=== PATIENT | female | born 1945 | race Caucasian/White ===

== ENCOUNTER 2017-09-07 07:52 | Observation (INO) | payer MEDICARE ==
[~2017-09-07] VITALS: Ht 165.1 cm; Wt 111.4 kg
[2017-09-07 09:03] LABS: HEMATOCRIT 36.5 % (36.0-48.0); MCH 29.6 pg (26.0-34.0); MCHC 32.9 g/dL (31.0-37.0); MCV 90.1 fL (80.0-100.0); MEAN PLATELET VOLUME 8.4 fL (7.4-10.4); NEUTROPHILS 75.8 % (40-80); PLATELET COUNT 377 10x3/uL (130-400); RBC 4.05 10x6/uL (4.00-5.40); RDW 13.1 % (11.5-14.5); WBC 9.8 10x3/uL (4.8-10.8)
[2017-09-07 09:14] LABS: ALBUMIN 2.9 g/dL (3.4-5.0); ALKALINE PHOSPHATASE 97 U/L (46-116); ALT (SGPT) 34 U/L (10-68); BILIRUBIN - TOTAL 0.44 mg/dL (0.2-1.3); CALC OSMOLALITY 270 mosm/kg (275-300); CALCIUM 9.3 mg/dL (8.5-10.1); CARBON DIOXIDE 30.1 mmol/L (21.0-32.0); CHLORIDE - SERUM 98 mmol/L (98-107); CREATININE - SERUM 0.8 mg/dL (0.6-1.3); GLUCOSE 139 mg/dL (74-106); POTASSIUM - SERUM 4.3 mmol/L (3.5-5.1); PROTEIN - SERUM 6.3 g/dL (6.4-8.2); SODIUM 135 mmol/L (136-145); UREA NITROGEN 9 mg/dL (7-18); eGFR NON AFRICAN AMERICAN 75 mL/min (90-120)
[2017-09-07 09:25] LABS: APPEARANCE HAZY (CLEAR); BILIRUBIN NEGATIVE (NEGATIVE); COLOR YELLOW (YELLOW); GLUCOSE NEGATIVE (NEGATIVE); KETONE NEGATIVE (NEGATIVE); NITRITE NEGATIVE (NEGATIVE); PROTEIN NEGATIVE (NEGATIVE); SPECIFIC GRAVITY 1.005 (1.005-1.020)
[2017-09-07 09:26] LABS: BACTERIA MANY /hpf (NONE SEEN)
[2017-09-07 09:27] LABS: EPITHELIAL CELLS 0-5 /hpf (0-5); MUCUS <1+ /lpf (NONE SEEN); RED CELLS - URINE RARE /hpf (0-5)
[2017-09-07] MEDS ORDERED: COREG6.25 MG (20:45)
[2017-09-07 22:44] VITALS: BP 150/69
[2017-09-08 00:59] VITALS: BP 125/69
[2017-09-08] MEDS ORDERED: LASIX40 MG PO (04:58)
[2017-09-08] MEDS ORDERED: COLACE100 MG PO (04:58)
[2017-09-08] MEDS ORDERED: LEVEMIR100 U/M1 SC (04:59)
[2017-09-08] MEDS ORDERED: MIRALAX17 GM PO (05:00)
[2017-09-08] MEDS ORDERED: LIPITOR80 MG PO (05:01)
[2017-09-08] MEDS ORDERED: BAYER CHEWABLE81 MG PO (05:01)
[2017-09-08] MEDS ORDERED: PROAIR HFA8.5 GM INH (05:01)
[2017-09-08] MEDS ORDERED: CELEXA40 MG PO (05:02)
[2017-09-08] MEDS ORDERED: PLAVIX75 MG PO (05:02)
[2017-09-08] MEDS ORDERED: VITAMIN D31000 UNIT PO (05:02)
[2017-09-08] MEDS ORDERED: VISTARIL25 MG PO (05:03)
[2017-09-08] MEDS ORDERED: VISTARIL50 MG PO (05:04)
[2017-09-08] MEDS ORDERED: NOVOLIN R100 U/ML SQ (05:04)
[2017-09-08] MEDS ORDERED: GLUCOPHAGE1000 MG PO (05:08)
[2017-09-08] MEDS ORDERED: NOVOLIN R100 U/ML (05:08)
[2017-09-08] MEDS ORDERED: SYNTHROID150 MCG PO (05:08)
[2017-09-08 05:09] LABS: BASOPHILS 0.4 % (0-2); EOSINOPHILS 2.7 % (0-7); HEMATOCRIT 35.5 % (36.0-48.0); IMMATURE GRANULOCYTES 0.9 % (0-5); LYMPHOCYTES 26.1 % (15-50); MEAN PLATELET VOLUME 9.1 fL (7.4-10.4); MONOCYTES 7.5 % (2-11); NEUTROPHILS 62.4 % (40-80); PLATELET COUNT 360 10x3/uL (130-400); RBC 3.79 10x6/uL (4.00-5.40); RDW 13.5 % (11.5-14.5); WBC 8.1 10x3/uL (4.8-10.8)
[2017-09-08] MEDS ORDERED: ALTACE5 MG PO (05:09)
[2017-09-08] MEDS ORDERED: DETROL LA2 MG PO (05:09)
[2017-09-08] MEDS ORDERED: NITROSTAT0.4 MG SL (05:10)
[2017-09-08 05:17] LABS: MCV 93.7 fL (80.0-100.0)
[2017-09-08 05:27] VITALS: BP 117/54
[2017-09-08 05:30] LABS: ALBUMIN 2.5 g/dL (3.4-5.0); ANION GAP 13.6 mmol/L (8-16); BILIRUBIN - TOTAL 0.5 mg/dL (0.2-1.3); CALCIUM 8.8 mg/dL (8.5-10.1); CARBON DIOXIDE 27.2 mmol/L (21.0-32.0); CREATININE - SERUM 0.9 mg/dL (0.6-1.3); POTASSIUM - SERUM 3.8 mmol/L (3.5-5.1); PROTEIN - SERUM 6.2 g/dL (6.4-8.2)
[2017-09-08 07:57] VITALS: BP 145/63
[2017-09-08 10:25] VITALS: Ht 165.1 cm; Wt 111.4 kg
[2017-09-08 11:30] VITALS: BP 131/62
[2017-09-08 15:52] VITALS: BP 139/73
[2017-09-08 20:07] VITALS: BP 135/55
[2017-09-09] VITALS: BP 121/57
[2017-09-09 05:21] VITALS: BP 127/61
[2017-09-09 06:36] LABS: BASOPHILS 0.6 % (0-2); EOSINOPHILS 3.1 % (0-7); HEMATOCRIT 36.1 % (36.0-48.0); HEMOGLOBIN 11.3 g/dL (12-16); IMMATURE GRANULOCYTES 1.2 % (0-5); LYMPHOCYTES 24.7 % (15-50); MCH 29.4 pg (26.0-34.0); MCHC 31.3 g/dL (31.0-37.0); MEAN PLATELET VOLUME 9.2 fL (7.4-10.4); NEUTROPHILS 63.4 % (40-80); PLATELET COUNT 384 10x3/uL (130-400); RBC 3.84 10x6/uL (4.00-5.40); RDW 13.7 % (11.5-14.5); WBC 8.3 10x3/uL (4.8-10.8)
[2017-09-09 07:18] LABS: ALBUMIN 2.7 g/dL (3.4-5.0); ANION GAP 13.7 mmol/L (8-16); BILIRUBIN - TOTAL 0.42 mg/dL (0.2-1.3); CALCIUM 9.2 mg/dL (8.5-10.1); CREATININE - SERUM 0.9 mg/dL (0.6-1.3); POTASSIUM - SERUM 3.7 mmol/L (3.5-5.1); PROTEIN - SERUM 6.4 g/dL (6.4-8.2)
[2017-09-09 07:51] VITALS: BP 142/68
[2017-09-09 11:43] VITALS: BP 140/72
== END 2017-09-09 16:18 ==
LOC: D.ER 07:52 → OBSVTIME 16:15 → D.M2 16:15
PROVIDERS: Emergency Medicine
DX: R53.1 Weakness (principal); E78.5 Hyperlipidemia, unspecified; E11.9 Type 2 diabetes mellitus without complications; I10 Essential (primary) hypertension; F41.9 Anxiety disorder, unspecified; F32.9 Major depressive disorder, single episode, unspecified; Z95.1 Presence of aortocoronary bypass graft

== ENCOUNTER 2018-03-20 13:13 | Emergency (ER) | payer MEDICARE ==
[~2018-03-20] VITALS: Ht 165.1 cm; Wt 100.0 kg
[~2018-03-20 13:13] MED LIST: ALTACE5 MG PO; BAYER CHEWABLE81 MG PO; CELEXA40 MG PO; COLACE100 MG PO; COREG6.25 MG; DETROL LA2 MG PO; GLUCOPHAGE1000 MG PO; LASIX40 MG PO; LEVEMIR100 U/M1 SC; LIPITOR80 MG PO; MIRALAX17 GM PO; NITROSTAT0.4 MG SL; NOVOLIN R100 U/ML; NOVOLIN R100 U/ML SQ; PLAVIX75 MG PO; PROAIR HFA8.5 GM INH; SYNTHROID150 MCG PO; VISTARIL25 MG PO; VISTARIL50 MG PO; VITAMIN D31000 UNIT PO
[2018-03-20 13:23] VITALS: Ht 165.1 cm; Wt 100.0 kg
[2018-03-20 16:42] VITALS: BP 104/078
== END 2018-03-20 16:45 | disposition home or self-care (01) ==
LOC: D.ER 13:13
DX: S96.911A Strain of unspecified muscle and tendon at ankle and foot level, right foot, initial encounter (principal); X58.XXXA Exposure to other specified factors, initial encounter; Y93.89 Activity, other specified; Y92.019 Unspecified place in single-family (private) house as the place of occurrence of the external cause; E11.9 Type 2 diabetes mellitus without complications; I10 Essential (primary) hypertension

== ENCOUNTER 2018-03-26 19:00 | Outpatient (CLI) | payer MEDICARE ==
[2018-03-20 13:23] VITALS: BMI 36.6
== END 2018-03-26 23:59 | disposition home or self-care (01) ==
LOC: D.MAMMO 19:00
DX: Z12.31 Encounter for screening mammogram for malignant neoplasm of breast (principal)

== ENCOUNTER → 2018-06-20 17:55 | Outpatient (CLI) | payer MEDICARE ==
[2018-03-20 13:23] VITALS: BMI 36.6
== END | disposition home or self-care (01) ==
LOC: D.MAMMO 09:30
DX: R92.8 Other abnormal and inconclusive findings on diagnostic imaging of breast (principal)

== ENCOUNTER 2018-10-06 15:07 | Inpatient (IN) | payer MEDICARE ==
--- NOTE | 2018-10-05 22:11 | NUR ---
RECIEVED REPORT FROM ER. BROUGHT TO FLOOR IN W/C. TRANSFERED SELF INTO BED. ALERT AND ORIENTED X4. LUNG SOUNDS CLEAR BILAT WITH DIMINISHED LOWER LOBES.IV TO RIGHT WRIST AND LEFT AC SL..DENIES ANY NAUSEA AT THIS TIME.
[~2018-10-06] VITALS: Ht 167.6 cm; Wt 105.0 kg
[~2018-10-06 15:07] MED LIST changes: -COREG6.25 MG; +COREG6.25 MG PO
[2018-10-06 16:03] LABS: BASOPHILS 0.7 % (0-2); EOSINOPHILS 1.6 % (0-7); HEMATOCRIT 42.5 % (36.0-48.0); HEMOGLOBIN 13.7 g/dL (12-16); IMMATURE GRANULOCYTES 0.1 % (0-5); LYMPHOCYTES 17.2 % (15-50); MCH 30.4 pg (26.0-34.0); MCHC 32.2 g/dL (31.0-37.0); MCV 94.4 fL (80.0-100.0); MEAN PLATELET VOLUME 9.6 fL (7.4-10.4); MONOCYTES 6.4 % (2-11); PLATELET COUNT 329 10x3/uL (130-400); WBC 9.6 10x3/uL (4.8-10.8)
[2018-10-06 16:15] LABS: ALBUMIN 3.4 g/dL (3.4-5.0); ALKALINE PHOSPHATASE 121 U/L (46-116); ALT (SGPT) 15 U/L (10-68); BILIRUBIN - TOTAL 0.82 mg/dL (0.2-1.3); CALC OSMOLALITY 282 mosm/kg (275-300); CALCIUM 9.5 mg/dL (8.5-10.1); CARBON DIOXIDE 26.4 mmol/L (21.0-32.0); CHLORIDE - SERUM 99 mmol/L (98-107); CREATININE - SERUM 0.9 mg/dL (0.6-1.3); POTASSIUM - SERUM 3.9 mmol/L (3.5-5.1); PROTEIN - SERUM 7.8 g/dL (6.4-8.2); SODIUM 136 mmol/L (136-145); UREA NITROGEN 21 mg/dL (7-18); eGFR NON AFRICAN AMERICAN 65 mL/min (90-120)
[2018-10-06 16:16] LABS: GLUCOSE 250 mg/dL (74-106)
[2018-10-06 16:25] LABS: APPEARANCE CLEAR (CLEAR); BILIRUBIN NEGATIVE (NEGATIVE); COLOR YELLOW (YELLOW); GLUCOSE 100 mg/dL (NEGATIVE); KETONE NEGATIVE (NEGATIVE); NITRITE NEGATIVE (NEGATIVE); PROTEIN 1+ mg/dL (NEGATIVE); UROBILINOGEN NORMAL (NORMAL)
[2018-10-06 16:27] LABS: AMYLASE - SERUM 36 U/L (25-115); CKMB 0.5 U/L (0.0-3.6); LIPASE 87 U/L (73-393); TROPONIN-I < 0.017 ng/mL (0.000-0.060)
--- NOTE | 2018-10-06 19:08 | NUR ---
PT RESTING ON BED, NO S/S OF ACUTE DISTRESS NOTED AT THIS TIME. PT FAMILY AT BEDSIDE. PT AND FAMILY INFORMED OF PLAN OF CARE. PT DENIES NEEDS AT THIS TIME.
[2018-10-06 19:18] VITALS: BP 136/54
[2018-10-06 19:50] VITALS: BP 117/80
[2018-10-06] MEDS ORDERED: SYNTHROID175 MCG PO (22:13)
[2018-10-06] MEDS ORDERED: ZANAFLEX2 M1 PO ×2 (22:16→22:17)
[2018-10-06 22:39] VITALS: BP 117/80; BMI 38.0
[2018-10-06] MEDS ORDERED: FOLIC ACID1 MG PO (22:52)
[2018-10-06 23:55] VITALS: BP 134/72
[2018-10-07 03:53] VITALS: BP 124/67
[2018-10-07 05:22] LABS: EOSINOPHILS 1.9 % (0-7); HEMOGLOBIN 12.4 g/dL (12-16); IMMATURE GRANULOCYTES 0.2 % (0-5); LYMPHOCYTES 35.7 % (15-50); MCH 30.1 pg (26.0-34.0); MCHC 31.8 g/dL (31.0-37.0); MCV 94.7 fL (80.0-100.0); MEAN PLATELET VOLUME 9.8 fL (7.4-10.4); MONOCYTES 6.1 % (2-11); NEUTROPHILS 55.1 % (40-80); PLATELET COUNT 266 10x3/uL (130-400); RBC 4.12 10x6/uL (4.00-5.40)
[2018-10-07 05:29] LABS: WBC 6.2 10x3/uL (4.8-10.8)
[2018-10-07 05:48] LABS: ALKALINE PHOSPHATASE 106 U/L (46-116); BILIRUBIN - TOTAL 0.59 mg/dL (0.2-1.3); CARBON DIOXIDE 28.5 mmol/L (21.0-32.0); CHLORIDE - SERUM 100 mmol/L (98-107); CREATININE - SERUM 0.8 mg/dL (0.6-1.3); POTASSIUM - SERUM 3.7 mmol/L (3.5-5.1); PROTEIN - SERUM 6.8 g/dL (6.4-8.2); SODIUM 137 mmol/L (136-145); UREA NITROGEN 19 mg/dL (7-18); eGFR NON AFRICAN AMERICAN 75 mL/min (90-120)
[2018-10-07 05:49] LABS: ALT (SGPT) 10 U/L (10-68); CALC OSMOLALITY 278 mosm/kg (275-300); GLUCOSE 161 mg/dL (74-106)
--- NOTE | 2018-10-07 07:30 | NUR ---
RECEIVED PT IN BED EYES CLOSED RESP UNLABORED NAD NOTED
[2018-10-07 08:20] VITALS: BP 164/95
[2018-10-07] MEDS ORDERED: OMEPRAZOLE20 M1 PO (09:57)
--- NOTE | 2018-10-07 11:16 | NUR ---
FSBS 235 HUMALOG INSULIN 8 UNITS GIVEN SQ RT ARM ZOFRAN 4 MG GIVEN SIV FOR C/O NAUSEA
[2018-10-07 15:34] VITALS: BP 132/74
--- NOTE | 2018-10-07 17:17 | NUR ---
FSBS 225 HUMALOG 8 UNITS QIVEN SQ RT ARM
--- NOTE | 2018-10-07 20:40 | NUR ---
INITIAL ROUNDS AND ASSESSMENT COMPLETED. SR 85 PER TELEMETRY. SALINE LOCK TO RIGHT WRIST. NONLABORED RESPIRATIONS ON ROOM AIR. TALKING ANIMATEDLY ON PHONE UNTIL NURSE ENTERED ROOM AND THEN PT BECAME VERY SOMBER AND REPEATEDLY TOLD NURSE HOW SICKLY SHE IS AND HOW SHE JUST FEELS "HORRIBLE". WILL MONITOR AND CPOC.
[2018-10-07 21:15] VITALS: BP 102/57
--- NOTE | 2018-10-08 00:46 | NUR ---
BEDTIME WERE GIVEN. FSBS DONE. PT DECLINED SLIDING SCALE INSULIN BLOOD SUGAR LESS THAN 200. MONITOR AND CPOC.
[2018-10-08 01:40] VITALS: BP 128/68
--- NOTE | 2018-10-08 02:52 | NUR ---
PT RESTING IN BED WITH NO DISTRESS. RESPS EVEN/NONLABORED. CALL LIGHT IN REACH. SR UP X 2. MONITOR AND CPOC.
[2018-10-08 04:48] LABS: BASOPHILS 0.4 % (0-2); EOSINOPHILS 2.3 % (0-7); HEMATOCRIT 36.5 % (36.0-48.0); HEMOGLOBIN 11.5 g/dL (12-16); IMMATURE GRANULOCYTES 0.1 % (0-5); MCH 29.6 pg (26.0-34.0); MCHC 31.5 g/dL (31.0-37.0); MCV 94.1 fL (80.0-100.0); MEAN PLATELET VOLUME 9.8 fL (7.4-10.4); MONOCYTES 7.6 % (2-11); NEUTROPHILS 53.6 % (40-80); PLATELET COUNT 274 10x3/uL (130-400); RBC 3.88 10x6/uL (4.00-5.40); WBC 6.9 10x3/uL (4.8-10.8)
[2018-10-08 04:56] VITALS: BP 114/69
[2018-10-08 05:15] LABS: ALBUMIN 2.9 g/dL (3.4-5.0); BILIRUBIN - TOTAL 0.48 mg/dL (0.2-1.3); CALCIUM 8.6 mg/dL (8.5-10.1); CARBON DIOXIDE 29.6 mmol/L (21.0-32.0); MAGNESIUM - SERUM 1.5 mg/dL (1.8-2.4); POTASSIUM - SERUM 3.6 mmol/L (3.5-5.1); PROTEIN - SERUM 6.6 g/dL (6.4-8.2)
[2018-10-08 05:19] LABS: CREATININE - SERUM 1.1 mg/dL (0.6-1.3)
[2018-10-08 07:29] VITALS: BP 121/74
--- NOTE | 2018-10-08 11:00 | NUR ---
ALERT AND ORIENTED X4. SITTING UP IN BED. BLOOD PRESSURE LOW 86/40 MANUALLY. BOLUS 500mL NS. REASSESS BP MANUALLY. BP-110/58. DECREASE FLUID TO KVO. PATIENT REPORTS FEELING BETTER AFTER BOLUS. CONTINUE PLAN OF CARE AND SAFETY PRECAUTIONS. SINUS RHYTHM ON TELEMETRY.
[2018-10-08 11:48] VITALS: BP 110/58
[2018-10-08 14:16] VITALS: Ht 167.6 cm; Wt 105.0 kg
[2018-10-08 15:36] VITALS: BP 104/54
--- NOTE | 2018-10-08 17:07 | NUR ---
ALERT AND ORIENTED X4. RESTING IN BED. COREG HELD DUE TO BP-104/54. SINUS RHYTHM 74 ON TELEMETRY. STAND BY ASSIST TO RESTROOM AND BACK TO BED. DENIES ANY OTHER NEEDS. CONTINUE PLAN OF CARE AND SAFETY PRECAUTIONS.
--- NOTE | 2018-10-08 19:11 | NUR ---
RECIEVED LAYING IN BED WITH EYES CLOSED AND LIGHTS OFF. EASILY AROUSES TO VERBAL STIMULI. IV TO RIGHT WRIST SL.. ORIENTED X4. UP AD MIRIAN TO B/R. TELEMETRTY IN PLACE. SPOKE WITH PT ABOUT POSSIBLE DISCHARGE TOMORROW AND SHE STATED " I DON'T WANT TO GO HOME. I'M NOT WELL AND THEY HAVE'NT FIXED MY STOMACH". EXPLAINED THIS NURSE IS ONLY AWARE OF BILATERAL PE'S AND WE HAVE BEEN TREATMENTING HER FOR THAT. DENIES ANY NEEDS AT THIS TIME.
[2018-10-08 20:21] VITALS: BP 127/70
[2018-10-09 01:31] VITALS: BP 122/62
[2018-10-09 04:13] LABS: BASOPHILS 0.7 % (0-2); EOSINOPHILS 2.7 % (0-7); HEMATOCRIT 35.4 % (36.0-48.0); HEMOGLOBIN 11.3 g/dL (12-16); IMMATURE GRANULOCYTES 0.1 % (0-5); MCH 29.7 pg (26.0-34.0); MCHC 31.9 g/dL (31.0-37.0); MCV 93.2 fL (80.0-100.0); MEAN PLATELET VOLUME 9.5 fL (7.4-10.4); MONOCYTES 6.4 % (2-11); NEUTROPHILS 57.1 % (40-80); PLATELET COUNT 259 10x3/uL (130-400)
[2018-10-09 04:36] LABS: ALBUMIN 2.7 g/dL (3.4-5.0); ANION GAP 12.8 mmol/L (8-16); BILIRUBIN - TOTAL 0.47 mg/dL (0.2-1.3); CALCIUM 8.4 mg/dL (8.5-10.1); CARBON DIOXIDE 27.8 mmol/L (21.0-32.0); CREATININE - SERUM 0.9 mg/dL (0.6-1.3); MAGNESIUM - SERUM 1.4 mg/dL (1.8-2.4); POTASSIUM - SERUM 3.6 mmol/L (3.5-5.1); PROTEIN - SERUM 6.3 g/dL (6.4-8.2)
[2018-10-09 06:19] VITALS: BP 133/66
[2018-10-09 07:27] VITALS: BP 147/80
--- NOTE | 2018-10-09 09:42 | NUR ---
TELEMETRY SR. CALL LIGHT IN REACH. BATH GIVEN WITH TIME STUDY ANALYST ASSIST. WILL CONT. PLAN OF CARE.
[2018-10-09 12:11] VITALS: BP 124/53
[2018-10-09 15:52] VITALS: BP 118/72
--- NOTE | 2018-10-09 17:11 | MORECARE ---
CASE MANAGEMENT DISCHARGE SUMMARY PATIENT: YONAS CARDONA UNIT: [id number] ADM DATE: 10/06/18 AGE: 73 : 47 SEX: F ROOM/BED: D.2130 AUTHOR: SARBJIT DEVRIES PHYSICIAN: REFERRING PHYSICIAN: RE HAMILTON MD DATE OF SERVICE: 10/09/18 Discharge Plan Patient Name: YONAS CARDONA [facility] [facility] 1945 Planned Disposition: Home with Home Health Anticipated Discharge Date: 10/10/18 Discharge Date: Expected LOS: 4 Initial Reviewer: [email or web address] Initial Review Date: 10/06/2018 Generated: 10/09/18 6:11 pm DCPIA - Discharge Planning Initial Assessment Updated by [email or web address]: Tony Coburn on 10/09/18 5:09 pm * Is the patient Alert and Oriented? Yes * How many steps to enter\exit or inside your home? * PCP DR. CARCAMO * [facility]acy [facility] * Preadmission Environment Home Alone * ADLs Independent * Equipment Cane Elevated Toliet Seat Glucometer Walker * Other Equipment NO MEDICAL EQUIPMENT PROVIDER PREFERENCE * List name and contact numbers for known caregivers / representatives who currently or will assist patient after discharge: AWILDA MAYES, BROTHER, * Verbal permission to speak to the caregivers and representatives has been obtained from the patient. N/A * Community resources currently utilized None * Please name any agencies selected above. NONE * Additional services required to return to the preadmission environment? No * Can the patient safely return to the preadmission environment? Yes * Has this patient been hospitalized within the prior 30 days at any hospital? No Patient Name: YONAS CARDONA Page 45412 at 1711 All edits/amendments must be made on the electronic document DICTATION DATE: 10/09/181709 OXYGEN EQUIPMENT TECHNICIAN: CHILANGO 10/09/181709 RPT#: [id number] DC DATE: STATUS: ADM IN [facility] [address] [place] [address] END OF REPORT
--- NOTE | 2018-10-09 17:20 | MORECARE ---
CASE MANAGEMENT DISCHARGE SUMMARY PATIENT: YONAS CARDONA UNIT: [id number] ADM DATE: 10/06/18 AGE: 73 : 47 SEX: F ROOM/BED: D.1620 AUTHOR: KAYCE,DOC PHYSICIAN: REFERRING PHYSICIAN: RE HAMILTON MD DATE OF SERVICE: 10/09/18 Discharge Plan Patient Name: YONAS CARDONA Facility: [facility]:[place] : 1945 Planned Disposition: Home with Home Health Anticipated Discharge Date: 10/10/18 Discharge Date: Expected LOS: 4 Initial Reviewer: [email or web address] Initial Review Date: 10/06/2018 Generated: 10/09/18 6:20 pm Comments DCP- Discharge Planning Updated by [email or web address]: Tony Coburn on 10/09/18 4:[address] Patient Name: YONAS CARDONA Admission Status: ER Accout number: [id number] Admission Date: 10-06-2018 : 1945 Admission Diagnosis:SHORTNESS OF BREATH Attending: RE HAMILTON Current LOS: 3 Anticipated DC Date: 10-10-2018 Planned Disposition: Home with Home Health Primary Insurance: [employer] CHOICE PPO [facility] PLANNED EXTERNAL PROVIDER: TO BE DETERMINED Discharge Planning Comments: CM DIRECTED BY LENO BRUNNER TO DETERMINE IF PT'S INSURANCE WILL COVER ELIQUIS. CM MET WITH PT IN ROOM TO DISCUSS DISCHARGE PLANNING AND NEEDS. PT REPORTS LIVING AT HOME INDEPENDENTLY AND ALONE. PT HAS BLOOD PRESSURE MONITOR, CANE, GLUCOMETER, ELEVATED TOILET SEAT ADN WALKER WITH NO MEDICAL EQUIPMENT PROVIDER PREFERENCE. PT HAS NO OUTSIDE SERVICES ASSISTING IN THE HOME. CM DISCUSSED AVAILABILITY OF HOME HEALTH, REHAB SERVICES AND MEDICAL EQUIPMENT. PT WOULD LIKE HOME HEALTH TO ASSIST WITH MEDICATION MANAGEMENT IF THE DOCTOR AGREES WITH THE NEED, PT REPORTS HER BROTHER WILL PICK HER UP FOR DISCHARGE HOME. PT CALLED HER INSURANCE COMPANY AND NOTIFIED CM THAT [employer] WILL COVER ELIQUIS FOR $8.50 MONTHLY COPAY FOR 30 OR 90 DAY SUPPLY. PT REPORTS THIS IS AFFORDABLE. ELIQUIS IS COVERED BY PT'S INSURANCE. PT REPORTS ABILITY TO AFFORD COPAY FOR ELIQUIS. PT ASKED FOR HOME HEALTH TO ASSIST WITH MEDICATION MANAGEMENT; CM TO ARRANGE HOME HEALTH WITH PHYSICIAN AGREEMENT AND ORDERS FOR HOME HEALTH. Environmental Remediation Consultant: Tony Coburn DCPIA - Discharge Planning Initial Assessment Updated by [id number]: Tony Coburn on 10/09/18 5:09 pm * Is the patient Alert and Oriented? Yes * How many steps to enter\exit or inside your home? * PCP DR. CARCAMO * Pharmacy [facility] * Preadmission Environment Home Alone * ADLs Independent * Equipment Cane Elevated Toliet Seat Glucometer Walker * Other Equipment NO MEDICAL EQUIPMENT PROVIDER PREFERENCE * List name and contact numbers for known caregivers / representatives who currently or will assist patient after discharge: JULIAN COSTELLOER, * Verbal permission to speak to the caregivers and representatives has been obtained from the patient. N/A * Community resources currently utilized None * Please name any agencies selected above. NONE * Additional services required to return to the preadmission environment? No * Can the patient safely return to the preadmission environment? Yes * Has this patient been hospitalized within the prior 30 days at any hospital? No Last DP export: 10/09/18 4:11 p Patient Name: YONAS CARDONA Page [id number] at 1720 All edits/amendments must be made on the electronic document DICTATION DATE: 10/09/181719 ROOMING HOUSE INSPECTOR: CHILANGO 10/09/181719 RPT#: [id number] DC DATE: STATUS: ADM IN [facility] [address] [place] [address] END OF REPORT
[2018-10-09 20:00] VITALS: BP 128/73
--- NOTE | 2018-10-09 20:01 | NUR ---
INITIAL ASSESSMENT COMPLETE - PT FOUND WET IN BED, CHANGED LINENS AND CLEANED PT. READJUSTED IN BED AND PUT SR UP X2. BED IN LOWEST POSITION, CL IN REACH. RR EVEN AND UL, IV SL IN R WRIST. PT A/O X4, STATES SHE HAS PERIODS OF CONFUSION. EDUCATED PT TO CALL WHEN NEEDING HELP, PT VERBALIZED UNDERSTANDING. PLACED YELLOW GOWN ON PT. VSS PER TOP CASE ASSEMBLER. NO OTHER NEEDS NOTED AT THIS TIME. WCTM AND FOLLOW POC.
[2018-10-10 04:00] VITALS: BP 121/57
--- NOTE | 2018-10-10 05:11 | NUR ---
RESUMING PT CARE - PT RESTING IN BED WITH EYES CLOSED. RR EVEN AND UL, NO S/S OF DISTRESS. NO NEEDS NOTED AT THIS TIME. CL IN REACH, SR UP X2, BED IN LOWEST POSITION.
[2018-10-10 05:39] LABS: BASOPHILS 0.6 % (0-2); EOSINOPHILS 3.2 % (0-7); HEMATOCRIT 35.9 % (36.0-48.0); HEMOGLOBIN 11.2 g/dL (12-16); IMMATURE GRANULOCYTES 0.2 % (0-5); LYMPHOCYTES 29.6 % (15-50); MCH 29.7 pg (26.0-34.0); MCHC 31.2 g/dL (31.0-37.0); MEAN PLATELET VOLUME 9.5 fL (7.4-10.4); MONOCYTES 6.9 % (2-11); NEUTROPHILS 59.5 % (40-80); PLATELET COUNT 259 10x3/uL (130-400); RBC 3.77 10x6/uL (4.00-5.40); WBC 6.6 10x3/uL (4.8-10.8)
[2018-10-10 05:55] LABS: MCV 95.2 fL (80.0-100.0)
--- NOTE | 2018-10-10 06:16 | NUR ---
TO PT ROOM VIA AM MEDS. PT STATES HER THROAT AND EARS ARE SWOLLEN AND SORE. PT ALSO STATES SHE THINKS SHE IS HAVING PROBLEMS WITH HER "THYROID" AND WOULD LIKE HER THROAT CHECKED OUT. PALPATED THROAT AND LYMPH NODES SEEMS NORMAL, POSSIBLY SLIGHTLY SWOLLEN. WILL REPORT TO DAY NURSE. NO OTHER NEEDS NOTED AT THIS TIME. CL IN REACH, SR UP X2, BED IN LOWES POSITION.
[2018-10-10 06:24] LABS: ALBUMIN 2.9 g/dL (3.4-5.0); ANION GAP 12.2 mmol/L (8-16); BILIRUBIN - TOTAL 0.33 mg/dL (0.2-1.3); CALCIUM 8.9 mg/dL (8.5-10.1); CARBON DIOXIDE 30.3 mmol/L (21.0-32.0); CREATININE - SERUM 0.9 mg/dL (0.6-1.3); MAGNESIUM - SERUM 1.4 mg/dL (1.8-2.4); POTASSIUM - SERUM 3.5 mmol/L (3.5-5.1); PROTEIN - SERUM 6.6 g/dL (6.4-8.2)
--- NOTE | 2018-10-10 08:08 | NUR ---
INITIAL ROUNDING, THE PATIENT IS SLEEPING,NO S/S OF DISTRESS NOTED
[2018-10-10 08:15] VITALS: BP 132/74
[2018-10-10 10:20] LABS: ACLA - IGG AB <9 GPL U/mL (0-14); ACLA - IGM AB <9 MPL U/mL (0-12)
[2018-10-10 11:52] VITALS: BP 128/68
[2018-10-10] MEDS ORDERED: ELIQUIS5 MG PO ×2 (12:05→12:06)
--- NOTE | 2018-10-10 13:45 | MORECARE ---
CASE MANAGEMENT DISCHARGE SUMMARY PATIENT: YONAS CARDONA UNIT: [id number] ADM DATE: 10/06/18 AGE: 73 : 47 SEX: F ROOM/BED: D.8681 AUTHOR: KAYCE,DOC PHYSICIAN: REFERRING PHYSICIAN: RE HAMILTON MD DATE OF SERVICE: 10/10/18 Discharge Plan Patient Name: YONAS CARDONA Facility: [facility]:[place] : 1945 Planned Disposition: Home with Home Health Anticipated Discharge Date: 10/10/18 Discharge Date: Expected LOS: 4 Initial Reviewer: [id number] Initial Review Date: 10/06/2018 Generated: 10/10/18 2:44 pm Comments DCP- Discharge Planning Updated by [id number]: Tony Coburn on 10/09/18 4:[address] Patient Name: YONAS CARDONA Admission Status: ER Accout number: [id number] Admission Date: 10-06-2018 : 1945 Admission Diagnosis:SHORTNESS OF BREATH Attending: RE HAMILTON Current LOS: 3 Anticipated DC Date: 10-10-2018 Planned Disposition: Home with Home Health Primary Insurance: [employer] CHOICE PPO [facility] PLANNED EXTERNAL PROVIDER: TO BE DETERMINED Discharge Planning Comments: CM DIRECTED BY LENO BRUNNER TO DETERMINE IF PT'S INSURANCE WILL COVER ELIQUIS. CM MET WITH PT IN ROOM TO DISCUSS DISCHARGE PLANNING AND NEEDS. PT REPORTS LIVING AT HOME INDEPENDENTLY AND ALONE. PT HAS BLOOD PRESSURE MONITOR, CANE, GLUCOMETER, ELEVATED TOILET SEAT ADN WALKER WITH NO MEDICAL EQUIPMENT PROVIDER PREFERENCE. PT HAS NO OUTSIDE SERVICES ASSISTING IN THE HOME. CM DISCUSSED AVAILABILITY OF HOME HEALTH, REHAB SERVICES AND MEDICAL EQUIPMENT. PT WOULD LIKE HOME HEALTH TO ASSIST WITH MEDICATION MANAGEMENT IF THE DOCTOR AGREES WITH THE NEED, PT REPORTS HER BROTHER WILL PICK HER UP FOR DISCHARGE HOME. PT CALLED HER INSURANCE COMPANY AND NOTIFIED CM THAT [employer] WILL COVER ELIQUIS FOR $8.50 MONTHLY COPAY FOR 30 OR 90 DAY SUPPLY. PT REPORTS THIS IS AFFORDABLE. ELIQUIS IS COVERED BY PT'S INSURANCE. PT REPORTS ABILITY TO AFFORD COPAY FOR ELIQUIS. PT ASKED FOR HOME HEALTH TO ASSIST WITH MEDICATION MANAGEMENT; CM TO ARRANGE HOME HEALTH WITH PHYSICIAN AGREEMENT AND ORDERS FOR HOME HEALTH. Cnc Grinder: Tony Coburn DCPIA - Discharge Planning Initial Assessment Updated by [id number]: Tony Coburn on 10/09/18 5:09 pm * Is the patient Alert and Oriented? Yes * How many steps to enter\exit or inside your home? * PCP DR. CARCAMO * [facility]acy [facility] * Preadmission Environment Home Alone * ADLs Independent * Equipment Cane Elevated Toliet Seat Glucometer Walker * Other Equipment NO MEDICAL EQUIPMENT PROVIDER PREFERENCE * List name and contact numbers for known caregivers / representatives who currently or will assist patient after discharge: JULIAN COSTELLOER, * Verbal permission to speak to the caregivers and representatives has been obtained from the patient. N/A * Community resources currently utilized None * Please name any agencies selected above. NONE * Additional services required to return to the preadmission environment? No * Can the patient safely return to the preadmission environment? Yes * Has this patient been hospitalized within the prior 30 days at any hospital? No External Providers External Provider: [facility] Next Contact Date: 10/10/2018 Service Request Date: Service Type: Resolution: Reviewer: Comments: Last DP export: 10/09/18 4:20 p Patient Name: YONAS CARDONA Page [id number] at 1345 All edits/amendments must be made on the electronic document DICTATION DATE: 10/10/18 1344 RELOCATION SERVICES SPECIALIST: CHILANGO 10/10/18 1344 RPT#: [id number] DC DATE: STATUS: ADM IN [facility] [address] [place] [address] END OF REPORT
--- NOTE | 2018-10-10 13:56 | MORECARE ---
CASE MANAGEMENT DISCHARGE SUMMARY PATIENT: YONAS CARDONA UNIT: [id number] ADM DATE: 10/06/18 AGE: 73 : 47 SEX: F ROOM/BED: D.0524 AUTHOR: KAYCE,DOC PHYSICIAN: REFERRING PHYSICIAN: RE HAMILTON MD DATE OF SERVICE: 10/10/18 Discharge Plan Patient Name: YONAS CARDONA Facility: [facility]:[place] : 1945 Planned Disposition: Home with Home Health Anticipated Discharge Date: 10/10/18 Discharge Date: Expected LOS: 4 Initial Reviewer: [id number] Initial Review Date: 10/06/2018 Generated: 10/10/18 2:55 pm Comments DCP- Discharge Planning Updated by [email or web address]: Tony Coburn on 10/09/18 4:[address] Patient Name: YONAS CARDONA Admission Status: ER Accout number: [id number] Admission Date: 10-06-2018 : 1945 Admission Diagnosis:SHORTNESS OF BREATH Attending: RE HAMILTON Current LOS: 3 Anticipated DC Date: 10-10-2018 Planned Disposition: Home with Home Health Primary Insurance: [employer] CHOICE PPO [facility] PLANNED EXTERNAL PROVIDER: TO BE DETERMINED Discharge Planning Comments: CM DIRECTED BY LENO BRUNNER TO DETERMINE IF PT'S INSURANCE WILL COVER ELIQUIS. CM MET WITH PT IN ROOM TO DISCUSS DISCHARGE PLANNING AND NEEDS. PT REPORTS LIVING AT HOME INDEPENDENTLY AND ALONE. PT HAS BLOOD PRESSURE MONITOR, CANE, GLUCOMETER, ELEVATED TOILET SEAT ADN WALKER WITH NO MEDICAL EQUIPMENT PROVIDER PREFERENCE. PT HAS NO OUTSIDE SERVICES ASSISTING IN THE HOME. CM DISCUSSED AVAILABILITY OF HOME HEALTH, REHAB SERVICES AND MEDICAL EQUIPMENT. PT WOULD LIKE HOME HEALTH TO ASSIST WITH MEDICATION MANAGEMENT IF THE DOCTOR AGREES WITH THE NEED, PT REPORTS HER BROTHER WILL PICK HER UP FOR DISCHARGE HOME. PT CALLED HER INSURANCE COMPANY AND NOTIFIED CM THAT [employer] WILL COVER ELIQUIS FOR $8.50 MONTHLY COPAY FOR 30 OR 90 DAY SUPPLY. PT REPORTS THIS IS AFFORDABLE. ELIQUIS IS COVERED BY PT'S INSURANCE. PT REPORTS ABILITY TO AFFORD COPAY FOR ELIQUIS. PT ASKED FOR HOME HEALTH TO ASSIST WITH MEDICATION MANAGEMENT; CM TO ARRANGE HOME HEALTH WITH PHYSICIAN AGREEMENT AND ORDERS FOR HOME HEALTH. Auto Damage Trainee: Tony Coburn DCPIA - Discharge Planning Initial Assessment Updated by [id number]: Tony Coburn on 10/09/18 5:09 pm * Is the patient Alert and Oriented? Yes * How many steps to enter\exit or inside your home? * PCP DR. CARCAMO * Pharmacy [facility] * Preadmission Environment Home Alone * ADLs Independent * Equipment Cane Elevated Toliet Seat Glucometer Walker * Other Equipment NO MEDICAL EQUIPMENT PROVIDER PREFERENCE * List name and contact numbers for known caregivers / representatives who currently or will assist patient after discharge: BROTHER COSTELLO, * Verbal permission to speak to the caregivers and representatives has been obtained from the patient. N/A * Community resources currently utilized None * Please name any agencies selected above. NONE * Additional services required to return to the preadmission environment? No * Can the patient safely return to the preadmission environment? Yes * Has this patient been hospitalized within the prior 30 days at any hospital? No Coverage Notice Reviewer: [id number] Coburn Notice Issued Date-Time: 10/10/2018 12:15 Notice Type: IM Discharge Notice Notice Delivered To: Patient Relationship to Patient: Can Maker Name: Delivery Method: HAND - Hand Delivered Rose Days: Prior Verbal Notification: Recipient Understood Notice: Yes Recipient Signature: Yes Med Rec Note Co-signed by Attending: Coverage Notice Comment: Reviewer: [id number] Coburn Notice Issued Date-Time: 10/10/2018 12:15 Notice Type: Patient Choice Letter Notice Delivered To: Patient Relationship to Patient: Can Maker Name: Delivery Method: HAND - Hand Delivered Rose Days: Prior Verbal Notification: Recipient Understood Notice: Yes Recipient Signature: Yes Med Rec Note Co-signed by Attending: Coverage Notice Comment: [facility] Last DP export: 10/10/18 12:45 p Patient Name: YONAS CARDONA Page [phone] at 1356 All edits/amendments must be made on the electronic document DICTATION DATE: 10/10/18 1350 ATTENDING PSYCHIATRIST: CHILANGO 10/10/18 1350 RPT#: [id number] DC DATE: STATUS: ADM IN [facility] [address] [place] [address] END OF REPORT
--- NOTE | 2018-10-10 14:32 | MORECARE ---
CASE MANAGEMENT DISCHARGE SUMMARY PATIENT: YONAS CARDONA UNIT: [id number] ADM DATE: 10/06/18 AGE: 73 : [birth year] SEX: F ROOM/BED: D.9450 AUTHOR: KAYCE,DOC PHYSICIAN: REFERRING PHYSICIAN: RE HAMILTON MD DATE OF SERVICE: 10/10/18 Discharge Plan Patient Name: YONAS CARDONA Facility: [facility]:[place] : 1945 Planned Disposition: Home with Home Health Anticipated Discharge Date: 10/10/18 Discharge Date: Expected LOS: 4 Initial Reviewer: [id number] Initial Review Date: 10/06/2018 Generated: 10/10/18 3:32 pm Comments DCP- Discharge Planning Updated by [id number]: Tony Coburn on 10/10/18 1:[address] Patient Name: YONAS CARDONA Encounter No: [id number] : 1945 Primary Insurance: [employer] PPO [employer] Anticipated DC Date: 10-10-2018 Planned Disposition: Home with Home Health External Planned Provider: [facility] DCP follow-up note: CM RECEIVED DISCHARGE AND HOME HEALTH ORDER, MET WITH PT IN ROOM, DISCUSSED DISCHARGE PLANNING AND NEEDS. PT DENIES NEEDS OTHER THAN HOME HEALTH FOR POSSIBLE HOME THERAPY AND TO ASSIST WITH MANAGING HER MEDICATIONS AT HOME. PT DENIES NEED OF REHAB PLACEMENT OR MEDICAL EQUIPMENT REPORTING SHE HAS ALL OF THE EQUIPMENT SHE NEEDS AT HOME. LISTING OF HOME HEALTH PROVIDERS GIVEN, CHOICE FOR [facility] SIGNED PT HAS USED THEM IN THE PAST AND WANTS THEM AGAIN. IMPORTANT MESSAGE FROM MEDICARE PROVIDED AND EXPLAINED. PT REPORTS HER SON WILL PICK HER UP FOR DISCHARGE HOME. CM CALLED [facility], , SPOKE TO CHIKIS WHO TOOK REFERRAL INFORMATION AND WILL PLACE PT ON SCHEDULE FOR HOME HEALTH ADMIT TOMORROW. CM FAXED REFERRAL AND DISCHARGE INFORMATION TO [facility] AT [phone]. PROGRAM TRAINER NURSE NOTIFIED. Tony Coburn CASE MANAGEMENT DCP- Discharge Planning Updated by [id number]: Tony Coburn on 10/09/18 4:[address] Patient Name: YONAS CARDONA Admission Status: ER Accout number: [id number] Admission Date: 10-06-2018 : [id number] Admission Diagnosis:SHORTNESS OF BREATH Attending: RE HAMILTON Current LOS: 3 Anticipated DC Date: 10-10-2018 Planned Disposition: Home with Home Health Primary Insurance: [employer] CHOICE PPO [facility] ADVANT PLANNED EXTERNAL PROVIDER: TO BE DETERMINED Discharge Planning Comments: CM DIRECTED BY LENO BRUNNER TO DETERMINE IF PT'S INSURANCE WILL COVER ELIQUIS. CM MET WITH PT IN ROOM TO DISCUSS DISCHARGE PLANNING AND NEEDS. PT REPORTS LIVING AT HOME INDEPENDENTLY AND ALONE. PT HAS BLOOD PRESSURE MONITOR, CANE, GLUCOMETER, ELEVATED TOILET SEAT ADN WALKER WITH NO MEDICAL EQUIPMENT PROVIDER PREFERENCE. PT HAS NO OUTSIDE SERVICES ASSISTING IN THE HOME. CM DISCUSSED AVAILABILITY OF HOME HEALTH, REHAB SERVICES AND MEDICAL EQUIPMENT. PT WOULD LIKE HOME HEALTH TO ASSIST WITH MEDICATION MANAGEMENT IF THE DOCTOR AGREES WITH THE NEED, PT REPORTS HER BROTHER WILL PICK HER UP FOR DISCHARGE HOME. PT CALLED HER INSURANCE COMPANY AND NOTIFIED CM THAT [employer] WILL COVER ELIQUIS FOR $8.50 MONTHLY COPAY FOR 30 OR 90 DAY SUPPLY. PT REPORTS THIS IS AFFORDABLE. ELIQUIS IS COVERED BY PT'S INSURANCE. PT REPORTS ABILITY TO AFFORD COPAY FOR ELIQUIS. PT ASKED FOR HOME HEALTH TO ASSIST WITH MEDICATION MANAGEMENT; CM TO ARRANGE HOME HEALTH WITH PHYSICIAN AGREEMENT AND ORDERS FOR HOME HEALTH. Material Worker: Tony Coburn DCA - Discharge Planning Initial Assessment Updated by [email or web address]: Tony Coburn on 10/09/18 5:09 pm * Is the patient Alert and Oriented? Yes * How many steps to enter\exit or inside your home? * PCP DR. CARCAMO * Pharmacy [facility] * Preadmission Environment Home Alone * ADLs Independent * Equipment Cane Elevated Toliet Seat Glucometer Walker * Other Equipment NO MEDICAL EQUIPMENT PROVIDER PREFERENCE * List name and contact numbers for known caregivers / representatives who currently or will assist patient after discharge: AWILDA MAYES, BROTHER, * Verbal permission to speak to the caregivers and representatives has been obtained from the patient. N/A * Community resources currently utilized None * Please name any agencies selected above. NONE * Additional services required to return to the preadmission environment? No * Can the patient safely return to the preadmission environment? Yes * Has this patient been hospitalized within the prior 30 days at any hospital? No Coverage Notice Reviewer: [id number] Richard Coburn Notice Issued Date-Time: 10/10/2018 12:15 Notice Type: IM Discharge Notice Notice Delivered To: Patient Relationship to Patient: Ribbon Lapper Tender Name: Delivery Method: HAND - Hand Delivered Rose Days: Prior Verbal Notification: Recipient Understood Notice: Yes Recipient Signature: Yes Med Rec Note Co-signed by Attending: Coverage Notice Comment: Reviewer: [id number] Coburn Notice Issued Date-Time: 10/10/2018 12:15 Notice Type: Patient Choice Letter Notice Delivered To: Patient Relationship to Patient: Ribbon Lapper Tender Name: Delivery Method: HAND - Hand Delivered Rose Days: Prior Verbal Notification: Recipient Understood Notice: Yes Recipient Signature: Yes Med Rec Note Co-signed by Attending: Coverage Notice Comment: [facility] Last DP export: 10/10/18 12:56 p Patient Name: YONAS CARDONA Page [id number] at 1432 All edits/amendments must be made on the electronic document DICTATION DATE: 10/10/18 143 [place] EQUIPMENT OPERATOR: CHILANGO 10/10/18 1432 RPT#: [id number] DC DATE: STATUS: ADM IN [facility] [address] [place] [address] END OF REPORT
--- NOTE | 2018-10-10 16:48 | NUR ---
THE PATIENT DRESSED HERSELF AND WALKED DOWNSTAIRS TO THE FRONT DOOR. WHEN THIS NURSE WENT BACK INTO THE ROOM SHE WAS GONE. PATIENT WAS LOCATED AND ASSISTED INTO HER [employer] MIGUELITO.
[2018-10-11 11:21] LABS: LUPUS - INTERPRETATION Comment: (()); LUPUS - THROMBIN TIME 25.1 sec (0.0-23.0); LUPUS - dRVVT 35.1 sec (0.0-47.0); PTT-LA 48.8 sec (0.0-51.9)
[2018-10-11 16:11] LABS: PROTEIN S - FREE 100 % (57-157); PROTEIN S - FREE 114 % (57-157); PROTEIN S - FUNCTIONAL 89 % (63-140); PROTEIN S - TOTAL 103 % (60-150); PROTEIN S - TOTAL 108 % (60-150)
[2018-10-12 03:10] LABS: PROTEIN C - ANTIGEN 118 % (60-150); PROTEIN C - FUNCTIONAL 159 % (73-180)
[2018-10-15 18:08] LABS: FACTOR II DNA ANALYSIS Negative (())
== END 2018-10-10 16:49 | disposition home health service (06) | DRG 176 ==
LOC: D.ER 15:07 → D.EDHOLD 18:23 → D.M2 18:23
PROVIDERS: Family Medicine; Internal Medicine Pulmonary Disease; ADMIT Family Medicine
DX: I26.99 Other pulmonary embolism without acute cor pulmonale (principal); N17.9 Acute kidney failure, unspecified; I10 Essential (primary) hypertension; I25.10 Atherosclerotic heart disease of native coronary artery without angina pectoris; E11.65 Type 2 diabetes mellitus with hyperglycemia; E78.5 Hyperlipidemia, unspecified; E03.9 Hypothyroidism, unspecified; E83.42 Hypomagnesemia; Z86.711 Personal history of pulmonary embolism

== ENCOUNTER 2019-03-15 08:00 | Outpatient (CLI) | payer MEDICARE ==
[2018-10-08 14:16] VITALS: BMI 37.1
[~2019-03-15 08:00] MED LIST changes: +ELIQUIS5 MG PO; +FOLIC ACID1 MG PO; +OMEPRAZOLE20 M1 PO; +SYNTHROID175 MCG PO; +ZANAFLEX2 M1 PO
== END 2019-03-15 23:59 | disposition home or self-care (01) ==
LOC: D.MAMMO 08:00
PROVIDERS: ATTEND Family Medicine
DX: Z12.31 Encounter for screening mammogram for malignant neoplasm of breast (principal)

== ENCOUNTER 2019-04-18 10:52 | Emergency (ER) | payer MEDICARE ==
[~2019-04-18] VITALS: Ht 167.6 cm; Wt 109.8 kg
[2019-04-18 11:02] VITALS: Ht 167.6 cm; Wt 109.8 kg
[2019-04-18] MEDS ORDERED: VOLTAREN25 MG PO (11:10)
[2019-04-18] MEDS ORDERED: STERAPRED DS 1010 MG PO (11:10)
[2019-04-18] MEDS ORDERED: CLARITIN 10 MG10 MG PO (11:11)
[2019-04-18] MEDS ORDERED: CYMBALTA30 MG PO (11:11)
[2019-04-18 11:52] LABS: BASOPHILS 0.3 % (0-2); EOSINOPHILS 0.9 % (0-7); HEMATOCRIT 36.1 % (36.0-48.0); HEMOGLOBIN 11.8 g/dL (12-16); IMMATURE GRANULOCYTES 0.6 % (0-5); LYMPHOCYTES 20.9 % (15-50); MCH 30.2 pg (26.0-34.0); MCHC 32.7 g/dL (31.0-37.0); MCV 92.3 fL (80.0-100.0); MEAN PLATELET VOLUME 9.6 fL (7.4-10.4); MONOCYTES 8.3 % (2-11); RBC 3.91 10x6/uL (4.00-5.40); RDW 15.8 % (11.5-14.5); WBC 10.2 10x3/uL (4.8-10.8)
[2019-04-18 11:53] LABS: PLATELET COUNT 316 10x3/uL (130-400)
[2019-04-18 12:00] LABS: APPEARANCE SL CLDY (CLEAR); BILIRUBIN NEGATIVE (NEGATIVE); COLOR YELLOW (YELLOW); GLUCOSE NEGATIVE (NEGATIVE); KETONE NEGATIVE (NEGATIVE); NITRITE NEGATIVE (NEGATIVE); PROTEIN 2+ mg/dL (NEGATIVE); SPECIFIC GRAVITY 1.015 (1.005-1.020); UROBILINOGEN NORMAL (NORMAL)
[2019-04-18 12:01] LABS: BACTERIA MANY /hpf (NONE SEEN); EPITHELIAL CELLS 0-5 /hpf (0-5); WHITE CELLS - URINE >50 /hpf (0-5)
[2019-04-18 12:04] LABS: ALBUMIN 3.2 g/dL (3.4-5.0); ALKALINE PHOSPHATASE 93 U/L (46-116); ALT (SGPT) 25 U/L (10-68); BILIRUBIN - TOTAL 0.45 mg/dL (0.2-1.3); CALC OSMOLALITY 273 mosm/kg (275-300); CALCIUM 9.1 mg/dL (8.5-10.1); CARBON DIOXIDE 28.3 mmol/L (21.0-32.0); CHLORIDE - SERUM 100 mmol/L (98-107); CREATININE - SERUM 1.1 mg/dL (0.6-1.3); GLUCOSE 150 mg/dL (74-106); POTASSIUM - SERUM 3.9 mmol/L (3.5-5.1); PROTEIN - SERUM 7.5 g/dL (6.4-8.2); SODIUM 135 mmol/L (136-145); UREA NITROGEN 15 mg/dL (7-18); eGFR NON AFRICAN AMERICAN 52 mL/min (90-120)
[2019-04-18 12:08] LABS: AMYLASE - SERUM 34 U/L (25-115); LIPASE 98 U/L (73-393); TROPONIN-I < 0.017 ng/mL (0.000-0.060)
[2019-04-18] MEDS ORDERED: MACROBID100 MG PO (13:52)
[2019-04-18 16:07] VITALS: BP 110/62
== END 2019-04-18 16:07 | disposition home or self-care (01) ==
LOC: D.ER 10:52
PROVIDERS: Family Medicine
DX: Z87.440 Personal history of urinary (tract) infections (principal); E11.9 Type 2 diabetes mellitus without complications; Z86.79 Personal history of other diseases of the circulatory system; N39.0 Urinary tract infection, site not specified

== ENCOUNTER 2019-10-09 17:27 | Inpatient (IN) | payer OTHER ==
[~2019-10-09] VITALS: Ht 167.6 cm; Wt 107.3 kg
[2019-10-09] VITALS (11 sets, daily range): BP systolic 87–130; BP diastolic 49–90
--- NOTE | 2019-10-09 18:50 | NUR ---
FEM-STOP BROUGHT AND PLACED BY CVICU NURSES AT A PRESSURE OF 120. PEDAL PULSE PALPABLE, WILL RE-ASSESS INDICATED.
[2019-10-09 18:56] LABS: BASOPHILS 0.5 % (0-2); EOSINOPHILS 1.2 % (0-7); HEMATOCRIT 33.1 % (36.0-48.0); HEMOGLOBIN 10.4 g/dL (12-16); IMMATURE GRANULOCYTES 0.5 % (0-5); LYMPHOCYTES 15.5 % (15-50); MCH 29.1 pg (26.0-34.0); MCHC 31.4 g/dL (31.0-37.0); MCV 92.7 fL (80.0-100.0); MEAN PLATELET VOLUME 9.4 fL (7.4-10.4); MONOCYTES 6.9 % (2-11); NEUTROPHILS 75.4 % (40-80); PLATELET COUNT 428 10x3/uL (130-400); RBC 3.57 10x6/uL (4.00-5.40); RDW 14.6 % (11.5-14.5); WBC 13.8 10x3/uL (4.8-10.8)
[2019-10-09 19:06] LABS: ANION GAP 16.1 mmol/L (8-16); CALCIUM 8.3 mg/dL (8.5-10.1); CARBON DIOXIDE 21.9 mmol/L (21.0-32.0); CREATININE - SERUM 1.2 mg/dL (0.6-1.3)
[2019-10-09 19:12] LABS: ALBUMIN 2.9 g/dL (3.4-5.0); BILIRUBIN - TOTAL 0.58 mg/dL (0.2-1.3); PROTEIN - SERUM 6.2 g/dL (6.4-8.2)
--- NOTE | 2019-10-09 19:28 | NUR ---
PT TO RADIOLOGY IN STABLE CONDITION.
--- NOTE | 2019-10-09 19:58 | NUR ---
PEDIAL PULSE NOTED IN RIGHT FOOT. PT DENIES NEEDS. CALL LIGHT WITHIN REACH, WILL CONTINUE TO MONITOR.
--- NOTE | 2019-10-09 20:30 | NUR ---
DR. TEMPLETON AT BEDSIDE.
[2019-10-09 23:22] LABS: HEMATOCRIT 28.8 % (36.0-48.0); HEMOGLOBIN 8.9 g/dL (12-16)
[2019-10-09 23:30] LABS: APTT 30.7 SECONDS (22.8-39.4)
[2019-10-09 23:33] LABS: INR 1.45 (0.85-1.17); PROTIME 17.5 SECONDS (11.6-15.0)
--- NOTE | 2019-10-09 23:35 | NUR ---
AFTER RECEIVING H AND H RESULTS DR. TEMPLETON NOTIFIED OF HEMATOMA BEING SLIGHTLY LARGER. NEW ORDERS RECEIVED TO TRANSFUSE 2 UNITS OF PRBC'S.
[2019-10-10] VITALS (54 sets, daily range): BP systolic 76–179; BP diastolic 29–110; Ht 167.6 cm; Wt 107.3 kg
--- NOTE | 2019-10-10 01:09 | NUR ---
1ST UNIT OF PRBC'S FINISHED INFUSING WITHOUT ISSUES AT THIS TIME. CALL LIGHT WIHTIN REACH, BED IN LOW POSITION. CHECKED HEMATOMA AT THIS TIME AND NO GROWTH IS NOTED. WILL CONTINUE TO MONITOR.
--- NOTE | 2019-10-10 01:34 | NUR ---
SECOND UNIT OF PRBC STARTED, NURSE AT BEDSIDE WITH PATIENT. PATIENT STATES SHE IS FEELING BETTER AT THIS TIME. CALL LIGHT WITHIN REACH, BED IN LOW POSITION.
[2019-10-10 04:01] LABS: BASOPHILS 0.4 % (0-2); EOSINOPHILS 0.4 % (0-7); HEMATOCRIT 33.5 % (36.0-48.0); HEMOGLOBIN 10.6 g/dL (12-16); IMMATURE GRANULOCYTES 0.4 % (0-5); LYMPHOCYTES 15.9 % (15-50); MCHC 31.6 g/dL (31.0-37.0); MEAN PLATELET VOLUME 9.2 fL (7.4-10.4); NEUTROPHILS 76.9 % (40-80); RBC 3.79 10x6/uL (4.00-5.40); RDW 16.6 % (11.5-14.5); WBC 13.8 10x3/uL (4.8-10.8)
[2019-10-10 04:03] LABS: MCV 88.4 fL (80.0-100.0); PLATELET COUNT 339 10x3/uL (130-400)
--- NOTE | 2019-10-10 04:15 | NUR ---
NOTIFIED OF ENLARGEMENT OF LEG AND DECREASED BP. NEW ORDERS RECEIVED TO PREP FOR SURGERY AND CALL IN OR TEAM.
--- NOTE | 2019-10-10 04:32 | NUR ---
PHONE CALL TO [facility]. UPDATED ON PATIENT'S CONDITION.
[2019-10-10 04:39] LABS: ANION GAP 11.1 mmol/L (8-16); CALCIUM 7.4 mg/dL (8.5-10.1); CREATININE - SERUM 1.2 mg/dL (0.6-1.3); MAGNESIUM - SERUM 1.8 mg/dL (1.8-2.4); POTASSIUM - SERUM 4.5 mmol/L (3.5-5.1)
[2019-10-10 04:40] LABS: CARBON DIOXIDE 27.4 mmol/L (21.0-32.0)
--- NOTE | 2019-10-10 05:15 | NUR ---
DR. TEMPLETON HERE AT PT BEDSIDE ADJUSTED FEMSTOP. PAITENT PROJECTILE VOMITED APPROX 200ML OF LIGHT DELEON EMESIS.
--- NOTE | 2019-10-10 05:42 | NUR ---
HEART TEAM HERE TO GET PATIENT. PATIENT IS LETHARGIC ANSWERING QUESTIONS APPROPRIATLY.
--- NOTE | 2019-10-10 07:56 | NUR ---
PER DR TEMPLETON, PT ABOUT TO BE BACK FROM PROCEDURE, WHEN SHE GETS HERE OBTAIN ABG, XR CHEST, AND PT NEEDS 2 U FFP.
--- NOTE | 2019-10-10 08:16 | NUR ---
PT RETURNED FROM PROCEDURE AT THIS TIME. ON VENT. MONITORING EQUIPMENT PLACED TO PT. DR TEMPLETON HERE, ORDERS RECIEVED.
--- NOTE | 2019-10-10 08:49 | NUR ---
DR LOUIS PAGED REGARDING CONSULT.
--- NOTE | 2019-10-10 08:49 | NUR ---
PER RADIOLOGIST, ETT TUBE IS IN RT MAIN BRONCHUS AND NEEDS TO BE PULLED BACK 3-4 CM. RESPIRATORY THERAPIST NOTIFIED, TAE. ALSO WAITING TO HEAR BACK FROM DR LOUIS.
--- NOTE | 2019-10-10 08:53 | NUR ---
PER DR TEMPLETON, TITRATE LEVOPHED GTT OFF, IF UNABLE TO DO SO THEN NOTIFY PHYSICIAN.
--- NOTE | 2019-10-10 08:55 | NUR ---
DR LOUIS ON UNIT SEEING PT.
[2019-10-10 09:39] LABS: ANION GAP 15.9 mmol/L (8-16); CALCIUM 8.1 mg/dL (8.5-10.1); CREATININE - SERUM 1.2 mg/dL (0.6-1.3); POTASSIUM - SERUM 3.9 mmol/L (3.5-5.1)
[2019-10-10 09:44] LABS: HEMATOCRIT 37.5 % (36.0-48.0); MCH 29.6 pg (26.0-34.0); MCHC 34.1 g/dL (31.0-37.0); MCV 86.8 fL (80.0-100.0); MEAN PLATELET VOLUME 9.7 fL (7.4-10.4); RBC 4.32 10x6/uL (4.00-5.40); RDW 14.8 % (11.5-14.5)
[2019-10-10 10:05] LABS: HEMOGLOBIN 12.8 g/dL (12-16); WBC 18.7 10x3/uL (4.8-10.8)
--- NOTE | 2019-10-10 10:11 | NUR ---
PT TRANSFERRED TO CVICU, BEDSIDE REPORT GIVEN.
--- NOTE | 2019-10-10 13:40 | NUR ---
PT HAD DRAINAGE ON THE OUTER MOST ARIES DRAIN. AREA MARKED WILL CONTINUE TO MONITOR.
--- NOTE | 2019-10-10 14:07 | NUR ---
PT CHECKED WITH ALOT MORE DRAINAGE NOTIFIED. CAME TO BED SIDE AND ASSESSED THE DRAINAGE. REDRESSED AND STRIPPED THE DRAIN. WAS ORDERED TO KEEP STRIPPED EVERY 5 OR 10 MIN.
--- NOTE | 2019-10-10 19:59 | NUR ---
CALLED , UPDATE GIVEN ON PT, LABILE B/P AND TACHYCARDIC ON CM, ORDERS RECEIVED TO TRANSFUSE 1 UNIT PRBC AND GIVE 250ML NS BOLUS, NO FURTHER AT THIS TIME, WILL CONTINUE POC AND MONITOR
--- NOTE | 2019-10-10 22:00 | NUR ---
CALLED R/T PT SBP BELOW 9O, TACHYCARDIC @109bpm, LEVOPHED @ MAX RATE 30ML/HR AND NEOSYNEPHRINE MAX RATE 0.9MCG/KG/MIN, LABS REVIEWED, ORDERS REVEIVED FROM TO TRANSFUSE 1 UNIT PRBC, AND INCREASE NS IVF TO 200ML/HR, NO FURTHER AT THIS TIME, LAB CALLED FOR BLOOD, NEWS LIBRARIAN AMANDA BRINGING PRBC TO CVICU
[2019-10-11] VITALS (50 sets, daily range): BP systolic 85–146; BP diastolic 30–92
--- NOTE | 2019-10-11 00:40 | NUR ---
CALLED R/T HYPOTENSION ON MAX LEVOPHED & SARIKA S/P 2 UNITS PRBC TRANSFUSED, UPDATE GIVEN INCLUDING V/S AND ARIES DRAINS AND URINE OUTPUT, ORDERS RECEIVED TO GET STAT ABG'S AND CALL WITH RESULTS, NO FURTHER AT THHIS TIME, RT NOTIFIED OF STAT ORDERS
--- NOTE | 2019-10-11 00:56 | NUR ---
CALLED R/T PT HYPOTENSIVE WITH LEVOPHED AND SARIKA AT MAX RATE, INFORMED OF RIGHT THIGH SWELLING FIRM AND MEASURED THIGH IS 35 1/4 INCHES, 12AM MEASUREMENT 34 3/4 INCHES, UOP DECREASED WITH LABILE B/P, DISCUSSED WITH ABOUT CONCERNS R/T PT, INFORMED OF ABG RESULTS, ORDERS RECEIVED TO GIVE 1g CALCIUM CHLORIDE IV PUSH NOW, TRANSFUSE x2 UNITS PRBC'S REPEAT ABG'S AFTER BLOOD IS DONE TRANSFUSING AND CALL RESULTS, ALSO TO NOTIFY LAB TO " STAY FOUR UNITS AHEAD ON BLOOD". NO FURTHER AT THIS TIME WILL CONTINUE POC AND MONITOR
--- NOTE | 2019-10-11 03:09 | NUR ---
CALLED R/T ABG RESULTS S/P x2 UNITS PRBC TRANSFUSED AND 1 AMP CALCIUM CHLORIDE IVP GIVEN, UPDATE GIVEN ON PT AND LAB RESULTS, NO ORDERS RECEIVED, WILL CONTINUE TO MONITOR
--- NOTE | 2019-10-11 05:50 | NUR ---
LABS DRAWN AND SENT TO LAB, ORAL CARE AND SUCTIONING COMPLETED, LINES REPOSITIONED, CVP & ART LINE ZEROED
[2019-10-11 06:41] LABS: CREATININE - SERUM 1.3 mg/dL (0.6-1.3); POTASSIUM - SERUM 3.7 mmol/L (3.5-5.1)
[2019-10-11 06:42] LABS: MAGNESIUM - SERUM 1.3 mg/dL (1.8-2.4)
[2019-10-11 06:43] LABS: ANION GAP 14.2 mmol/L (8-16); CALCIUM 6.5 mg/dL (8.5-10.1); CARBON DIOXIDE 21.5 mmol/L (21.0-32.0)
--- NOTE | 2019-10-11 07:15 | NUR ---
INFORMED RN TO CALL FAMILY OF PT AND ASK TO COME TO HOSPITAL THIS MORNING, PT WILL BE TAKEN BACK TO SURGERY TODAY PER , AWILDA PERKINS (BROTHER) CALLED AND INFORMED OF SITUATION, AWILDA PERKINS STATED " I WILL HEAD THAT WAY, BUT IT WILL BE ROUGHLY 45 MINUTES BEFORE I CAN GET THERE" NO FURTHER AT THIS TIME, DAY SHIFT RN INFORMED
[2019-10-11 07:20] LABS: HEMATOCRIT 31.1 % (36.0-48.0); HEMOGLOBIN 10.8 g/dL (12-16); MCH 28.5 pg (26.0-34.0); MCHC 34.7 g/dL (31.0-37.0); MCV 82.1 fL (80.0-100.0); MEAN PLATELET VOLUME 10.4 fL (7.4-10.4); PLATELET COUNT 133 10x3/uL (130-400); RBC 3.79 10x6/uL (4.00-5.40); RDW 16.7 % (11.5-14.5); WBC 22.8 10x3/uL (4.8-10.8)
[2019-10-11 08:52] LABS: HEMATOCRIT 29.5 % (36.0-48.0); HEMOGLOBIN 10.1 g/dL (12-16)
--- NOTE | 2019-10-11 09:47 | NUR ---
0715-RECIEVED PER FLOW SHEET-PT RESPONSIVE-ATTEMPTIING TO PULL AT TUBES-TAPE MEASURE TO R THIGH-90CM--LARGE HEMATOMA TO GROIN [id number] X2 COMPRESSED-PPP WEAK TO R FOOT-ST ON MONITOR-PT BROTHER NOTIFIED REQUESTED BY DR MORALES-WITH REQUEST TO COME IN-PLAN FOR AM RETURN TO OR FOR EXPLORATION AND REPAIR IF NEEDED- 0800-BROTHER AT BEDSIDE-DR MORALES PRESENT AND ADDRESSED STATUS
--- NOTE | 2019-10-11 10:15 | NUR ---
0800-DR MARIE PG'D REQUESTED BY DR PEDROZA TO ADDRESS FAMILY QUESTIONS REGARDING CATH PROCEDURE- 0945-BROTHER WENT HOME 1000-DR MARIE AT BEDSIDE ORDER RECIEVED AND NOTED
[2019-10-11 10:27] LABS: LYMPHOCYTES 11 % (15-50); MONOCYTES 9 % (2-11); NEUTROPHILS 75 % (40-80); PLATELET ESTIMATE NORMAL
[2019-10-11 10:28] LABS: ROULEAUX OCC; SMUDGE CELLS OCC
--- NOTE | 2019-10-11 10:51 | NUR ---
DECREASED PEEP FROM 10 TO 8 @ [address] LOUIS.
--- NOTE | 2019-10-11 13:02 | NUR ---
1100-PT TO OR ACCOMPANIED BY OR TEAM-PORTABLE VENT 1306-RECIEVED CALL FROM DAUGHTER IDENTIFIED LEIGHA [phone] HER MOTHER CALLED HER THE PREVIOUS DAY REGARDING TROUBLE WITH LEG AND SOME BLEEDING-RECIEVED NO FURTHER UPDATE -STRESSD PT IN SERIOUS CONDITION-ON VENTILATOR (LIFE SUPPORT) AND ENCOURAGED TO COME TO HOSPITAL-STATED NOT ABLE IN [facility]-HAD HEAD INJURY AND NOT ABLE TO DRIVE-ENCOURAGED TO CALL AFTER 4:00 FOR POST OR UPDATE-
--- NOTE | 2019-10-11 13:09 | NUR ---
Nutrition Follow-up: Remains intubated. Noted pt to go back to OR for evacuation of hematoma and washout. Diet: NPO Wt: 277.7# (10/11); 235# (10/10); 230# (10/09) Last BM: 10/07 per chart Labs noted: Na 149, K+ 3.7, GFR 43, Glu 153, Ca 6.5, Mg 1.3 Meds noted: Diprivan, Humulin, Levophed, D5 1/2NS @ 50, Solumedrol -If pt remains intubated, rec initiate nutrition support within 24-48 hrs if medically feasible. -Monitor wt. -RD following.
[2019-10-11 13:17] LABS: INR 1.5 (0.85-1.17); PROTIME 17.9 SECONDS (11.6-15.0)
[2019-10-11 13:22] LABS: PLT FUNCT.(P2Y12) PLAVIX 262 PRU (194-418)
--- NOTE | 2019-10-11 14:31 | NUR ---
DECREASED PEEP TO 6 @ [address] LOUIS.
--- NOTE | 2019-10-11 14:36 | CN ---
PATIENT NAME:YONAS CARDONA MEDICAL RECORD: [id number] : 49 LOCATION:[facility]CV05 ADMIT DATE: 10/09/19 ACCOUNT: [id number] CONSULTING PHYSICIAN: ROBYN MARIE MD REFERRING PHYSICIAN: LUIS VELASQUEZ MD DATE OF CONSULTATION: 10/11/2019 CARDIOLOGY CONSULTATION DIAGNOSES: 1. Hypotension. 2. Coronary artery disease. 3. Status post coronary bypass graft surgery. 4. Status post PTCA and stent. 5. Hyperlipidemia. 6. Peripheral vascular disease. HISTORY OF PRESENT ILLNESS: Ms. Cardona presented last week with unstable angina, underwent cardiac catheterization and PTCA and stent of an LAD diagonal. When she was discharged home, she had no problem with the groin. She was returned to the hospital that night with right groin swelling, found to have significant hematoma. FemoStop was placed. She ended up going to the operating room to have evacuation of the hematoma and repair of the profunda femoral artery. She has been hypotensive since preoperatively. She had a normal ejection fraction in the 60% range. She remains intubated on the vent. PHYSICAL EXAMINATION: CONSTITUTIONAL/GENERAL APPEARANCE: Well nourished, well developed, appears stated age. EYES: Lids and conjunctivae noninjected. No discharge. No pallor. ENT: Lips within normal limit. No cyanosis. No pallor. NECK: Carotid arteries, bilateral normal upstroke. No bruits. No thrills. No jugular venous pressure or distention. CERVICAL LYMPH NODES: Nontender. Nonenlarged. THYROID: Not enlarged. No nodules. CARDIOVASCULAR: Precordial exam, nondisplaced. No heaves or pericardial thrills. Rate and rhythm, regular. Heart sounds, normal S1, normal S2. No S3, no gallop, no rub. Systolic murmur, not heard. Diastolic murmur, not heard. RESPIRATORY: Respiratory effort, unlabored. Normal curvature. No thoracic deformity. No chest wall tenderness. Percussion, resonant. Auscultation, clear. No wheezes, no rales, no rhonchi. ABDOMEN: Soft, nondistended, nontender. No abdominal pain, no vomiting and normal appetite. MUSCULOSKELETAL: No joint tenderness, normal gait, normal tone. SKIN: Warm and dry. OVERALL IMPRESSION: Hypotension postoperative, very well may be due to blood loss, however, her hemoglobin is currently 10.8. She is going back to the operating room for re-evacuation of the hematoma. At this time, we will do an echocardiogram to ensure her EF is still the same or did she sustained a myocardial event during the hypotension due to the bleeding. Other than that, no other cardiac workup or treatment is necessary. TRANSINT:[id number] Voice Confirmation ID: [id number] DOCUMENT ID: [id number] CONSULT REPORT [id number] YONAS CARDONA, ROBYN FU at 1436 CC: [id number] DICTATION DATE: 10/11/19 1016 ROPE LAYING MACHINE OPERATOR: 10/11/19 1205 ADM IN [place] [id number] [place] [address]
[2019-10-11 14:38] LABS: BASOPHILS 0.1 % (0-2); EOSINOPHILS 0 % (0-7); HEMATOCRIT 28.9 % (36.0-48.0); HEMOGLOBIN 9.9 g/dL (12-16); IMMATURE GRANULOCYTES 0.6 % (0-5); MCHC 34.3 g/dL (31.0-37.0); MONOCYTES 5.5 % (2-11); NEUTROPHILS 82.8 % (40-80); PLATELET COUNT 154 10x3/uL (130-400); RBC 3.41 10x6/uL (4.00-5.40); RDW 15.7 % (11.5-14.5)
[2019-10-11 14:39] LABS: MCV 84.8 fL (80.0-100.0); WBC 14.2 10x3/uL (4.8-10.8)
[2019-10-11 14:52] LABS: APTT 29.7 SECONDS (22.8-39.4); INR 1.48 (0.85-1.17); PROTIME 17.7 SECONDS (11.6-15.0)
[2019-10-11 14:56] LABS: ANION GAP 14.6 mmol/L (8-16); CALCIUM 7.6 mg/dL (8.5-10.1); CARBON DIOXIDE 23.3 mmol/L (21.0-32.0); CREATININE - SERUM 1.4 mg/dL (0.6-1.3); POTASSIUM - SERUM 3.9 mmol/L (3.5-5.1)
[2019-10-11 17:54] LABS: BASOPHILS 0.1 % (0-2); EOSINOPHILS 0 % (0-7); HEMATOCRIT 27.9 % (36.0-48.0); HEMOGLOBIN 9.6 g/dL (12-16); IMMATURE GRANULOCYTES 0.4 % (0-5); LYMPHOCYTES 9.7 % (15-50); MCH 28.8 pg (26.0-34.0); MCHC 34.4 g/dL (31.0-37.0); MCV 83.8 fL (80.0-100.0); MEAN PLATELET VOLUME 9.9 fL (7.4-10.4); NEUTROPHILS 85.8 % (40-80); PLATELET COUNT 149 10x3/uL (130-400); RBC 3.33 10x6/uL (4.00-5.40); RDW 15.7 % (11.5-14.5); WBC 15.6 10x3/uL (4.8-10.8)
--- NOTE | 2019-10-11 19:20 | NUR ---
REPORT REC'D AND CARE ASSUMED, REC'D PT ON VENT, AROUSES TO DEEP STIMULI BUT DOES NOT OPEN EYES, ON VENT VIA 8.0 ETT TAPED SECURELY AT THE LIP, SEE FLOWSHEET FOR VENT SETTINGS, RIJ CVL WITH 1/2NS @ 100CC/HR, ZINACEF @ 11.4CC/HR, DIPRIVAN @ 20MCG/KG/MIN OR 13.2 CC/HR, AND INSULIN @ 4 UNITS/HR, DRSG CDI, RIGHT RADIAL LINE WITH FLEXION BOARD IN USE, LUCIA LEVELED AND ZEROED WITH APPROPRIATE WAVEFORM, RIGHT GROIN DRSG INTACT MODERATE AMOUNT OF BLOODY DRAINAGE NOTED, ARIES COMPRESSED AND STRIPPED WITH SANGUINOUS DRAINAGE NOTED, RICKS PATENT DRAINING CONCENTRATED URINE, SCD AND DAFNE TO LEFT LEG, PPP, BILAT SOFT WRIST RESTRAINTS INTACT, AIR OVERLAY MATTRESS IN USE, SR UP X 2, VISIBLE TO NURSES STATION.
--- NOTE | 2019-10-11 20:20 | NUR ---
NOTIFIED DR. MORALES OF INCREASED SBP AND THE DIFFERENCE BETWEEN LUCIA AND CUFF PRESSURES. INSTRUCTED TO BEGIN A NITROGLYCERIN GTT FOR SBP OVER 150 AND TO USE CUFF PRESSURES.
--- NOTE | 2019-10-11 23:25 | NUR ---
REASSESSMENT COMPLETED, ATTEMPTED TO COMB TANGLES OUT OF PATIENT'S HAIR, PT REPOSITIONED ONTO RIGHT SIDE SUPPORTED WITH PILLOWS, ARIES DRAIN STRIPPED ORDERED.
[2019-10-12] VITALS (28 sets, daily range): BP systolic 95–141; BP diastolic 42–62
--- NOTE | 2019-10-12 01:30 | NUR ---
REPOSITIONED PT ONTO BACK, EXT'S ELEVATED ON PILLOWS, BP STABLE, NITRO REMAINS OFF, WILL MONITOR CLOSELY FOR CHANGES.
--- NOTE | 2019-10-12 03:30 | NUR ---
REASSESSMENT COMPLETED, NO CHANGES FROM PREVIOUS ASSESSMENT, BP STABLE, WILL CONT TO MONITOR FOR CHANGES.
[2019-10-12 06:42] LABS: ANION GAP 11.3 mmol/L (8-16); CALCIUM 7.1 mg/dL (8.5-10.1); CARBON DIOXIDE 24.6 mmol/L (21.0-32.0); CREATININE - SERUM 1.2 mg/dL (0.6-1.3); MAGNESIUM - SERUM 1.3 mg/dL (1.8-2.4)
[2019-10-12 06:45] LABS: POTASSIUM - SERUM 2.9 mmol/L (3.5-5.1)
[2019-10-12 06:50] LABS: BASOPHILS 0.1 % (0-2); EOSINOPHILS 0 % (0-7); HEMATOCRIT 25.2 % (36.0-48.0); HEMOGLOBIN 8.6 g/dL (12-16); IMMATURE GRANULOCYTES 0.4 % (0-5); LYMPHOCYTES 8.8 % (15-50); MCH 28.6 pg (26.0-34.0); MCHC 34.1 g/dL (31.0-37.0); MCV 83.7 fL (80.0-100.0); MEAN PLATELET VOLUME 9.9 fL (7.4-10.4); MONOCYTES 5.2 % (2-11); NEUTROPHILS 85.5 % (40-80); PLATELET COUNT 179 10x3/uL (130-400); RBC 3.01 10x6/uL (4.00-5.40); WBC 14.7 10x3/uL (4.8-10.8)
[2019-10-12 07:08] LABS: INR 1.29 (0.85-1.17)
--- NOTE | 2019-10-12 10:26 | NUR ---
0700-RECIEVED PER FLOW SHEET-RESPONDS EASILY TO TACTILE STIMULUS-SR WITH PAC ON MONITOR-R FOOT WARM TO TOUCH-J ROMERO COMPRESSED FOR SUCTION
--- NOTE | 2019-10-12 11:07 | OP ---
PATIENT NAME: YONAS CARDONA MEDICAL RECORD: [id number] :49 LOCATION:[facility] D[facility]REST05 ADMISSION DATE:10/09/19 SURGEON: BRIT MORALES MD DATE OF OPERATION: 10/11/2019 PROCEDURE: Exploration of right femoral vessels, status post emergent repair of acute hemorrhage and evacuation of large hematoma. PREOPERATIVE DIAGNOSIS: Hematoma. POSTOPERATIVE DIAGNOSIS: Hematoma. COMPLICATIONS: None. SPECIMENS: None. CONDITION: Critical. DISPOSITION: CV ICU. BLOOD LOSS: 100 cc. FINDINGS: 1. One liter of clotted hematoma. 2. Explore the femoral vessels, one side branch oversewn. A large amount of clotted blood within the subcutaneous tissues and 1 extremely large pocket laterally in front of the muscle and medial inferiorly. A new larger drain was placed. INDICATION: Hypotension, acute blood loss anemia, anticoagulation, hypovolemic shock, and hematoma. DESCRIPTION OF PROCEDURE: The patient was brought to the operating suite. All drains were removed. Vertical incision over the upper thigh was made, taken down through a large hematoma, which was evacuated. The common femoral and the repair site were easily identified, one side branch was oversewn. There was no other obvious bleeding, some slow oozing from the muscle. Wound was packed for 30 minutes, no further bleeding thoroughly irrigated with vancomycin. Separate drain was placed. The wound was closed, subcutaneous and skin clips. TRANSINT:[id number] Voice Confirmation ID: [id number] DOCUMENT ID: [id number] BRIT MORALES MD at 1107 CC: [id number] DICTATION DATE: 10/11/19 1400 PUBLIC HEALTH EDUCATOR: 10/11/19 2311 ADM IN [facility] [address] [place] [address]
--- NOTE | 2019-10-12 15:31 | NUR ---
REPOSITIONED TO L SIDE-FACIAL GRIMACE WITH MOVEMENT-MOREPHINE 2MG IVP GIVEN-VONDA AT 30MCG-DR SHAW AT [facility]-
[2019-10-12 16:00] LABS: MAGNESIUM - SERUM 1.7 mg/dL (1.8-2.4); POTASSIUM - SERUM 3.5 mmol/L (3.5-5.1)
--- NOTE | 2019-10-12 19:25 | NUR ---
DAUGHTER AT BS
--- NOTE | 2019-10-12 19:25 | NUR ---
REPORT REC'D AND CARE ASSUMED, REC'D PT ON VENT VIA 8.0 ETT TAPED AT 23 CM LIPLINE SEE FLOWSHEET FOR VENT SETTTINGS, PT AROUSABLE TO TACTILE STIMULI, BUT DOES NOT OPEN EYES OR FOLLOW COMMANDS, RIJDL, DRSG CDI WITH 1/2NS @ 100CC/HR, DIPRIVAN @ 25MCG/KG/MIN, KCL RIDER INFUSING AND INSULIN GTT @ 4UNITS/HR, RIGHT RADIAL LUCIA WITH FLEXION BOARD IN PLACE POSITIONAL, UNABLE TO ASPIRATE BLOOD FROM LUCIA, ATTEMPTED TO LEVEL AND ZERO WITH FAILED ATTEMPT, GENERALIZED EDEMA, RIGHT GROIN DRSG WITH SMALL AMOUNT SEROSAGUINOUS DRSG, RIGHT THIGH ARIES DRAIN COMPRESSED WITH SANGUINOUS DRAINAGE, RICKS PATENT DRAINING CONCENTRATED URINE, BILAT FEET COOL TO TOUCH, PP WEAKLY PALPABLE, BILAT SOFT WRIST RESTRAINTS INTACT, AIR OVERLAY IN USE, VISIBLE TO NURSES STATION.
--- NOTE | 2019-10-12 21:30 | NUR ---
1 GRAM MAGNESIUM SULFATE GIVEN PER PROTOCOL VIA RIJ
--- NOTE | 2019-10-12 23:10 | NUR ---
FSBS 197, INSULIN GTT INCREASED TO 5.5 UNITS/HR, BP STABLE, PT RESTING EYES CLOSED ON VENT, NO DISTRESS NOTED, WILL CONT TO MONITOR CLOSELY FOR CHANGES.
[2019-10-13] VITALS (26 sets, daily range): BP systolic 99–169; BP diastolic 39–91
--- NOTE | 2019-10-13 02:10 | NUR ---
FSBS 147, INSULIN GTT CONTIUES, RIGHT GROIN/THIGH DRSG SATURATED WITH SEROSANGUINOUS DRAINAGE, DRSG REMOVED AND SITES CLEANED WITH BETADINE, COVERED WITH 4X4'S AND MEDIPORE TAPE, PT TOLERATED WELL, VSS.
--- NOTE | 2019-10-13 05:00 | NUR ---
CHG BATH AND COMPLETE LINEN CHANGE PROVIDED, RICKS CARE PROVIDED, PT REPOSITIONED UP AND ONTO BACK, VSS.
--- NOTE | 2019-10-13 05:35 | NUR ---
AM LAB DRAWN FROM CV AND SENT TO LAB.
[2019-10-13 06:25] LABS: BASOPHILS 0.1 % (0-2); EOSINOPHILS 0.1 % (0-7); HEMATOCRIT 27.4 % (36.0-48.0); HEMOGLOBIN 9.2 g/dL (12-16); IMMATURE GRANULOCYTES 0.6 % (0-5); LYMPHOCYTES 7.8 % (15-50); MCH 28.6 pg (26.0-34.0); MCHC 33.6 g/dL (31.0-37.0); MCV 85.1 fL (80.0-100.0); MONOCYTES 5.7 % (2-11); NEUTROPHILS 85.7 % (40-80); PLATELET COUNT 170 10x3/uL (130-400); RBC 3.22 10x6/uL (4.00-5.40); RDW 16.2 % (11.5-14.5); WBC 14.3 10x3/uL (4.8-10.8)
[2019-10-13 06:27] LABS: ANION GAP 9.4 mmol/L (8-16); CALCIUM 7.2 mg/dL (8.5-10.1); CARBON DIOXIDE 25.1 mmol/L (21.0-32.0); MAGNESIUM - SERUM 2.1 mg/dL (1.8-2.4); POTASSIUM - SERUM 3.5 mmol/L (3.5-5.1)
[2019-10-13 06:29] LABS: CREATININE - SERUM 0.8 mg/dL (0.6-1.3)
--- NOTE | 2019-10-13 06:30 | NUR ---
RADIOLOGY AT BS, PT REPOSITIONED UP AND ONTO RIGHT SIDE SUPPORTED WITH WEDGES, NO VISITORS IN THIS AM
--- NOTE | 2019-10-13 08:46 | NUR ---
CHANGED TO 06/01 @ 0840 FOR PS TRIALS, PER DR. LOUIS.
--- NOTE | 2019-10-13 09:15 | NUR ---
STOPPED PS TRAILS AND PLACED BACK ON ORIGINAL SETTINGS @ 7308
--- NOTE | 2019-10-13 14:21 | NUR ---
NOTED HEART RATE DECREASE TO 60 SR -BMP DRAWN WITH MAG LEVEL
[2019-10-13 14:51] LABS: ANION GAP 7.5 mmol/L (8-16); CALCIUM 7.3 mg/dL (8.5-10.1); CREATININE - SERUM 0.8 mg/dL (0.6-1.3); POTASSIUM - SERUM 3.5 mmol/L (3.5-5.1)
--- NOTE | 2019-10-13 19:00 | NUR ---
PT ASSESSMENT COMPLETED AT THIS TIME, NO CHANGES NOTED FROM NURSE REPORT, PT SEDATED ON VENT SUPPORT, VSS, WILL MONITOR FOR CHANGES
--- NOTE | 2019-10-13 19:20 | NUR ---
DRESSING CHANGED TO RIGHT GROIN, DRESSING SATURATED WITH SEROSANGUINOUS FLUID
--- NOTE | 2019-10-13 21:00 | NUR ---
FSBS CHECKED AT THIS TIME AND WAS 142, NO CHANGES TO BE MADE ON INSULIN DRIP AT THIS TIME
--- NOTE | 2019-10-13 22:45 | NUR ---
DRESSING CHANGED TO RIGHT GROIN, MODERATE AMOUNT OF SEROSANGUIOUS FLUID NOTED
--- NOTE | 2019-10-13 23:00 | NUR ---
PT REASSESSMENT COMPLETED AT THIS TIME, NO CHANGES NOTED FROM PREVIOUS EXAM, VSS, WILL MONITOR FOR CHANGES
[2019-10-14] VITALS (32 sets, daily range): BP systolic 97–167; BP diastolic 47–104
--- NOTE | 2019-10-14 01:00 | NUR ---
pt sedated on the vent, vss, will monitor for changes
--- NOTE | 2019-10-14 03:00 | NUR ---
PT REASSESSMENT COMPLETED AT THIS TIME, NO CHANGES NOTED FROM PREVIOUS EXAM, VSS, WILL MONITOR FOR CHANGES
--- NOTE | 2019-10-14 03:50 | NUR ---
DRESSING TO RIGHT GROIN WAS CHANGED, SEROSANGUINEOUS FLUID NOTED
--- NOTE | 2019-10-14 05:00 | NUR ---
I AND O, AND DAILY WEIGHT COMPLETED AND DOCUMENTED AT THIS TIME
[2019-10-14 06:34] LABS: BASOPHILS 0 % (0-2); EOSINOPHILS 0 % (0-7); HEMATOCRIT 26.4 % (36.0-48.0); HEMOGLOBIN 8.9 g/dL (12-16); IMMATURE GRANULOCYTES 0.5 % (0-5); LYMPHOCYTES 9.2 % (15-50); MCHC 33.7 g/dL (31.0-37.0); MEAN PLATELET VOLUME 10.2 fL (7.4-10.4); MONOCYTES 5.4 % (2-11); NEUTROPHILS 84.9 % (40-80); PLATELET COUNT 188 10x3/uL (130-400); RBC 3.07 10x6/uL (4.00-5.40); RDW 15.9 % (11.5-14.5); WBC 12.3 10x3/uL (4.8-10.8)
[2019-10-14 06:52] LABS: CALC OSMOLALITY 286 mosm/kg (275-300); CALCIUM 7.3 mg/dL (8.5-10.1); CARBON DIOXIDE 24.4 mmol/L (21.0-32.0); CHLORIDE - SERUM 110 mmol/L (98-107); CREATININE - SERUM 0.7 mg/dL (0.6-1.3); GLUCOSE 116 mg/dL (74-106); MAGNESIUM - SERUM 2.1 mg/dL (1.8-2.4); POTASSIUM - SERUM 3.4 mmol/L (3.5-5.1); SODIUM 142 mmol/L (136-145); UREA NITROGEN 20 mg/dL (7-18); eGFR NON AFRICAN AMERICAN 87 mL/min (90-120)
--- NOTE | 2019-10-14 08:00 | NUR ---
DR MORALES AT BEDSIDE. DRSG REMOVED AND INCISIONS EXAMINED. VERBAL ORDER FOR LASIX IV X 1 AND APPLY BETADINE TO INCISIONS 3 TIMES PER SHIFT WITH DRSG CHANGES. ORDER TO STOP 1/2 NS.
--- NOTE | 2019-10-14 09:51 | NUR ---
Nutrition Consult/Follow-up: Received consult to start TF. Remains intubated. Noted hold free H2O from OGT per Dr. Oshea's note. Diet: NPO Wt: 287.4# (10/14); 277.7# (10/11); 231.6# (10/09) Last BM: 10/07 per chart Labs noted: K+ 3.4, Glu 116, Ca 7.3 Meds noted: 1/2NS @ 100, Diprivan, Solumedrol, Humulin -Start Pulmocare @ 15 mL/hr and increase by 10 mL/hr q 6 hrs to goal rate of 45 mL/hr; flushes per MD. -Monitor wt. -RD following. Thanks for the consult!
--- NOTE | 2019-10-14 11:30 | NUR ---
DRSG CHANGED AFTER INCISIONS CLEANED WITH BETADINE
--- NOTE | 2019-10-14 14:17 | MORECARE ---
CASE MANAGEMENT DISCHARGE SUMMARY PATIENT: YONAS CARDONA UNIT: [id number] ADM DATE: 10/09/19 AGE: 74 : [birth year] SEX: F ROOM/BED: [facility] AUTHOR: SARBJIT DEVRIES PHYSICIAN: REFERRING PHYSICIAN: LUIS VELASQUEZ MD DATE OF SERVICE: 10/14/19 Discharge Plan Patient Name: YONAS CARDONA [facility] [facility] 1945 Planned Disposition: Anticipated Discharge Date: Discharge Date: Expected LOS: Initial Reviewer: [email or web address] Initial Review Date: 10/14/2019 Generated: 10/14/19 3:17 pm DCPIA - Discharge Planning Initial Assessment Updated by [id number]: Jessica Barron on 10/14/19 2:14 pm * Is the patient Alert and Oriented? No * Preadmission Environment Home Alone * ADLs Independent * Other Equipment CANE, WALKER * Additional services required to return to the preadmission environment? Yes Patient Name: YONAS CARDONA Page [phone] at 1417 All edits/amendments must be made on the electronic document DICTATION DATE: 10/14/191416 GARAGE DOOR OPENER INSTALLER: CHILANGO 10/14/191416 RPT#: [id number] DC DATE: STATUS: ADM IN [facility] [address] [place] [address] END OF REPORT
--- NOTE | 2019-10-14 14:27 | MORECARE ---
CASE MANAGEMENT DISCHARGE SUMMARY PATIENT: YONAS CARDONA UNIT: [id number] ADM DATE: 10/09/19 AGE: 74 : 47 SEX: F ROOM/BED: [facility] AUTHOR: SARBJIT DEVRIES PHYSICIAN: REFERRING PHYSICIAN: LUIS VELASQUEZ MD DATE OF SERVICE: 10/14/19 Discharge Plan Patient Name: YONAS CARDONA Facility: [facility]:[place] : 1945 Planned Disposition: Anticipated Discharge Date: Discharge Date: Expected LOS: Initial Reviewer: [email or web address] Initial Review Date: 10/14/2019 Generated: 10/14/19 3:26 pm Comments DCP- Discharge Planning Updated by [email or web address]: Jessica Barron on 10/14/19 1:[address] Patient Name: YONAS CARDONA Admission Status: ER Accout number: [id number] Admission Date: 10-09-2019 : 1945 Admission Diagnosis: Attending: LUIS VELASQUEZ Current LOS: 5 Anticipated DC Date: Planned Disposition: Primary Insurance: [id number] Discharge Planning Comments: CM SPOKE WITH PATIENT'S EMERGENY CONTACT, AWILDA MAYES-BROTHER, AT [phone]. HE STATES HE LIVES NEXT DOOR TO HER AND SHE LIVES ALONE. STATES A NURSE CAME OUT OCCASIONALLY TO SEE HER BUT DOESN'T KNOW WHO. UNSURE OF NEEDS AT THIS MOMENT. SHE IS STILL ON THE VENT. BROTHER STATES HE WOULD LIKE TO BE CALLED WHEN SHE IS AWAKE. ALSO STATES SHE DOES HAVE A DAUGHTER IN ANOTHER STATE, LEIG[place] [phone]. CM TO FOLLOW AND ASSIST. I ANTICIPATE HH VS REHAB VS SNF. Behavioral Geneticist: Jessica Barron DCPIA - Discharge Planning Initial Assessment Updated by [id number]: Jessica Barron on 10/14/19 2:14 pm * Is the patient Alert and Oriented? No * Preadmission Environment Home Alone * ADLs Independent * Other Equipment CANE, WALKER * Additional services required to return to the preadmission environment? Yes Last DP export: 10/14/19 1:17 p Patient Name: YONAS CARDONA Page [id number] at 1427 All edits/amendments must be made on the electronic document DICTATION DATE: 10/14/191425 ASSOCIATE FINANCIAL ANALYST: CHILANGO 10/14/191425 RPT#: [id number] DC DATE: STATUS: ADM IN [facility] [address] [place] [address] END OF REPORT
--- NOTE | 2019-10-14 16:00 | NUR ---
DRSG CHANGED, INCISIONS CLEANED WITH BETADINE. ERMAINS SEDATED ON VENT. WAKES UP OCCASIONALLY AGGITATED.
--- NOTE | 2019-10-14 16:38 | EC ---
PATIENT:YONAS CARDONA DATE OF SERVICE: 10/09/19 SEX: F MEDICAL RECORD: [id number] DATE OF : [birth year] LOCATION:[place] [address] AGE OF PATIENT: 74 ADMISSION DATE: 10/09/19 REFERRING PHYSICIAN: INTERPRETING PHYSICIAN: ROBYN MONTELONGO MD ECHOCARDIOGRAM REPORT ECHO CHARGES 4 ECHO COMPLETE Date: 10/11/19 CLINICAL DIAGNOSIS: HYPOTENSION ECHOCARDIOGRAPHIC MEASUREMENTS (adult normal given) AC root (d.<3.7cm) 2.9 cm LV Septum d (<1.2 cm> 0.9 cm Valve Excursion 1.7 cm LV Septum (systole) 1.1 cm Left Atria (s.<4.0cm> 3.3 cm LVPW d(<1.2cm) 1.0 cm RV (d.<2.3cm) 2.3 cm LVPW (sytole) 1.4 cm LV diastole(<5.6CM) 5.3 cm MV E-F(>70mm/sec) cm LV systole 3.6 cm LVOT Diameter 1.6 cm MV exc.(>10mm) cm Est.ejection fraction (50-75%) % DOPPLER: LVIT cm/sec A 126 cm/sec E 81 cm/sec LA cm/sec RVSP 45.4 mmHg LVOT 118 cm/sec AOP1/2T m/s Asc. Ao 170 cm/sec RVOT 75 cm/sec RA cm/sec PA 85 cm/sec AV Gradient Peak 11.5 mmHg AV Mean 6.3 mmHg AV Area 1.7 cm MV Gradient Peak 10.1 mmHg MV Mean 4.1 mmHg MV Area cm COMMENTS: Silk Top Hat Body Maker: Kain [facility] Debone Processing Supervisor: 1 Dr. Montelongo TAPE# PACS Pericardial Effusion N DATE OF SERVICE: ECHOCARDIOGRAM FINDINGS: 1. Left ventricular chamber size is within normal limits. Left ventricular systolic function is normal. Overall ejection fraction estimated at 60%. 2. Left atrium, right atrium, and right ventricle chamber sizes are within normal limits. 3. Valvular structures have normal structure and motion. ECHOCARDIOGRAM REPORT [id number] YONAS CARDONA 4. Doppler interrogation reveals mild tricuspid regurgitation, no other valvular insufficiency or stenosis. 5. No evidence of pericardial effusion or left ventricular thrombus. TRANSINT:[id number] Voice Confirmation ID: [id number] DOCUMENT ID: [id number] ROBYN MONTELONGO MD at 1638 CC: [id number] DICTATION DATE: 10/11/19 1507 HOUSING DIRECTOR: 10/11/191958 ADM IN [facility] [address] [place] [id number]
--- NOTE | 2019-10-14 19:00 | NUR ---
Patient assessment completed at this time, no changes noted from nurse report. Patient is sedated on vent support. Vital signs are stable at this time, will monitor for changes.
--- NOTE | 2019-10-14 21:00 | NUR ---
Patient rounding was done at this time, patient remains sedated on the vent. Patient will respond to mild to moderate stimulation, and then drift back to sleep. Vital signs stable at this time, will continue to monitor for changes.
--- NOTE | 2019-10-14 23:00 | NUR ---
Patient reassessment complete at this time, no changes noted from previous exam. Patient remains sedated on the ventilator, patient well respond to mild to moderate stimulation. Vital signs continue to be stable, will continue to monitor for changes.
[2019-10-15] VITALS (39 sets, daily range): BP systolic 103–190; BP diastolic 46–136
--- NOTE | 2019-10-15 00:22 | NUR ---
DRESSING CHANGED TO RIGHT GROIN AT THIS TIME, SEROSANGUINOUS DRAINAGE NOTED, INCISIONS PAINTED WITH BETADINE AND DRESSING PLACED ON SITES.
--- NOTE | 2019-10-15 01:00 | NUR ---
PT SEDATED ON VENT SUPPORT, NO DISTRESS NOTED, VSS
--- NOTE | 2019-10-15 01:00 | NUR ---
PT RESTING WITH EYES CLOSED, PT AWAKES TO NAME, NO DISTRESS NOTED NOTED, VSS
--- NOTE | 2019-10-15 05:00 | NUR ---
CHG BATH COMPLETED AND LINEN CHANGED, VSS, WILL MONITOR FOR CHANGES
[2019-10-15 07:17] LABS: BASOPHILS 0 % (0-2); EOSINOPHILS 0 % (0-7); HEMATOCRIT 29.5 % (36.0-48.0); HEMOGLOBIN 9.7 g/dL (12-16); IMMATURE GRANULOCYTES 1.1 % (0-5); LYMPHOCYTES 9.2 % (15-50); MCH 28.4 pg (26.0-34.0); MCHC 32.9 g/dL (31.0-37.0); MCV 86.5 fL (80.0-100.0); MEAN PLATELET VOLUME 10.1 fL (7.4-10.4); MONOCYTES 7.4 % (2-11); NEUTROPHILS 82.3 % (40-80); RBC 3.41 10x6/uL (4.00-5.40); RDW 15.8 % (11.5-14.5); WBC 14.8 10x3/uL (4.8-10.8)
[2019-10-15 07:18] LABS: PLATELET COUNT 240 10x3/uL (130-400)
[2019-10-15 07:41] LABS: ALBUMIN 2.1 g/dL (3.4-5.0); ANION GAP 10.1 mmol/L (8-16); BILIRUBIN - TOTAL 0.71 mg/dL (0.2-1.3); CALCIUM 7.8 mg/dL (8.5-10.1); CARBON DIOXIDE 26.5 mmol/L (21.0-32.0); PHOSPHOROUS 3.3 mg/dL (2.5-4.9); POTASSIUM - SERUM 3.6 mmol/L (3.5-5.1); PROTEIN - SERUM 5.1 g/dL (6.4-8.2)
[2019-10-15 07:42] LABS: CREATININE - SERUM 0.9 mg/dL (0.6-1.3)
[2019-10-15 07:55] LABS: APTT 24.1 SECONDS (22.8-39.4); INR 1.04 (0.85-1.17); PROTIME 13.6 SECONDS (11.6-15.0)
--- NOTE | 2019-10-15 11:00 | NUR ---
PROPOFOL TURNED OFF FOR BREATHING TRIAL.
--- NOTE | 2019-10-15 12:45 | NUR ---
EXTUBATED PER RT.
--- NOTE | 2019-10-15 13:30 | NUR ---
PT IS CONFUSED AND VERY ANXIOUS. TRYING TO PULL TUBES/LINES AND GET UP. REMAINS IN BILATERAL WRIST RESTRAINTS. MONIITORING VERY CLOSELY
--- NOTE | 2019-10-15 16:00 | NUR ---
REMANS VERY CONFUSED. THINKS STAFF IS TRYING TO KILL HER. UNABLE TO CALM HER. SHE DOES NOT BELIEVE THAT SHE IS IN THE HOSPITAL. HYPERTENSIVE. MED ORDERED PER DR HAMILTON.
--- NOTE | 2019-10-15 20:00 | NUR ---
PT VERY CONFUSED, THINKS STAFF IS TRYING TO KILL HER REPEATING " PLEASE DON'T KILL ME", PT DOESNT BELEIVE SHE IS IN HOSPITAL, ATTEMPTED TO REORIENT TO PLACE AND SITUATION, VSS, WILL CONTINUE TO MONITOR
--- NOTE | 2019-10-15 21:27 | NUR ---
DAUGHTER CALLED, UPDATE GIVEN, NO FURTHER AT THIS TIME, WILL CONTINUE TO MONITOR
--- NOTE | 2019-10-15 21:30 | NUR ---
SIPS OF ICE WATER GIVEN PER REQUEST
--- NOTE | 2019-10-15 22:00 | NUR ---
PT CONTINUALY SLAPPING HANDS ON BEDRAILES, PT THINKS STAFF TRYING TO HURT HER, ATTEMPTED TO REORIENT PT TO SITUATION, PT DOESN'T BELEIVE SHE IS IN HOSPITAL, VSS, WILL CONTINUE TO MONITOR
--- NOTE | 2019-10-15 23:30 | NUR ---
PT PRESSED CALL LIGHT, STATED SHE NEEDED TO SPIT, ORAL SUCTIONING COMPLETED, SMALL SIPS OF ICE WATER GIVEN PER REQUEST, REPOSITIONED IN BED FOR COMFORT, VSS, WILL CONTINUE TO MONITOR
--- NOTE | 2019-10-15 23:45 | NUR ---
PT PRESSED CALL LIGHT, REQUESTING ASSISTANCE IN MOVING LEGS TO D/T DISCOMFORT, ROM COMPLETED ON EXTREMITIES, PT STATES RELEIF OF DISCOMFORT, SMALL SIPS ICE WATER GIVEN PER REQUEST, I/S COMPLETED [id number] REVIEWED TEACHING ON USE, COUGH AND DEEP BREATH COMPLETED, CALL LIGHT IN REACH, BED ALARM ON, VSS WILL CONTINUE TO MONITOR
[2019-10-16] VITALS (32 sets, daily range): BP systolic 106–156; BP diastolic 47–73
--- NOTE | 2019-10-16 00:15 | NUR ---
PT PRESSED CALL LIGHT, SMALL SIPS ICE WATER GIVEN PER REQUEST
--- NOTE | 2019-10-16 03:30 | NUR ---
CALL LIGHT PRESSED, ICE CHIPS GIVEN PER REQUEST, PT C/O RUNNY NOSE, NOSE WIPPED PER AND NC PLACED BACK IN NOSE, REPOSITIONED FOR COMFORT, CALL LIGHT IN HAND, VSS, WILL CONTINUE TO MONITOR
--- NOTE | 2019-10-16 05:00 | NUR ---
CVL DRSG CHANGED PER PROTOCAL, RIGHT UPPER THIGH/GROIN DRSG'S CHANGED PER ORDERS, NO S/S OF DISTRESS, PT TOLLERATED PROCEDURE WELL, VSS, WILL CONTINUE TO MONITOR
--- NOTE | 2019-10-16 06:30 | NUR ---
CALL LIGHT PRESSED, ICE CHIPS GIVEN PER REQUEST, REPOSITIONED FOR COMFORT, VSS, NO FURTHER NEEDS AT THIS TIME, WILL CONTINUE TO MONITOR
[2019-10-16 06:42] LABS: ALBUMIN 2.1 g/dL (3.4-5.0); ALKALINE PHOSPHATASE 68 U/L (30-120); ALT (SGPT) 74 U/L (10-68); APTT 25.1 SECONDS (22.8-39.4); BILIRUBIN - TOTAL 1.07 mg/dL (0.2-1.3); CALCIUM 8.1 mg/dL (8.5-10.1); CARBON DIOXIDE 29.2 mmol/L (21.0-32.0); CHLORIDE - SERUM 109 mmol/L (98-107); CREATININE - SERUM 0.7 mg/dL (0.6-1.3); INR 1.04 (0.85-1.17); MAGNESIUM - SERUM 1.8 mg/dL (1.8-2.4); PHOSPHOROUS 3.6 mg/dL (2.5-4.9); PROTEIN - SERUM 5.5 g/dL (6.4-8.2); PROTIME 13.6 SECONDS (11.6-15.0); SODIUM 145 mmol/L (136-145); UREA NITROGEN 22 mg/dL (7-18); eGFR NON AFRICAN AMERICAN 87 mL/min (90-120)
[2019-10-16 06:54] LABS: CALC OSMOLALITY 291 mosm/kg (275-300); GLUCOSE 103 mg/dL (74-106); POTASSIUM - SERUM 4.2 mmol/L (3.5-5.1)
--- NOTE | 2019-10-16 08:00 | NUR ---
PT IS AWAKE AND ALERT. RESTRAINTS REMOVED. FOLLOWS COMMANDS. ON BEDSIDE TO DANGLE. TOLERATED WELL THEN OOB TO CHAIR PER PT.
[2019-10-16 08:05] LABS: BASOPHILS 0.1 % (0-2); EOSINOPHILS 0.1 % (0-7); HEMATOCRIT 32.8 % (36.0-48.0); HEMOGLOBIN 10.6 g/dL (12-16); IMMATURE GRANULOCYTES 1.1 % (0-5); LYMPHOCYTES 14.9 % (15-50); MCH 28.9 pg (26.0-34.0); MCHC 32.3 g/dL (31.0-37.0); MEAN PLATELET VOLUME 10.2 fL (7.4-10.4); MONOCYTES 10.1 % (2-11); NEUTROPHILS 73.7 % (40-80); RBC 3.67 10x6/uL (4.00-5.40); RDW 16.7 % (11.5-14.5); WBC 15.4 10x3/uL (4.8-10.8)
[2019-10-16 08:06] LABS: MCV 89.4 fL (80.0-100.0); PLATELET COUNT 319 10x3/uL (130-400)
--- NOTE | 2019-10-16 11:00 | NUR ---
REMAINS IN CHAIR AT BEDSIDE. TOLERATING ICE CHIPS.
--- NOTE | 2019-10-16 13:21 | NUR ---
Nutrition Follow-up: Extubated yesterday. ST eval pending. Noted I/Os (-6229.5 cc on 10/15). Diet: NPO Wt: 250.2# (10/16); 270# (10/14); 230# (10/09) Last BM: 10/07 per chart Labs noted: Ca 8.1, Alb 2.1 Meds noted: Lasix, KCl, Protonix, Solumedrol, Humulin, Zofran -Rec ADAT to cardiac carb consistent with consistencies per ST when medically feasible. -Monitor wt. -RD following.
--- NOTE | 2019-10-16 15:00 | NUR ---
REMAINS IN CHAIR. PASSED SWALLOW EVAL. HAS HAD 2 DOSES OF ZOFRAN PER ORDER FOR NAUSEA.
--- NOTE | 2019-10-16 17:00 | NUR ---
BACK TO BED WITH ASSISTANCE FROM PT. TOLERATED WELL. PTS BROTHER VISITING.
--- NOTE | 2019-10-16 19:00 | NUR ---
REPORT RECEIVED, SHIFT ASSESSMENT COMPLETE PER FLOW SHEET, PT AWAKE AND ALERT, DENIES PAIN AT THIS TIME, REPOSITIONED FOR COMFORT IN BED, RIGHT THIGH ARIES DRAIN COMPRESSED WITH BLOODY DRAINAGE IN BULB, ALL DRSG'S C/D/I, RICKS CATH TO GRAVITY WITHCLEAR YELLOW VOID, RIGHT THIGH/GROIN/FLANK BRUISING NOTED, ALL PULSES PALPABLE, VSS, CALL LIGHT IN KOFFI, BED ALARM ON, FALL TEACHING PROVIDED, I/S COMPLETED [id number] WITH FLUDDER AND TCDB, LARGE CUP ICE WATER GIVEN PER REQUEST, WILL CONTINUE TO MONITOR
--- NOTE | 2019-10-16 22:30 | NUR ---
CALL LIGHT PRESSED BY PT, C/O URIATING IN BED, PT LEAKING URINE AROUND RICKS CATH, RICKS CATH INTACT WITH URINE DRAINING TO GRAVITY BAG, ADDED INFLATION TO CATHETER BULD AND LEAKAGE STOPPED, CHG BATH AND LINEN CHANGE COMPLETED, PT TOLLERATED WELL WITH NO S/S OF DISTRESS, PERICARE/RICKS CARE COMPLETED, RIGHT GROIN AND THIGH DRSG'S CHANGED, REPOSITIONED PT IN BED FOR COMFORT, HOB ELEVATED, I/S COMPLETED [id number], TCDB DONE, CUP ICE WATER GIVEN PER REQUEST, VSS, WILL CONTINUE TO MONITOR
--- NOTE | 2019-10-16 23:00 | NUR ---
REASSESSMENT COMPLETE PER FLOW SHEET, NO ACUTE CHANGES FROM PRIOR ASSESSMENT, PT AWAKE AND ALERT, REPOSITIONED FOR COMFORT, RICKS CATH TO GRAVITY PATENT WITH NO LEAKAGE NOTED, ALL DRSG'S C/D/I, I/S COMPLETED [id number] TCDB AND FLUDDER DONE, CUP ICE WATER GIVEN PER REQUEST, CALL LIGHT IN REACH, WILL CONTINUE TO MONITOR
[2019-10-17] VITALS (26 sets, daily range): BP systolic 102–147; BP diastolic 45–87
[2019-10-17 01:38] LABS: MAGNESIUM - SERUM 1.7 mg/dL (1.8-2.4)
--- NOTE | 2019-10-17 01:45 | NUR ---
CALL LIGHT PRESSED, PT C/O GENERALIZED HEADACHE, REPOSITIONED IN BED, MED GIVEN PER MAR, VSS, WILL CONTINUE TO MONITOR
[2019-10-17 01:47] LABS: POTASSIUM - SERUM 3.4 mmol/L (3.5-5.1)
[2019-10-17 05:40] LABS: ALBUMIN 2.4 g/dL (3.4-5.0); BILIRUBIN - TOTAL 1.28 mg/dL (0.2-1.3); CALCIUM 8.1 mg/dL (8.5-10.1); CARBON DIOXIDE 33.7 mmol/L (21.0-32.0); CREATININE - SERUM 0.8 mg/dL (0.6-1.3); PHOSPHOROUS 3.3 mg/dL (2.5-4.9); PROTEIN - SERUM 5.8 g/dL (6.4-8.2)
[2019-10-17 05:43] LABS: ANION GAP 7.3 mmol/L (8-16); MAGNESIUM - SERUM 2.2 mg/dL (1.8-2.4)
[2019-10-17 05:53] LABS: BASOPHILS 0.1 % (0-2); EOSINOPHILS 1.4 % (0-7); HEMATOCRIT 35.9 % (36.0-48.0); HEMOGLOBIN 11.6 g/dL (12-16); IMMATURE GRANULOCYTES 1.8 % (0-5); MCH 29.3 pg (26.0-34.0); MCHC 32.3 g/dL (31.0-37.0); MCV 90.7 fL (80.0-100.0); MEAN PLATELET VOLUME 9.9 fL (7.4-10.4); MONOCYTES 9.8 % (2-11); NEUTROPHILS 74.9 % (40-80); RBC 3.96 10x6/uL (4.00-5.40); RDW 16.6 % (11.5-14.5); WBC 16.1 10x3/uL (4.8-10.8)
[2019-10-17 05:54] LABS: PLATELET COUNT 388 10x3/uL (130-400)
--- NOTE | 2019-10-17 07:00 | NUR ---
RECEIVED BEDSIDE REPORT ON PATIENT AND ASSUMED CARE. PATIENT IN BED, VSS. RIGHT IJ CVL INFUSING NS AT 20 ML/HR (TKO), CVP LEVELED AND ZEROED - 3. BBS - CLEAR BUT DIMINISHED. VOICE REALLY LOW AND SOFT, STATES NOT ABLE TO COUGH UP ANYTHING. CM - SR RATE 94 WITH PACS NOTED. RICKS CATH WITH CLEAR YELLOW UOP NOTED. HEAD TO TOE ASSESSMENT COMPLETED.
--- NOTE | 2019-10-17 09:10 | NUR ---
PATIENT UP TO BEDSIDE CHAIR WITH PT. VSS.
--- NOTE | 2019-10-17 11:06 | NUR ---
REASSESSMENT COMPLETED, VSS. CVP ZEROED AND LEVELED - 2. CVL DRESSING CHANGED AFTER COMING LOOSE DUE TO PATIENT PULLING ON IT.
--- NOTE | 2019-10-17 11:52 | NUR ---
DR. HAMILTON AT ROOM UPDATED AND EXAMINES PATIENT. TO PLACE PATIENT ON LOW RESISTANCE INSULIN SLIDING SCALE AC/HS. WILL RESTART LING ACTING ONCE PATIENT IS EATING CONSISTENT.
--- NOTE | 2019-10-17 13:24 | NUR ---
DR. LUNA AND DR. MORALES AT ROOM UPDATED NAD EXAMINE PATIENT. VSS.
--- NOTE | 2019-10-17 13:47 | NUR ---
PATIENTS BROTHER TOOK PATIENTS CELL PHONE AND CHARGING CORD HOME PER PATIENT REQUEST.
--- NOTE | 2019-10-17 15:04 | NUR ---
REASSESSMENT COMPLETED. VSS. CVP LEVELED AND ZEREOED.
--- NOTE | 2019-10-17 15:50 | NUR ---
CONTACTED DR. MORALES PER DR. LUNA REGARDING OK TO SWITCH PATIENT FROM 125 MG SOLUMEDROL DAILY TO [address] MORALES OK TO CHANGE THE MEDICATION. DR. LUNA NOTIFIED.
--- NOTE | 2019-10-17 19:00 | NUR ---
REPORT RECEIVED, SHIFT ASSESSMENT COMPLLETE PER FLOW SHEET, PT AWAKE AND ALERT SITTING IN BEDSIDE CHAIR, PT DENIES PAIN AT THIS TIME, PT VOICED QUESTIONS REGAURDING TRANSFERRING TO REHAB AND WHAT TO EXPECT, QUESTIONS/CONCERNS ANSWERED WILL NOTIFY CASE MANAGEMENT TO DISCUSS FURTHER NEEDED, RT IJ CVL INFUSING MEDS PER ORDERS/MAR DRSG C/D/I, RIGHT GROIN/THIGH INCISION SITE DRSG'S C/D/I, BRUISING NOTED TO RT GROIN/THIGH/FLANK AREA, ARIES DRAIN COMPRESSED WITH BLOODY FLUID IN BULB, RICKS CATH TO GRAVITY BAG WITH CLEAR YELLOW URINE, DAFNE HOSE AND SCD'S ON BLE, VSS, CALL LIGHT IN REACH, FALL TEACHING REVIEWED, WILL CONTINUE TO MONITOR
--- NOTE | 2019-10-17 19:59 | MORECARE ---
CASE MANAGEMENT DISCHARGE SUMMARY PATIENT: YONAS CARDONA UNIT: [id number] ADM DATE: 10/09/19 AGE: 74 : 49 SEX: F ROOM/BED: [facility] AUTHOR: KAYCE,DOC PHYSICIAN: REFERRING PHYSICIAN: LUIS VELASQUEZ MD DATE OF SERVICE: 10/17/19 Discharge Plan Patient Name: YONAS CARDONA Facility: [facility]:[place] : 1945 Planned Disposition: Anticipated Discharge Date: Discharge Date: Expected LOS: Initial Reviewer: [email or web address] Initial Review Date: 10/14/2019 Generated: 10/17/19 8:58 pm Comments DCP- Discharge Planning Updated by [email or web address]: Aisha Peñar on 10/17/19 6:[address] CM spoke with patient regarding Inpatient Rehab upon discharge to help build strength before going home alone. She stated that she would need to talk to her brother first. CM will come back in am and check with patient once she has been able to discuss this with her brother. CM will continue to follow and assist as needed with discharge planning / needs. DCP- Discharge Planning Updated by [email or web address]: Jessica Barron on 10/14/19 1:[address] Patient Name: YONAS CARDONA Admission Status: ER Accout number: [id number] Admission Date: 10-09-2019 : 1945 Admission Diagnosis: Attending: LUIS VELASQUEZ Current LOS: 5 Anticipated DC Date: Planned Disposition: Primary Insurance: [facility] Discharge Planning Comments: CM SPOKE WITH PATIENT'S EMERGENY CONTACT, AWILDA MAYES-BROTHER, AT [phone]. HE STATES HE LIVES NEXT DOOR TO HER AND SHE LIVES ALONE. STATES A NURSE CAME OUT OCCASIONALLY TO SEE HER BUT DOESN'T KNOW WHO. UNSURE OF NEEDS AT THIS MOMENT. SHE IS STILL ON THE VENT. BROTHER STATES HE WOULD LIKE TO BE CALLED WHEN SHE IS AWAKE. ALSO STATES SHE DOES HAVE A DAUGHTER IN ANOTHER STATE, [place] [phone]. CM TO FOLLOW AND ASSIST. I ANTICIPATE HH VS REHAB VS SNF. Lock Expert: Jessica Barron DCPIA - Discharge Planning Initial Assessment Updated by [email or web address]: Jessica Barron on 10/14/19 2:14 pm * Is the patient Alert and Oriented? No * Preadmission Environment Home Alone * ADLs Independent * Other Equipment CANE, WALKER * Additional services required to return to the preadmission environment? Yes Last DP export: 10/14/19 1:27 p Patient Name: YONAS CARDONA Page [phone] at 195 All edits/amendments must be made on the electronic document DICTATION DATE: 10/17/191957 VP OF MARKETING: CHILANGO 10/17/191957 RPT#: [id number] DC DATE: STATUS: ADM IN [facility] [address] [place] [address] END OF REPORT
--- NOTE | 2019-10-17 21:00 | NUR ---
PT ASSISTED BACK TO BED BY RN x2, PT HAS WEAK GAIT AND NEEDED MUCH ASSISTANCE IN STANDING, PT EASILY TIRED FROM MOVEMENT OUT OF [place] TO BED ROUGHLY 2FT DISTANCE, COMPLETE LINEN CHANGE, REPOSITIONED PT IN BED FOR COMFORT, ARIES DRAIN EMPTIED AND RECOMPRESSED, CVP LINE ZEROED, LARGE CUP ICE WATER GIVEN PER REQUEST NO DIFFICULTY SWALLOWING FLUIDS, I/S COMPLETED [id number] FLUDDER AND TCDB DONE, DAFNE LEE AND SCD'S ON BLE, CALL LIGHT IN REACH, BED ALARM ON, PT ON AIR OVERLAY BED, VSS, SCHEDULED MEDS GIVEN PER OCT/ORDERS, WILL CONTINUE TO MONITOR
--- NOTE | 2019-10-17 22:22 | NUR ---
RIGHT THIGH/GROIN INCISION AND ARIES SITE DRSG CHANGED, SITE CLEANED AND IODINE USED, 4x4 GAUZE PLACED AND SECURED WITH TAPE DRSG OVER ALL SITES, ARIES DRAIN COMPRESSED, NO S/S OF DISTRESS OR BLEED NOTED PT AWAKE AND TALKING WITH NURSE THROUGHOUT DRSG CHANGE, DENIES PAIN, REPOSITIONED IN BED FOR COMFORT, VSS, WILL CONTINUE TO MONITOR
--- NOTE | 2019-10-17 23:00 | NUR ---
REASSESSMENT COMPLETE, NO ACUTE CHANGES FROM PRIOR ASSSESSMENT, PT AWAKE AND ALERT SITTING UP IN BED CALM TALKING WITH DAUGHTER ON PHONE, DENIES PAIN OR NEEDS AT THIS TIME, ALL DRSG'S C/D/I, PT COUGHING THICK MUCOUS USING YONKER SUCTION TO CLEAR FROM MOUTH, NO S/S OF ACUTE DISTRESS NOTED, I/S COMPLETED [id number], FLUDDER AND TCDB DONE, VSS, CALL LIGHT IN REACH, BED ALARM ON, CUP ICE WATER GIVEN PER REQUEST, WILL CONTINUE TO MONITOR
[2019-10-18] VITALS (31 sets, daily range): BP systolic 94–141; BP diastolic 45–68
--- NOTE | 2019-10-18 | NUR ---
PT FREQUENTLY COUGHING AND ATTEMPTING TO CLEAR MUCOUS WITH MINIMAL SPUTUM PRODUCTION, FREQUENT USE OF I/S 1250ML-1500ML WITH EACH USE, TCDB AND FLUDDER DEVICE DONE, REPOSITIONED PT UP IN BED WITH HOB ELEVATED 30-50 DEGREES, SPO2 94-96% ON 4L/MIN NC, OTHER VSS, WILL CONTINUE TO MONITOR
--- NOTE | 2019-10-18 00:45 | NUR ---
PT VOICED CONCERNS ABOUT DAUGHTERS FINANCIAL SITUATION, PT ASKED RN "HELP ME GET HER MONEY" RN QUICKLY INFORMED PT THAT WILL NOT BE POSSSIBLE D/T CONFLICTS OF CARE AND POSITION IT PLACES NURSE IN LEGALLY, INFORMED PT THAT RN CAN HAVE CASE MANAGEMENT OR OTHER TO COME TALK WITH PT DURING THE DAY TO DISCUSS SITUATION, PT STATED " I WOULD LIKE THAT", NO FURTHER AT THIS TIME WILL CONTINUE TO ASSESS AND POC
--- NOTE | 2019-10-18 01:15 | NUR ---
PT CONTINUES TO HAVE WET SOUNDING COUGH WITH MINIMAL MUCOUSE PRODUCED, PT SPO2% DECREASING TO 94% ON 4L/MIN NC, I/S USED FREQUENTLY 1000ML-1500ML WITH EACH USE, FLUDDER AND TCDB DONE, REPOSITIONED UP IN BED WITH HOB ELEVATED, PT APEARS WEAK AND EXAHSTED WITHOUT REST TONIGHT, CONTACTED REPIRATORY THERAPIST GRAY AND NOTIFIED OF PT SITUATION AND DISCUSSED PLACING PT ON BIPAP, RESPIRATORY THERAPIST STATED SHE WILL BRING BIPAP TO ROOM
--- NOTE | 2019-10-18 01:30 | NUR ---
REPIRATOPRY THERAPIST AT BEDSIDE, TEACHING PROVIDED TO PT ON BIPAP USE, PT PLACED ON BIPAP /6 @ 40% FIO2, PT TOLLERATING WELL CALM AND COOPERATIVE, SPO2 98% RR16 ON BIPAP, OTHER VSS, NSR WITH FREQUENT PAC'S NOTED ON CM, BLOOD DRAWN FROM CVL AND SENT TO LAB FOR MAG AND K+ SERUM LEVELS CHECK, WILL CONTINUE TO MONITOR
--- NOTE | 2019-10-18 02:30 | NUR ---
PT RESTING COMFORTABLY WITH EYES CLOSED, PT TOLLERATING BIPAP WITH NO S/S OF ACUTE DISTRESS, VSS, CALL LIGHT IN REACH, WILL CONTINUE TO MONITOR
[2019-10-18 02:31] LABS: MAGNESIUM - SERUM 1.9 mg/dL (1.8-2.4); POTASSIUM - SERUM 4.2 mmol/L (3.5-5.1)
--- NOTE | 2019-10-18 04:12 | NUR ---
CALL LIGHT PRESSED, BIPAP REMOVED, PLACED ON 4L/MIN NC, PT C/O GENERALIZED HEADACHE, MEDS GIVEN PER OCT/ORDERS, VSS, WILL CONTINUE TO MONITOR
--- NOTE | 2019-10-18 04:30 | NUR ---
PT REQUESTED CHECK OF FSBG " I FEEL LIKE MY BLOOD SUGAR IS HIGH, LIKE IN THE 500'S", FSBG CHECKED PER REQUEST 155 mg/dL, PT ALSO VOICED CONCERNS ABOUT NOT GETTING "SLEEP MEDICATION I TAKE AT HOME, XANEX.", WILL NOTIFY DAY SHIFT RN TO DISCUSS CONVERNS WITH PHYSICIANS, VSS, NO FURTHER AT THIS TIME, WILL CONTINUE TO MONITOR
--- NOTE | 2019-10-18 05:25 | NUR ---
PT PRESSED CALL LIGHT, CONFUSION WITH WHAT SHE WANTED, CALL LIGHT/ YONKER SUCTION IN PT HAND, PT APPEARS EXHAUSTED LEANING TO LEFT SIDE AND WEAK, PT COUGH SOUNDS WET WITH FREQUENT SUCTIONING, ON 4L/MIN NC SPO2 97%, OTHER VSS, PT REFUSES BIPAP, REPOSITIONED FOR COMFORT, ELEVATED HOB, I/S COMPLETED [id number], TCDB DONE, WILL CONTINUE TO MONITOR
[2019-10-18 06:42] LABS: ANION GAP 7.5 mmol/L (8-16); CALCIUM 8.4 mg/dL (8.5-10.1); CARBON DIOXIDE 32.7 mmol/L (21.0-32.0); MAGNESIUM - SERUM 1.8 mg/dL (1.8-2.4); PHOSPHOROUS 3.5 mg/dL (2.5-4.9); POTASSIUM - SERUM 4.2 mmol/L (3.5-5.1)
[2019-10-18 06:56] LABS: BASOPHILS 0.1 % (0-2); EOSINOPHILS 0.2 % (0-7); HEMOGLOBIN 11.6 g/dL (12-16); IMMATURE GRANULOCYTES 0.9 % (0-5); LYMPHOCYTES 9.4 % (15-50); MCH 29.1 pg (26.0-34.0); MCHC 32.2 g/dL (31.0-37.0); MCV 90.5 fL (80.0-100.0); MEAN PLATELET VOLUME 9.8 fL (7.4-10.4); MONOCYTES 9.7 % (2-11); NEUTROPHILS 79.7 % (40-80); RBC 3.98 10x6/uL (4.00-5.40); RDW 16.4 % (11.5-14.5); WBC 19.8 10x3/uL (4.8-10.8)
[2019-10-18 06:59] LABS: PLATELET COUNT 483 10x3/uL (130-400)
--- NOTE | 2019-10-18 07:00 | NUR ---
RECEIVED BEDSIDE REPORT ON PATIENT AND ASSUMED CARE. PATIENT RESTING QUIETLY, EASILY AROUSED BY VOICE. VSS. CM - SR WITH OCCASSIONAL PAC RATE OF 80. BBS CLEAR AND EQUAL, DIMINISHED IN THE BASES, SPO2 - 96% ON 3 LPM VIA NC. NS INFUSING AT 10 ML PER HOUR VIA RIGHT IJ CVL. RICKS CATH IN PLACE WITH YELLOW, CLEAR UOP NOTED. PATIENT TURNED AND REPOSITIONED IN BED. HEAD TO TOE ASSESSMENT COMPLETED.
--- NOTE | 2019-10-18 08:20 | NUR ---
PATIENT UP TO BEDSIDE CHAIR BY PT. ANN MARIES.
--- NOTE | 2019-10-18 09:10 | NUR ---
PATIENT RESTING QUIETLY IN CHAIR, VSS. NO NEEDS AT THIS TIME.
--- NOTE | 2019-10-18 11:00 | NUR ---
REASSESSMENT COMPLETED. VSS. CVP ZEROED AND LEVELED.
--- NOTE | 2019-10-18 11:30 | NUR ---
DR. TEMPLETON AT ROOM UPDATED AND EXAMINES PATIENT.
--- NOTE | 2019-10-18 12:00 | NUR ---
DR. LUNA AT ROOM UPDATED AND EXAMINES PATIENT.
--- NOTE | 2019-10-18 13:11 | NUR ---
Nutrition Follow-up: Fair PO intake. [facility] Soft per ST. Says she cannot eat beef, pork, or corn. Noted I/Os (-2287.4 cc on 10/17; -1446.3 cc on 10/16). Last BM 10/07 per chart; active BS x 4. Diet: Diabetic, [facility] Soft PO intake: 50-60% Wt: 241.4# (10/18); 250.2# (10/16); 232.5# (10/09) Labs noted: Glu 117, Mg 1.8 Meds noted: KDur, Humulin, Lasix, Protonix, Mag Sulfate, Zofran -Continue current diet as tolerated. -[place] food preferences within diet restrictions. -Offer Glucerna if avg PO intake <50%. -MD may consider GI motility agent. -Monitor wt. -RD following.
--- NOTE | 2019-10-18 14:38 | NUR ---
PATIENT BACK TO BED PER REQUEST.
--- NOTE | 2019-10-18 15:04 | NUR ---
REASSESSMENT COMPLETED. VSS. CVP LEVELED AND ZEROED.
--- NOTE | 2019-10-18 15:31 | NUR ---
DR. HAMILTON AT ROOM UPDATED AND EXAMINES PATIENT.
--- NOTE | 2019-10-18 19:00 | NUR ---
REPORT RECEIVED. RECEIVED PATIENT IN BED RESTING WITH EYES CLOSED, EASILY ROUSED AND ALERT. ORIENTED X 4. SPEECH SOFT/CLEAR. ASSESSMENT COMPLETED PER FLOW SHEET WITH NO ACUTE DISTRESS OBSERVED. MONITORS CONNECTED TO PATIENT WITH ALARMS SET. VSS. CALL LIGHT IN REACH AND ABLE TO UTILIZE TO MAKE NEEDS KNOWN.
[2019-10-19] VITALS (23 sets, daily range): BP systolic 113–159; BP diastolic 48–78
--- NOTE | 2019-10-19 01:00 | NUR ---
RESTING WITH EYES CLOSED, EASILY ROUSED AND ALERT. VSS
--- NOTE | 2019-10-19 03:00 | NUR ---
REASSESSMENT COMPLETED PER FLOW SHEET WITH NO ACUTE DISTRESS OBSERVED. VSS. CALL LIGHT IN REACH
--- NOTE | 2019-10-19 05:00 | NUR ---
RESTING WITH EYES CLOSED, EASILY ROUSED AND ALERT. VSS. CALL LIGHT IN REACH
[2019-10-19 06:12] LABS: BASOPHILS 0 % (0-2); EOSINOPHILS 0.3 % (0-7); HEMATOCRIT 33.6 % (36.0-48.0); HEMOGLOBIN 10.8 g/dL (12-16); LYMPHOCYTES 9.1 % (15-50); MCH 29.4 pg (26.0-34.0); MCHC 32.1 g/dL (31.0-37.0); MCV 91.6 fL (80.0-100.0); MEAN PLATELET VOLUME 9.5 fL (7.4-10.4); MONOCYTES 7.9 % (2-11); NEUTROPHILS 81.7 % (40-80); PLATELET COUNT 483 10x3/uL (130-400); RBC 3.67 10x6/uL (4.00-5.40); RDW 16.2 % (11.5-14.5); WBC 17.3 10x3/uL (4.8-10.8)
[2019-10-19 06:23] LABS: ANION GAP 7.6 mmol/L (8-16); CALCIUM 8.6 mg/dL (8.5-10.1); CARBON DIOXIDE 32.7 mmol/L (21.0-32.0); CREATININE - SERUM 0.9 mg/dL (0.6-1.3); MAGNESIUM - SERUM 1.8 mg/dL (1.8-2.4); POTASSIUM - SERUM 4.3 mmol/L (3.5-5.1)
--- NOTE | 2019-10-19 07:00 | NUR ---
DRESSING RIGHT GROIN AREA CHANGED. ARIES DRAIN INTACT WITH BLOODY DRAINAGE IN BULB. BULB COMPRESS.ED INCISIONS CLEAN WITH BETADINE. STERILE 4X4 APPLIED. SECURE WITH TAPE PATIENT TOLERATED WELL. UP IN CHAIR AT BEDSIDE WITH ASSISTANCES OF 2 NURSES. PATIENT CAN STAND UP AT BEDSIDE WELL. NEEDED ENCOURAGEMENT TO AMBULATE, BENDS OVERS WHEN WALKING. TOLERATED FAIR.
--- NOTE | 2019-10-19 08:00 | NUR ---
BREAKFAST SERVED AND SET UP. PATIENT FAIR APPETITE.. NO CHOKING OR SWALLOWING PROBLEMS NOTED.
--- NOTE | 2019-10-19 09:00 | NUR ---
COMPLETED BED BATH GIVEN WITH HIBCLENS. SCD AND DAFNE HOSE REMOVED LEGS WASHED. HAIR WASHED. PATIENT TOLERATED WELL. NO DISTRESS. VERY TIRED. CAN LIFT LEFT LEG, DIFFICULTY TO LIFT RIGHT LEG.
--- NOTE | 2019-10-19 10:00 | NUR ---
ON PHONE WITH BROTHER NO DISTRESS
--- NOTE | 2019-10-19 11:55 | NUR ---
LUNCH TRAY SERVED.
--- NOTE | 2019-10-19 13:30 | NUR ---
AMBULATED TO BED WITH WALKER AND PHYSICAL THERAPY. TOLERATED WELL. MUCH IMPROVEMENT IN STANDING AND WALKING. RIJ CENTRAL REMOVED. PATIENT TOLERATED WELL. NO BLEEDING AT SITE FOLDED 4X4 PLACED ON SITE SECURE TEGRADERM. HEAD OF BED ELEVATED 30 DEGREES. FEMALE EXTERNAL CATH PLACED. PERICARE CARE DONE PRIOR TO PLACING.
--- NOTE | 2019-10-19 14:04 | NUR ---
UP IN CHAIR WATCHING TV. NO DISTRESS. RICKS CATH PATENT. PROTONIX GTT AT 8 MG HOUR. NS AT 75 ML HOUR. IV WITHOUT REDNESS OR SWELLING. MONITOR SR
--- NOTE | 2019-10-19 14:55 | NUR ---
rehab prescreen: thank you for this eval, this patient will make a good canidiate for IRF but currently we only have a open bed for a male, so she will be placed on waiting list, sorry for any issuses this may cause. the patient also has no[employer] insurance and will require a prior auth before able to admit ti IRF. we will monitor progress and notify when a bed becomes open. Once again thank you for this eval. clinical liasion
--- NOTE | 2019-10-19 15:00 | NUR ---
NAPPING IN BED NO DISTRESS. RESP DEEP AND REGULAR. REPOSITIONED IN BED
--- NOTE | 2019-10-19 16:58 | NUR ---
UP IN CHAIR AT BEDSIDE. WITH ASSISTANCES OF 2 NURSE AMBULATES SLOWLY. UNSTEADY GAIT NOTED. TOLERATED FAIR. DINNER TRAN SERVED. BROTHER HERE UPDATE GIVEN
--- NOTE | 2019-10-19 18:08 | NUR ---
AMBULATED BACK TO BED WITH ASSISTANCES OF 2 PEOPLE. STILL UNSTEADY GAIT. PATIENT TOLERATED FAIR
--- NOTE | 2019-10-19 19:00 | NUR ---
REPORT RECEIVED. RECEIVED PATIENT IN BED, RESTING WITH EYES CLOSED. ROUSES TO LIGHT TOUCH. ALERT AND ORIENTED X 4. ASSESSMENT COMPLETED PER FLOW SHEET WITH NO ACUTE DISTRESS OBSERVED. MONITORS CONNECTED TO PATIENT WITH ALARMS SET. VSS CALL LIGHT IN REACH AND ABLE TO UTLIZE TO MAKE NEEDS KNOWN.
--- NOTE | 2019-10-19 21:00 | NUR ---
RESTING WITH EYES CLOSED, EASILY ROUSED AND ALERT. VSS. CALL LIGHT IN REACH
--- NOTE | 2019-10-19 23:00 | NUR ---
REASSESSMENT COMPLETED PER FLOW SHEET WITH NO ACUTE DISTRESS OBSERVED. VSS. CALL LIGHT IN REACH
[2019-10-20] VITALS (24 sets, daily range): BP systolic 104–149; BP diastolic 42–87
--- NOTE | 2019-10-20 01:00 | NUR ---
RESTING WITH EYES CLOSED, EASILY ROUSED AND ALERT. VSS
--- NOTE | 2019-10-20 03:00 | NUR ---
REASSESSMENT COMPLETED PER FLOW SHEET WITH NO ACUTE DISTRESS OBSERVED. VSS. CALL LIGHT IN REACH
--- NOTE | 2019-10-20 05:00 | NUR ---
RESTING WITH EYES CLOSED, EASILY ROUSED AND ALERT. VSS
[2019-10-20 06:21] LABS: ANION GAP 6.6 mmol/L (8-16); CALCIUM 8.7 mg/dL (8.5-10.1); CARBON DIOXIDE 32.7 mmol/L (21.0-32.0); POTASSIUM - SERUM 4.3 mmol/L (3.5-5.1)
[2019-10-20 07:13] LABS: BASOPHILS 0.1 % (0-2); EOSINOPHILS 0.5 % (0-7); HEMATOCRIT 35.5 % (36.0-48.0); HEMOGLOBIN 11.2 g/dL (12-16); IMMATURE GRANULOCYTES 0.9 % (0-5); LYMPHOCYTES 12.9 % (15-50); MCH 29.3 pg (26.0-34.0); MCHC 31.5 g/dL (31.0-37.0); MCV 92.9 fL (80.0-100.0); MEAN PLATELET VOLUME 9.7 fL (7.4-10.4); MONOCYTES 8.6 % (2-11); PLATELET COUNT 468 10x3/uL (130-400); RBC 3.82 10x6/uL (4.00-5.40); RDW 16.6 % (11.5-14.5); WBC 16.3 10x3/uL (4.8-10.8)
--- NOTE | 2019-10-20 07:30 | NUR ---
UP IN CHAIR AT BEDSIDE. VERY SLEEPY, AWAKES SLOWLY HARD TO HOLD HER EYES OPEN. SKIN WARM AND DRY. ARIES DRAIN RIGHT THIGH INTACT, DRESSING INTACT. NO DRAINAGE ON DRESSING.
--- NOTE | 2019-10-20 08:10 | NUR ---
BREAKFAST SERVED AND SET UP. PATIENT FEEDING SELF
--- NOTE | 2019-10-20 10:00 | NUR ---
poor food appetite drinking fluids well. sleeping in chair no distress
--- NOTE | 2019-10-20 11:30 | NUR ---
diabetic diet served.
--- NOTE | 2019-10-20 12:15 | NUR ---
drank all her glucerna. couple bites of turkey sandwich
--- NOTE | 2019-10-20 13:54 | NUR ---
ambulated around her bed. hibclens bath given with pericare. right thigh dressing change, incisions and za drain site clean with betadine sterile 4x4 applied secure with tape. patient tolerated well. patient brushed her teeth. good coughing. yankauer suction provided. dark red drainage in za drain. head of bed elevated 30 degrees. nurse call light within hands reach.
--- NOTE | 2019-10-20 18:25 | NUR ---
REPOSITIONED ON LEFT SIDE PILLOWS TO BACK FOR COMFORT. HEELS BRIDGED WITH PILLOW SCD ON LOWER LEGS. STATES SHE IS COMFORTABLY. HEAD OF BED ELEVATED. GOOD COUGH EFFORT. PURE WICK IN PLACE AND WORKING. ARIES DRAIN RIGHT GROIN INTACT. DRESSING DRY AND INTACT.
--- NOTE | 2019-10-20 21:01 | NUR ---
1900 ASSESSMENT DONE SEE FLOW SHEET VSS NO SIGNS OF ACUTE DISTRESS NOTED. 2100 MEDS GIVEN PER MAR. VSS WILL CONITNUE TO MONITOR.
--- NOTE | 2019-10-20 23:00 | NUR ---
REASSESSMENT DONE SEE FLOW SHEET VSS
[2019-10-21] VITALS (24 sets, daily range): BP systolic 85–138; BP diastolic 33–89
--- NOTE | 2019-10-21 01:00 | NUR ---
PT TAKEN OFF BIPAP AT THIS TIME. VSS. WILL CONTINUE TO MONITOR.
--- NOTE | 2019-10-21 03:04 | NUR ---
REASSESSMENT DONE SEE FLOW SHEET VSS
[2019-10-21 04:49] LABS: BASOPHILS 0.1 % (0-2); EOSINOPHILS 0.6 % (0-7); HEMATOCRIT 38.7 % (36.0-48.0); HEMOGLOBIN 12.4 g/dL (12-16); IMMATURE GRANULOCYTES 0.9 % (0-5); LYMPHOCYTES 16.7 % (15-50); MCH 29.3 pg (26.0-34.0); MCV 91.5 fL (80.0-100.0); MEAN PLATELET VOLUME 9.3 fL (7.4-10.4); MONOCYTES 7.2 % (2-11); NEUTROPHILS 74.5 % (40-80); PLATELET COUNT 467 10x3/uL (130-400); RBC 4.23 10x6/uL (4.00-5.40); RDW 16.4 % (11.5-14.5); WBC 15.2 10x3/uL (4.8-10.8)
[2019-10-21 04:57] LABS: ANION GAP 7.6 mmol/L (8-16); CALCIUM 8.6 mg/dL (8.5-10.1); CARBON DIOXIDE 34.3 mmol/L (21.0-32.0); CREATININE - SERUM 1.1 mg/dL (0.6-1.3); POTASSIUM - SERUM 3.9 mmol/L (3.5-5.1)
--- NOTE | 2019-10-21 07:00 | NUR ---
PT REPORT RECEIVED FROM FLAKER TENDER NURSE. NO ACUTE SIGNS OF DISTRESS NOTED. SHIFT ASSESSMENT COMPLETED. WILL CONTINUE TO MONITOR
--- NOTE | 2019-10-21 08:56 | NUR ---
OT NOTE: (DOS 10/18/19) PT COMPLETED BED MOB TASKS WITH MIN-MOD A. PT COMPLETED HAND AND FACE HYGIENE WITH SET UP. [phone] THANK YOU,ROSS LOAIZA
--- NOTE | 2019-10-21 11:00 | NUR ---
PT FAMILY MEMBER CALLED FOR UPDATE. UPDATE GIVEN. WILL CONTINUE TO MONITOR
--- NOTE | 2019-10-21 12:45 | NUR ---
Rehab Note- PreAuth initiated with Ivania/aubrey Meza faxed in at this time for review for possible inpatient acute rehab stay. Will follow at this time. Thank you for this referral! Margaret Ricketts RN [place] Liaison, [facility] Rehab
--- NOTE | 2019-10-21 13:53 | NUR ---
Nutrition Follow-up: Pt reports "just don't have no appetite". Noted Megace started today. Will drink Glucerna. Diet: Diabetic PO intake: 20-30% Wt: 233# (10/21); 241.4# (10/18); 235# (10/10) No BM Labs noted: Glu 134 Meds noted: Lasix, Protonix, Prednisone, KDur, Humulin, Megace -+Glucerna with meals. -Monitor wt. -RD following.
--- NOTE | 2019-10-21 14:59 | OP ---
PATIENT NAME: YONAS CARDONA MEDICAL RECORD: [id number] :49 LOCATION:[id number] ADMISSION DATE:10/09/19 SURGEON: JUDIE TEMPLETON MD DATE OF OPERATION: 10/10/2019 SURGEON: Judie Templeton MD ANESTHESIA: General, Dr. Eduardo. OPERATIONS PERFORMED: 1. Repair of profunda femoral artery primarily. 2. Drainage of hematoma, right thigh. 3. Chest compressions for profound bradycardia and hypotension. PREOPERATIVE DIAGNOSIS: Hematoma, right groin. POSTOPERATIVE DIAGNOSIS: Hematoma, right groin secondary to bleeding from the profunda femoris artery. INDICATION FOR OPERATION: Hematoma, right groin. FINDINGS OF THE OPERATION: 1. Bleeding from the profunda femoral artery. 2. Hematoma, right thigh. The patient after induction and removal of the FemoStop to prep, the patient became hypotensive and bradycardiac. This required chest compressions. During the chest compressions, the groin was opened and hemostasis achieved. The patient's blood pressure improved as well as the heart rate and we were able to continue in a normal manner. DESCRIPTION OF PROCEDURE: After informed consent, adequate preoperative medication evaluation, the patient was brought to the operating room, placed on the table in the supine position. After induction of general endotracheal anesthesia and application of appropriate monitoring devices and placement of a right internal jugular vein, the FemoStop was removed and the right groin prepped and draped in sterile field utilizing Betadine scrub, alcohol, and Betadine solution. Betadine-impregnated drape was also used. The patient became hypotensive and difficult to manage for anesthesia. The patient became hypotensive, bradycardic, required chest compressions to push the drugs through the circulatory system. The timeout had been performed earlier. The incision was made and dissection carried down to the fascia. The hematoma was opened and the blood evacuated. After being able to obtain hemostasis in the deep thigh below muscles, the patient's blood pressure and heart rate improved. With continued pressure on the thigh, fascia, and muscles, the common femoral and superficial femoral artery were dissected free of surrounding structures. The takeoff of the profunda was identified and the bleeding found to be coming from the profunda. The proximal profunda was dissected free and vessel loops placed around the common femoral and profunda femoral artery. Utilizing tension on the vessel loop, the profunda was dissected further. The artery was controlled distally with a forceps. The puncture site was identified and closed utilizing 5-0 Prolene sutures. The tension was released, and the patient had good pulses in the superficial and profunda femoral arteries. The hematoma in the thigh was then evacuated and irrigated with copious amounts of antibiotic solution and normal saline. Hemostasis was achieved. The patient was stabilized and 2 OPERATIVE REPORT [id number] YONAS CARDONA drains were placed, one anteriorly and superiorly, and one laterally and inferiorly. The wound was irrigated. Instrument count and sponge counts were correct times 2. Wound was closed in layers utilizing 2-0 Vicryl on deep subcutaneous tissue, 2-0 Vicryl on the superficial subcutaneous tissue, 4-0 subcuticular Monocryl was used on the skin. Sterile dressings were applied. The patient was stable. A right radial line was then placed and after stabilization, the patient transferred to the ICU in critical, but stable condition. TRANSINT:[id number] Voice Confirmation ID: [id number] DOCUMENT ID: [id number] JUDIE TEMPLETON MD at 1459 CC: [id number] DICTATION DATE: 10/10/19 0915 THREAT ANALYST: 10/10/19 1127 ADM IN [id number] [place] [address]
--- NOTE | 2019-10-21 16:27 | NUR ---
PT BLOOD SUGAR CHECKED. 432. RECHECKED 404. CALLED DR VELASQUEZ. ORDERS RECEIVED TO SWITCH HER FROM A LOW RESISTANCE SLIDING SCALE TO HIGH RESISTANCE.
--- NOTE | 2019-10-21 18:19 | NUR ---
OT NOTE: PT COMPLETED SITTING BALANCE WITH MIN A. PT COMPLETED SIT TO STAND WITH MIN/MOD A. PT COMPLETED FACE HYGIENE TASKS WITH SET UP. PT STATED SHE IS VERY TIRED AND HAVING HARD TIME ANSWERING QUESTIONS. NURSING NOTIFIED. NURSING STATED HOLD OFF ON ADL MOBILITY. NURSING STATED SIT TO STAND WERE FINE. [phone] THANK YOU,ROSS LOAIZA
--- NOTE | 2019-10-21 19:15 | NUR ---
RECIVED SHIFT REPORT AT BEDSIDE. PT IS A&OX4 HOWEVER SLEEPY. DAY TIME NURSE VOICED SHE DIDNT SLEEP WELL THE NIGHT BEFORE DUE TO HER BIPAP AND HAS BEEN SLEEP ALL DAY LONG. I ASKED PT IF SHE IS SLEEP OR IN ANY PAIN. SHE VOICED"I AM SLEEP, I DONT REALLY HURT RIGHT NOW". VITAL SIGNS ARE STABLE. SHE IS USING HER INCENTIVE SPIROMITOR AT THIS TIME CORRECTLY. NOTED PURE WICK HOOKED TO SUCTION AND WORKING. WILL PERFORM FULL ASSESSMENT AND DOCUMENT. BED IS LOW,SIDE RAILSX2, CALL LIGHT WIHTIN REACH. WILL CONTINUE TO MONITOR
--- NOTE | 2019-10-21 21:14 | NUR ---
PT IS AWAKE AND ASK IF SHE CAN HAVE SOME COFFEE. I MADE A POT FOR HER AND NUHA HER SOME. SHE VOICED"THIS TASTE GOOD, IT MAKES ME WARM". I ALSO TURNED PT ONTO HER LEFT SIDE AT THIS TIME AND MADE SURE THAT ALL LINES WHERE FREE FROM PT SKIN. PURE WICK IS IN PLACE. WHEN TURNING AND POSITIONING I NOTICED THAT THERE IS A SMALL FISSUE LIKE SORE IN THE RIGHT GROIN AREA THAT IS YELLOW IN COLOR. NO SMELL IS NOTED. I TOOK OFF PT BRIEF FOR THE NIGHT TO ALLOW TO AIR DRY. VITAL SIGNS REMAIN STABLE. TURNED LIGHT OFF PER REQUEST. BED IS LOW,SIDE RAILSX,CALL LIGHT WITHIN REACH. WILL CONINTUE TO MONITOR
[2019-10-22] VITALS (20 sets, daily range): BP systolic 100–135; BP diastolic 46–73
--- NOTE | 2019-10-22 00:14 | NUR ---
PT IS RESTING IN BED WITH EYES CLOSED, VITAL SIGNS ARE STABLE. BED IS LOW,SIDE RAILSX2,CALL LIGHT WITHIN REACH.WILL CONINTUE TO MONITOR
--- NOTE | 2019-10-22 02:00 | NUR ---
PT IS RESTING IN BED WITH EYES CLOSED. VITAL SIGNS ARE STABLE. BED IS LOW,SIDE RAILSX2,CALL LIGTH WITHIN REACH. WILL CONTINUE TO MONITOR
--- NOTE | 2019-10-22 04:55 | NUR ---
PT IS RESTING IN BED WITH EYES CLOSED. PERFOMRED ADLS. SEE CHARTING. VITAL SIGNS ARE STABLE. PT TOLERATED WELL. BED IS LOW,SIDE RAILSX2,CALL LIGHT WITHIN REACH. WILL CONTINUE TO MONITOR
--- NOTE | 2019-10-22 06:14 | NUR ---
PT IS RESTING IN BED. JUST GAVE 0700 MEDS. BS WAS 88 SO NO INSULIN NEEDED. PT VOICED NO C/O. VITAL ARE STABLE. BED IS LOW,SIDE RAILSX2,CALL LIGTH WITHIN REACH. WILL CONTINUE TO MONITOR
[2019-10-22 11:04] LABS: BASOPHILS 0.1 % (0-2); EOSINOPHILS 0.7 % (0-7); HEMATOCRIT 38.5 % (36.0-48.0); HEMOGLOBIN 12.6 g/dL (12-16); LYMPHOCYTES 12.7 % (15-50); MCH 29.9 pg (26.0-34.0); MCHC 32.7 g/dL (31.0-37.0); MCV 91.2 fL (80.0-100.0); MEAN PLATELET VOLUME 9.5 fL (7.4-10.4); MONOCYTES 5.9 % (2-11); NEUTROPHILS 79.6 % (40-80); PLATELET COUNT 456 10x3/uL (130-400); RBC 4.22 10x6/uL (4.00-5.40); RDW 16.5 % (11.5-14.5)
[2019-10-22 11:06] LABS: WBC 19.7 10x3/uL (4.8-10.8)
[2019-10-22 11:11] LABS: ANION GAP 12.1 mmol/L (8-16); CALCIUM 8.6 mg/dL (8.5-10.1); CARBON DIOXIDE 30.7 mmol/L (21.0-32.0); CREATININE - SERUM 1.2 mg/dL (0.6-1.3); POTASSIUM - SERUM 3.8 mmol/L (3.5-5.1)
--- NOTE | 2019-10-22 12:17 | NUR ---
MEAL TRAY DELIVERED AND SET UP. PT RATES PAIN 8/10. ULTRAM GIVEN FOR PAIN. WILL CONTINUE TO MONITOR.
--- NOTE | 2019-10-22 13:37 | NUR ---
OT NOTE: PT VERY LETHARGIC TODAY. SPEECH WAS LOW AND PT HAD DIFFICULTY KEEPING EYES OPEN. ASSISTED TO EOB WITH MIN/MOD ASSIST. GOOD STATIC SITTING BALANCE. AMB TO BATHROOM WITH MIN ASSIST, GAIT BELT, AND WALKER. TOILET TRANSFER WITH MIN ASSIST; MOD/MAX ASSSIST WITH HYGIENE; ABLE TO PERFORM GROOMING TASKS WITH SET UP..SOB AND WHEEZING NOTED THROUGHOUT TMT SESSION. ELVIN ZAYAS, OTR/L [phone]
--- NOTE | 2019-10-22 15:15 | NUR ---
Rehab Note- Spoke with Pinky at [facility]/[place] & the patient's case is still pending in PreAuth process. Will continue to await for determination of possible inpatient acute rehab stay. Thank you for this referral! Margaret Ricketts RN Clinical Liaison, [facility] Rehab
--- NOTE | 2019-10-22 18:13 | NUR ---
PT ATE DINNER, TOLERATED WELL, ASSISTED BACK TO BED BY PT
--- NOTE | 2019-10-22 19:00 | NUR ---
SHIFT ASSESSMENT COMPLETED. PT CARE ASSUMED, MONITORS ON AND WORKING, VITALS STABLE, CALL LIGHT WITHIN REACH, SEE FLOW SHEET FOR FURTHER DETAILS. WILL CONTINUE TO OBSERVE.
[2019-10-23] VITALS (9 sets, daily range): BP systolic 113–158; BP diastolic 48–69
[2019-10-23 06:52] LABS: BASOPHILS 0.1 % (0-2); EOSINOPHILS 0.6 % (0-7); HEMATOCRIT 36.7 % (36.0-48.0); HEMOGLOBIN 11.8 g/dL (12-16); IMMATURE GRANULOCYTES 0.7 % (0-5); LYMPHOCYTES 15.7 % (15-50); MCH 29.6 pg (26.0-34.0); MCHC 32.2 g/dL (31.0-37.0); MEAN PLATELET VOLUME 9.4 fL (7.4-10.4); MONOCYTES 5.3 % (2-11); NEUTROPHILS 77.6 % (40-80); PLATELET COUNT 461 10x3/uL (130-400); RBC 3.99 10x6/uL (4.00-5.40); RDW 16.5 % (11.5-14.5); WBC 16.7 10x3/uL (4.8-10.8)
[2019-10-23 07:03] LABS: ANION GAP 9.8 mmol/L (8-16); CALCIUM 8.5 mg/dL (8.5-10.1); CARBON DIOXIDE 31.4 mmol/L (21.0-32.0); CREATININE - SERUM 0.9 mg/dL (0.6-1.3)
[2019-10-23 07:05] LABS: POTASSIUM - SERUM 3.2 mmol/L (3.5-5.1)
--- NOTE | 2019-10-23 08:00 | NUR ---
OOB TO CHAIR WITH ASSISTANCE. GIVEN BREAKFAST TRAY. EATS INDEPENDENTLY.
--- NOTE | 2019-10-23 13:20 | NUR ---
Nutrition Follow-up: Appeared lethargic at time of visit this AM. Overall not eating well. Reports drinking 1 Glucerna yesterday. Diet downgraded per ST yesterday. Noted plans to d/c to rehab. Diet: Diabetic, Mech Soft with Ground Meat, Glucerna TID PO intake: 33% avg x 6 meals Wt: 236# (10/22); 233# (10/21); 230# (10/09) Last BM: "3 days ago" per pt Labs noted: K+ 3.2, Glu 173 Meds noted: Humulin, Megace, Lasix, Protonix, Prednisone -Continue current diet as tolerated with consistencies per ST. -Encourage PO intake. -Monitor wt. -RD following.
--- NOTE | 2019-10-23 15:11 | NUR ---
Recieved a fax from Betsy at [facility]. This patient is approved for the acute rehab 7 days with clinical updates due on 10/31/19. Auth # [id number] sHE WILL BE ACCEPTED TODAY 10/23/19. iNFORMED THE cm Marshall Montanez rn. Mesha Khan rn cLINICAL lIAISON, rEHAB
--- NOTE | 2019-10-23 18:24 | MORECARE ---
CASE MANAGEMENT DISCHARGE SUMMARY PATIENT: OYNAS CARDONA UNIT: [id number] ADM DATE: 10/09/19 AGE: 74 : 47 SEX: F [facility] AUTHOR: KAYCE,DOC PHYSICIAN: REFERRING PHYSICIAN: LUIS VELASQUEZ MD DATE OF SERVICE: 10/23/19 Discharge Plan Patient Name: YONAS CARDONA Facility: [facility]:[place] : 1945 Planned Disposition: Anticipated Discharge Date: Discharge Date: 10/23/2019 Expected LOS: Initial Reviewer: [email or web address] Initial Review Date: 10/14/2019 Generated: 10/23/19 7:23 pm DCP- Discharge Planning Updated by [id number]: Aisha Swift on 10/17/19 6:[address] CM spoke with patient regarding Inpatient Rehab upon discharge to help build strength before going home alone. She stated that she would need to talk to her brother first. CM will come back in am and check with patient once she has been able to discuss this with her brother. CM will continue to follow and assist as needed with discharge planning / needs. DCP- Discharge Planning Updated by [id number]: Jessica Barron on 10/14/19 1:[address] Patient Name: YONAS CARDONA Admission Status: ER Accout number: [id number] Admission Date: 10-09-2019 : 1945 Admission Diagnosis: Attending: LUIS VELASQUEZ Current LOS: 5 Anticipated DC Date: Planned Disposition: Primary [facility] Discharge Planning Comments: CM SPOKE WITH PATIENT'S EMERGENY CONTACT, AWILDA MAYES-BROTHER, AT [phone]. HE STATES HE LIVES NEXT DOOR TO HER AND SHE LIVES ALONE. STATES A NURSE CAME OUT OCCASIONALLY TO SEE HER BUT DOESN'T KNOW WHO. UNSURE OF NEEDS AT THIS MOMENT. SHE IS STILL ON THE VENT. BROTHER STATES HE WOULD LIKE TO BE CALLED WHEN SHE IS AWAKE. ALSO STATES SHE DOES HAVE A DAUGHTER IN ANOTHER STATE, [place] [phone]. CM TO FOLLOW AND ASSIST. I ANTICIPATE HH VS REHAB VS SNF. Statistical Machine Servicer: Jessica Barron DCPIA - Discharge Planning Initial Assessment Updated by [id number]: Jessica Barron on 10/14/19 2:14 pm * Is the patient Alert and Oriented? No * Preadmission Environment Home Alone * ADLs Independent * Other Equipment CANE, WALKER * Additional services required to return to the preadmission environment? Yes Coverage Notice Reviewer: [email or web address] Richard Swift Notice Issued Date-Time: 10/18/2019 15:26 Notice Type: Patient Choice Letter Notice Delivered To: Patient Relationship to Patient: Self Strip Polisher Name: Delivery Method: HAND - Hand Delivered Rose Days: Prior Verbal Notification: Recipient Understood Notice: Yes Recipient Signature: Yes Med Rec Note Co-signed by Attending: Coverage Notice Comment: INPATIENT REHAB [facility] Reviewer: [email or web address] Richard Swift Notice Issued Date-Time: 10/23/2019 15:30 Notice Type: IM Discharge Notice Notice Delivered To: Patient Relationship to Patient: Self Strip Polisher Name: Delivery Method: HAND - Hand Delivered Rose Days: Prior Verbal Notification: Recipient Understood Notice: Yes Recipient Signature: Yes Med Rec Note Co-signed by Attending: Coverage Notice Comment: Last DP export: 10/17/19 6:59 p Patient Name: YONAS CARDONA Page [id number] at 1824 All edits/amendments must be made on the electronic document DICTATION DATE: 10/23/191822 CERTIFIED SURGICAL TECH/FIRST ASSISTANT: CHILANGO 10/23/191822 RPT#: [id number] DC DATE:10/23/19 STATUS: DIS IN [place] [id number] [place] [address] END OF REPORT
== END 2019-10-23 16:45 | DRG 252 ==
LOC: D.ER 17:27 → D.CVICU 18:49 → D.ICU 18:49 → D.CVICU 10-10 10:45
PROVIDERS: Emergency Medicine; Family Medicine; Internal Medicine Cardiovascular Disease; Internal Medicine Pulmonary Disease; Thoracic Surgery (Cardiothoracic Vascular Surgery); ADMIT Internal Medicine Nephrology; ATTEND Internal Medicine Nephrology
PROC: 04CK0ZZ Extirpation of Matter from Right Femoral Artery, Open Approach (ICD-10-PCS; principal; 2019-10-09)
PROC: 04QK0ZZ Repair Right Femoral Artery, Open Approach (ICD-10-PCS; 2019-10-09)
PROC: 5A1955Z Respiratory Ventilation, Greater than 96 Consecutive Hours (ICD-10-PCS; 2019-10-10)
PROC: 0BH17EZ Insertion of Endotracheal Airway into Trachea, Via Natural or Artificial Opening (ICD-10-PCS; 2019-10-10)
PROC: 04CL0ZZ Extirpation of Matter from Left Femoral Artery, Open Approach (ICD-10-PCS; 2019-10-11)
DX: I72.4 Aneurysm of artery of lower extremity (principal); J96.01 Acute respiratory failure with hypoxia; N17.0 Acute kidney failure with tubular necrosis; J81.0 Acute pulmonary edema; E87.1 Hypo-osmolality and hyponatremia; D62 Acute posthemorrhagic anemia; I97.711 Intraoperative cardiac arrest during other surgery; J98.11 Atelectasis; I25.10 Atherosclerotic heart disease of native coronary artery without angina pectoris; E11.65 Type 2 diabetes mellitus with hyperglycemia; I10 Essential (primary) hypertension; I95.9 Hypotension, unspecified; E66.9 Obesity, unspecified; M06.9 Rheumatoid arthritis, unspecified; R53.81 Other malaise

== ENCOUNTER 2019-10-23 15:30 | Inpatient (IN) | payer MEDICARE ==
[~2019-10-23] VITALS: Ht 167.6 cm; Wt 107.0 kg
[~2019-10-23 15:30] MED LIST changes: +CLARITIN 10 MG10 MG PO; +CYMBALTA30 MG PO; +CYMBALTA60 MG PO; +FOLBIC RF TABL1 EACH PO; +MACROBID100 MG PO; +PEPCID AC20 MG PO; +PREDNISONE5 MG PO; +STERAPRED DS 1010 MG PO; +TREXALL10 MG PO; +VOLTAREN25 MG PO
--- NOTE | 2019-10-23 19:28 | NUR ---
PT LYING IN BED WATCHING TV. CL IN REACH. DENIES NEEDS OR PAIN AT THIS TIME. STUDENT NURSE PERFORMED ORAL CARE. BED IN LOW SIDE RAILS X2. LUNGS CLEAR. BOWEL ACTIVE X4. A/O X4. WILL CONTINUE TO MONITOR. ARIES DRAIN INTACT.
[2019-10-23 22:06] VITALS: BP 135/65
[2019-10-23 22:11] VITALS: BP 135/65; BMI 38.1
--- NOTE | 2019-10-24 01:00 | NUR ---
I have reviewed this patient and I concur with the Shift Assessment completed by the Licensed Practical Nurse today this shift.
[2019-10-24 06:04] LABS: BASOPHILS 0.1 % (0-2); EOSINOPHILS 0.5 % (0-7); HEMATOCRIT 35.5 % (36.0-48.0); HEMOGLOBIN 11.1 g/dL (12-16); IMMATURE GRANULOCYTES 0.6 % (0-5); LYMPHOCYTES 12.7 % (15-50); MCH 29.3 pg (26.0-34.0); MCHC 31.3 g/dL (31.0-37.0); MCV 93.7 fL (80.0-100.0); MEAN PLATELET VOLUME 9.5 fL (7.4-10.4); MONOCYTES 5.8 % (2-11); NEUTROPHILS 80.3 % (40-80); PLATELET COUNT 443 10x3/uL (130-400); RBC 3.79 10x6/uL (4.00-5.40); RDW 16.9 % (11.5-14.5); WBC 16.9 10x3/uL (4.8-10.8)
[2019-10-24 07:29] LABS: ANION GAP 7.5 mmol/L (8-16); CALCIUM 8.7 mg/dL (8.5-10.1); CARBON DIOXIDE 30.2 mmol/L (21.0-32.0); CREATININE - SERUM 1.1 mg/dL (0.6-1.3); POTASSIUM - SERUM 3.7 mmol/L (3.5-5.1)
[2019-10-24 08:59] VITALS: BP 116/67
--- NOTE | 2019-10-24 12:00 | NUR ---
I have reviewed this patient and I concur with the Shift Assessment completed by the Licensed Practical Nurse today this shift.
[2019-10-24 14:12] VITALS: Ht 167.6 cm; Wt 107.0 kg
--- NOTE | 2019-10-24 16:32 | NUR ---
PATIENT ADMITTED TO REHAB FROM ACUTE FLOOR. HER PCP IS DR. GALDAMEZ DME AT HOME IS A CANE AND A WALKER. DISCHARGE PLANS ARE FOR PATIENT TO RETURN HOME HER BROTHER LIVES NEXT DOOR. SHE WILL NEED A FOLLOW UP APPOINTMENT WITH DR. MORALES. WILL CONTINUE TO FOLLOW WITH PATIENT.
[2019-10-24 19:00] VITALS: BP 105/49
--- NOTE | 2019-10-24 19:12 | NUR ---
GREETED PATIENT AND INTRODUCED MYSELF HER NURSE. PATIENT IS VERY DROWSY AT THIS TIME, BUT ALERT AND ORIENTATED. O2 AT 2L IN USE VIA NC. RESPIRATIONS EVEN. NO S/S OF DISTRESS. BEDSIDE REPORT COMPLETE FROM OFF GOING NURSE. PT DENIES ANY NEEDS AT THIS TIME. CALL LIGHT IN REACH.
--- NOTE | 2019-10-25 01:40 | NUR ---
PT. AWAKE AND LAYING IN BED. STILL LETHARGIC. O2 AT 2L IN USE VIA NC. RESPIRATIONS EVEN. NO S/S OF DISTRESS. CALL LIGHT IN REACH.
--- NOTE | 2019-10-25 05:27 | NUR ---
PT CLEANED OF INCONTINENT URINE IN BRIEF. PT STATED THAT HER HEAD WAS HURTING. OFFERED PT PRN TRAMADOL, BUT REFUSES TO TAKE.
[2019-10-25 07:24] LABS: BASOPHILS 0.2 % (0-2); EOSINOPHILS 2.4 % (0-7); HEMATOCRIT 35.9 % (36.0-48.0); HEMOGLOBIN 11.1 g/dL (12-16); IMMATURE GRANULOCYTES 0.4 % (0-5); LYMPHOCYTES 14.3 % (15-50); MCH 29.2 pg (26.0-34.0); MCHC 30.9 g/dL (31.0-37.0); MCV 94.5 fL (80.0-100.0); MEAN PLATELET VOLUME 9.4 fL (7.4-10.4); MONOCYTES 6.4 % (2-11); NEUTROPHILS 76.3 % (40-80); PLATELET COUNT 412 10x3/uL (130-400); RDW 17.1 % (11.5-14.5); WBC 12.7 10x3/uL (4.8-10.8)
[2019-10-25 07:36] LABS: ANION GAP 10.6 mmol/L (8-16); CARBON DIOXIDE 33.2 mmol/L (21.0-32.0); POTASSIUM - SERUM 3.8 mmol/L (3.5-5.1)
[2019-10-25 07:39] LABS: CREATININE - SERUM 1.4 mg/dL (0.6-1.3)
--- NOTE | 2019-10-25 08:00 | NUR ---
REFUSED TEAT BREAKFAST. STATES SHE FEELS SICK, WHEN I ASKED IF SHE WAS NAUSEATED, STATED NO IM JUST SICK. DENIES ANY PAIN ALSO.
[2019-10-25 11:25] VITALS: BP 112/58
--- NOTE | 2019-10-25 12:19 | NUR ---
REFUSED TO EAT LUNCH, STATES SHE WILL WHEN SHE IS FEELING BETTER.
[2019-10-25 20:00] VITALS: BP 115/59
--- NOTE | 2019-10-25 20:00 | NUR ---
PATIENT RECEIVED SITTING UP IN BED. ASSESSMENT & VITAL SIGNS DONE. NO C/O PAIN AT THIS TIME. BED LOW. ALARM ON. CALL LIGHT WITHIN REACH. WILL CONTINUE TO MONITOR.
--- NOTE | 2019-10-26 02:46 | NUR ---
PATIENT EYES CLOSED. RESPIRATIONS 18 & EVEN. BED LOW. ALARM ON. CALL LIGHT WITHIN REACH. WILL CONTINUE TO MONITOR.
--- NOTE | 2019-10-26 04:30 | NUR ---
PATIENT INCONTINENT. PATIENT TOILETED & CLEANED. NEW BRIEF & LINENS ON BED. DRESSING CHANGED D/T SEROSANGUANOUS DRAINAGE, DRAIN SITE CLEANED. ARIES DRAINAGE BLOOD COLORED 20 ML. BED LOW. ALARM ON. CALL LIGHT WITHIN REACH.
--- NOTE | 2019-10-26 06:06 | NUR ---
I have reviewed this patient and I concur with the Shift Assessment completed by the Licensed Practical Nurse today this shift.
--- NOTE | 2019-10-26 07:55 | NUR ---
PT RESTING IN BED WITH EYES OPEN CALL LIGHT IN REACH NO PROBLEMS WILL MONITER
--- NOTE | 2019-10-26 16:27 | NUR ---
PT RESTING IN BED WITH EYES CLOSED PT OPENS EYES EASILY BUT CLOSESS EYES QUICKLY SHE SAYS SHE IS TIRED AND WANTS TO GO HOME. NO OTHER PROBLEMS OR CONCERNS WILL MONITER
--- NOTE | 2019-10-26 19:15 | NUR ---
PT SITTING UP IN BED RESTING QUIETLY. CL IN REACH. BED IN LOW SIDE RAILS X2. A/O X4. RESP EVEN AND UNLABORED. ARIES DRAIN INTACT. BOWEL ACTIVE X4. LUNGS WHEEZY EXPIRATORY. O2 PRN AT BEDSIDE. NO DISTRESS NOTED. TUAN CONTINUE TO MONITOR.
[2019-10-26 21:00] VITALS: BP 117/59
--- NOTE | 2019-10-27 01:31 | NUR ---
I have reviewed this patient and I concur with the Shift Assessment completed by the Licensed Practical Nurse today this shift.
[2019-10-27 08:00] VITALS: BP 145/62
--- NOTE | 2019-10-27 10:40 | NUR ---
PATIENT LYING IN BED RESTING AFTER BREAKFAST. DENIES ANY PAIN/DISC. BED ALARM ON. CALL LIGHT WITHIN REACH. VOICES NO NEEDS. WILL CONTINUE WITH PLAN OF CARE
--- NOTE | 2019-10-27 18:50 | NUR ---
BEDSIDE REPORT COMPLETE. PT SITTING UP IN W/C. DENIES ANY NEEDS OR PAIN. ALERT TO SELF ONLY. REORIENTED TO TIME, PLACE, SITUATION. RT AREIS DRAIN COMPRESSED. CL IN REACH. FALL PRECAUTIONS IN PLACE. WILL CONTINUE TO MONITOR
[2019-10-27 20:00] VITALS: BP 119/54
--- NOTE | 2019-10-28 00:08 | NUR ---
PT LYING IN BED ON LEFT SIDE EYES CLOSED RESTING. RR EVEN AND UNLABORED. CL IN REACH
--- NOTE | 2019-10-28 03:10 | NUR ---
INCONTINENCE CARE PROVIDED LARGE BM AND URINE CONTINENCE. PT POSITIONED ON LEFT SIDE RESTING. CL IN REACH
--- NOTE | 2019-10-28 05:49 | NUR ---
INCONTINENCE CARE DONE MED BOWEL AND URINE INCONTINENCY. POSITIONED PT ON RIGHT SIDE. CL IN REACH
--- NOTE | 2019-10-28 06:12 | NUR ---
PT REFUSED FS AND MEDICATION THIS AM.
[2019-10-28 06:41] LABS: BASOPHILS 0.4 % (0-2); EOSINOPHILS 1.3 % (0-7); HEMATOCRIT 36.1 % (36.0-48.0); HEMOGLOBIN 11.3 g/dL (12-16); IMMATURE GRANULOCYTES 0.2 % (0-5); LYMPHOCYTES 19.6 % (15-50); MCH 29.4 pg (26.0-34.0); MCHC 31.3 g/dL (31.0-37.0); MCV 93.8 fL (80.0-100.0); MEAN PLATELET VOLUME 9.8 fL (7.4-10.4); MONOCYTES 7.7 % (2-11); NEUTROPHILS 70.8 % (40-80); PLATELET COUNT 407 10x3/uL (130-400); RBC 3.85 10x6/uL (4.00-5.40); RDW 17.6 % (11.5-14.5); WBC 10.2 10x3/uL (4.8-10.8)
[2019-10-28 06:49] LABS: ANION GAP 11.4 mmol/L (8-16); CALCIUM 8.7 mg/dL (8.5-10.1); CARBON DIOXIDE 29.3 mmol/L (21.0-32.0); CREATININE - SERUM 1.6 mg/dL (0.6-1.3); POTASSIUM - SERUM 3.7 mmol/L (3.5-5.1)
--- NOTE | 2019-10-28 07:15 | NUR ---
RESTING QUIETLY POSITIONED ON BACK. RESP EVEN AND LABORED WITH 02 ON PER N/C AT 2 L/M. SIDERAILS UP X 2, BED IN LOW LOCKED POSITION AND CALL LIGHT WITHIN REACH. NO APPARENT PROBLEMS AT PRESENT TIME.
--- NOTE | 2019-10-28 09:20 | NUR ---
DR. FLAHERTY IN TO SEE PT AND TOLD HER SHE NEEDED TO START EATING AND DOING THERAPY OR SHE WOULD END UP HAVING TO BE SENT TO A CORRECTION AND STATES SHE UNDERSTANDS. STILL REFUSES TO TAKE HER MEDS OR EAT ANY OF HER BREAKFAST. ONLY DRANK 60CC OJ.
[2019-10-28 09:48] VITALS: BP 146/61
--- NOTE | 2019-10-28 09:53 | NUR ---
DR. FLAHERTY NOTIFIED OF PT REFUSING HER MEDICATIONS. NO NEW ORDERS RECEIVED.
--- NOTE | 2019-10-28 12:30 | NUR ---
REFUSED TO EAT ANY OF HER LUNCH. DRANK A FEW SIPS OF TEA AND STATED SHE DID NOT WANT ANY MORE OR ANY FOOD BECAUSE IT DIDN'T SOUND GOOD.
--- NOTE | 2019-10-28 16:47 | RHP ---
PATIENT: YONAS CARDONA MEDICAL RECORD: [id number] ACCOUNT: [id number] LOCATION:[facility] : 49 ADMISSION DATE: 10/23/19 REHABILITATION HISTORY AND PHYSICAL EXAMINATION POST ADMISSION PHYSICIAN EXAMINATION ADMITTING DIAGNOSIS: Critical illness myopathy. HISTORY OF PRESENT ILLNESS: The patient is a 74-year-old female patient, on 10/08/2019, she presented with unstable anginal symptomatology. She was found to have significant disease of her left anterior descending. She had a successful PTCA and stent through a patent vein graft with no further anginal symptoms. She was discharged home on aspirin and Plavix. She returned to the ED that evening complaining of acute onset of pain and swelling to the right groin. She described this as a constant aching type pressure. 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 The patient was seen by Dr. Valero and Dr. Faustin. A FemoStop was placed to the right groin in the ED and she was admitted to ICU. On 10/10/2019, she became lethargic and hypotensive with expanding of this hematoma. She was taken to the OR for repair of the profunda femoral artery primarily. She had some drainage noted during the procedure. The patient became hypotensive, bradycardic. The patient required chest compressions. During the chest compressions, her groin was opened and hemostasis was achieved. She transferred back to the ICU on the ventilator. Pulmonary was consulted for vent management. The patient was placed on Levophed and Fritz-Synephrine. The patient was still having some bleeding, taken back to the OR for a relook and closure of the bleeding source. The patient had a renal consult also. Her pressors were weaned. The patient had acute kidney injury after cardiac arrest secondary to prolonged hemodynamic instability and insufficient flow there. On 10/16/2019, she was extubated. She had been stable off the vent and doing better. She has a ARIES drain in place. Speech therapy evaluated for dysarthria speech and swallowing difficulty post-intubation. She has had no signs of aspiration. Her H&H has been stable. She has received 20 unit of packed cells, 6 units of FFP and 1 unit for replacement platelets. Previously, she was living alone, was independent with ADLs, using a cane p.r.n. She currently had prolonged immobility, progressive generalized weakness, especially in her lower extremities. She has got problems with exercise tolerance. She is very fatigued, has limited flexion and extension of her lower extremities. She has mod to max assist for ADLs, mod to max assist for sit to stand and bed to chair. She is highly motivated and has good family support to return back home. COMORBIDITIES: Include status post cardiac arrest, acute encephalopathy, respiratory failure, atrial fib, acute kidney injury, altered mental status, hyperglycemia, hypoxia, incontinence, leukocytosis, metabolic encephalopathy, obesity, oropharyngeal dysphagia, postop anemia, pulmonary edema, weakness, bradycardia, coronary artery disease, chest pain, debility and diabetes. PAST MEDICAL HISTORY: Significant for diabetes, thyroid problem. She has had a history of hypertension, [place], coronary artery disease, peripheral vascular disease, asthma, pneumonia, acid reflux, diverticulitis, arthritis, osteoporosis. PAST SURGICAL HISTORY: Includes hysterectomy. She has had a gallbladder surgery, appendectomy, coronary artery bypass graft, Achilles heel repair. HISTORY AND PHYSICAL [id number] YONAS CARDONA ALLERGIES: CODEINE. CURRENT MEDICATIONS: Include prednisone, she is on 5 mg q.48 hours; Altace 5 mg daily; Madeline 60 mg b.i.d.; Lantus 20 units daily; furosemide 40 mg daily; folic acid 1 mg daily; Cymbalta 60 mg daily; Plavix 75 mg daily; vitamin D 1000 units daily; Coreg 6.25 mg b.i.d. with meals. She is currently on electrolyte protocol at this time. She is on Synthroid 175 mcg daily. She is on a sliding scale regular insulin. She is on Pepcid 20 mg b.i.d., diclofenac 25 mg b.i.d., Lipitor 80 mg at bedtime. She is on albuterol and Atrovent updrafts. She is on Eliquis 5 mg b.i.d., methotrexate 10 mg q.7 days p.r.n., Ultram 50 mg q.6 hours p.r.n., Zanaflex 2 mg t.i.d., and nitroglycerin p.r.n. HABITS: No current alcohol or tobacco use. FAMILY HISTORY: Noncontributory. SOCIAL HISTORY: The patient hopes to return back home and get back to her prior level of functioning. REVIEW OF SYSTEMS: GENERAL: Does complain of weakness and fatigue. HEENT: Denies cold, cough, or congestion. CARDIOVASCULAR: Denies any chest pain. PHYSICAL EXAMINATION: VITAL SIGNS: Stable, afebrile. GENERAL: A morbidly obese female, in no acute distress, alert upon exam. HEENT: Normocephalic and atraumatic. Mucosa moist. NECK: Supple. No lymphadenopathy. LUNGS: Clear in upper bender with no wheezing or rales. HEART: Irregular rate and rhythm. ABDOMEN: Soft, benign, and nondistended. Positive bowel sounds times 4. EXTREMITIES: No clubbing, cyanosis, or edema. Area to her thigh region does show postoperative changes from recent surgery. NEUROLOGIC: She does have proximal muscle weakness. LABORATORY DATA: White count 16.9, H&H of 11 and 35, and platelet count is noted to be 443. Her sodium is 135, potassium 3.7, BUN and creatinine of 30 and 1.1, and blood sugar was noted to be 267. ASSESSMENT: This is a 74-year-old female patient admitted to rehab with a working diagnosis of critical illness myopathy secondary to prolonged vent stay and also hematoma to her thigh region. The patient has potential to make improvement. We instituted the following multidisciplinary therapies include, but not limited to physical, occupational, respiratory, speech, nutritional services, prosthetics and orthotics. Given her complex medical condition and risk for more complications, rehabilitation services cannot be provided at a low level of care such as skilled nurse facility. PLAN: 1. Admit to [facility] for intensive inpatient therapy to include the following disciplines: A. Physical therapy to improve gait, all transfer skills and bed mobility to a modified independent level. HISTORY AND PHYSICAL [id number] YONAS CARDONA. Occupational therapy to assist with activities of daily living. C. Case management to assist with discharge planning and placement options. D. Nutrition to assist with nutritional needs. E. Rehabilitation nursing to assist in monitoring the patient's underlying medical conditions and to assist with any type of bowel or bladder management. 2. The patient's current medication and medical care will be continued. 3. The patient will be placed on standard fall precautions. 4. We will watch for any signs of bleeding. 5. We will watch her white count closely, but she is currently on prednisone, which is expected to raise her white count slightly. 6. We will see again in the a.m. TRANSINT:[id number] Voice Confirmation ID: [id number] DOCUMENT ID: [id number] HECTOR notes whether there has been none or any medical/functional change since admission: - No change since prescreen. HECTOR attests patient continues to be appropriate for IRF: - Continues to be appropriate. VAMSI FLAHERTY MD at 1647 CC: [id number] DICTATION DATE: 10/24/19 0841 DIRECTOR FOOD SAFETY: 10/24/19 1122 ADM IN [place] [id number] [place] [id number]
--- NOTE | 2019-10-28 19:17 | NUR ---
GREETED PATIENT AND INTRODUCED MYSELF HER NURSE. PATIENT REPOSITIONED FOR COMFORT AND TO AID WITH BETTER BREATHING. PT. STATES THAT SHE CANT BREATHE AND NEEDS A BREATHING TREATMENT. RESPIRATORY CONTACTED TO ADMINISTER PRN BREATHING TREATMENT. CALL LIGHT IN REACH.
[2019-10-28 20:41] VITALS: BP 157/70
--- NOTE | 2019-10-29 02:26 | NUR ---
PT. RESTING QUIETLY WITH EYES CLOSED. O2 AT 2L IN USE VIA NC. RESPIRATIONS EVEN. NO S/S OF DISTRESS. HOB AT 45 DEGREES TO PROMOTE IMPROVED BREATHING. CALL LIGHT IN REACH.
--- NOTE | 2019-10-29 13:49 | NUR ---
Nutrition Follow-up: Patient was asleep at time of RD visit. She had not eaten any of her lunch tray. Noted several unopened bottles of Glucerna on bedside table. Per chart review noted that patient was on Megace when in acute care. Diet: Diabetic Mech Soft Ground Meats PO intake: ~21% average x last 9 meals. 0% x last 3 meals. Last BM: 10/28/19 x 6. WT: 236# (10/24/19), no new weight Meds noted: prednisone, lantus, lasix, humulin. Labs noted: POC Glu 135(H) Needs new weight. Recommend resume Megace. Continue current diet and oral nutrition supplement for now. Patient may need nutrition support if PO intake does not warp picker. RD is available for TF recommendations if needed. RD following.
[2019-10-29 15:02] VITALS: BP 139/82
--- NOTE | 2019-10-29 18:02 | NUR ---
PT RESTING IN BED, DENIES NEEDS. WCTM.
--- NOTE | 2019-10-29 19:07 | NUR ---
GREETED PATIENT AND INTRODUCED MYSELF HER NURSE. PATIENT IS LAYING IN BED AT THIS TIME. FAMILY MEMBER AT BEDSIDE. O2 AT 2L IN USE AT THIS TIME. PT. STILL DROWSY BUT MORE ALERT THAN LAST EVENING. CALL LIGHT IN REACH.
--- NOTE | 2019-10-29 19:45 | NUR ---
PT CLEANED OF INCONTINENT URINE AND BM. COMPLETE LINEN CHANGE. PT. REPOSITIONED FOR COMFORT. CALL LIGHT IN REACH.
[2019-10-30 00:07] VITALS: BP 115/55
--- NOTE | 2019-10-30 01:30 | NUR ---
PT. CLEANED OF INCONTINENT URINE AND BM. NOTICED PT. HAD DEHISENCE SIGHT WERE CHELSEY HAD BEEN REMOVED ON INNER RIGHT THIGH WITH BLEEDING. SITE CLEANED WITH WOUND LIVE IN COMPANION, 4X4'S DOUBLED AND PLACED ON SITE AND COVERED WITH CLEAR TEGADERM FILM. WCTM. PT. TOLERATED PROCEDURE. CALL LIGHT IN REACH.
--- NOTE | 2019-10-30 03:19 | NUR ---
CHECKED PATIENT AGAIN FOR ANY FURTER EPISODES OF BLEEDING. NOTED PATIENT HAD APPROXIMATELY 30 CM AREA OF BLEEDING NOTED TO INCONTINENCE PAD WITH SMALL BLOOD CLOTS FROM HER VAGINA. PT STATED THAT SHE HAD A HYSTERECTOMY SEVERAL YEARS AGO, BUT THERE IS NO RECORD ON HER HISTORY. STAT CBC ORDERED. RESULTS PENDING. VITAL SIGNS ARE STABLE AT THIS TIME. WCTM.
[2019-10-30 03:23] VITALS: BP 112/56
[2019-10-30 03:37] LABS: BASOPHILS 0.6 % (0-2); EOSINOPHILS 2.2 % (0-7); HEMOGLOBIN 11.3 g/dL (12-16); IMMATURE GRANULOCYTES 0.2 % (0-5); LYMPHOCYTES 20.5 % (15-50); MCH 29.6 pg (26.0-34.0); MCHC 31.4 g/dL (31.0-37.0); MCV 94.2 fL (80.0-100.0); MEAN PLATELET VOLUME 9.6 fL (7.4-10.4); MONOCYTES 8.4 % (2-11); NEUTROPHILS 68.1 % (40-80); PLATELET COUNT 404 10x3/uL (130-400); RBC 3.82 10x6/uL (4.00-5.40); RDW 17.5 % (11.5-14.5); WBC 8.5 10x3/uL (4.8-10.8)
--- NOTE | 2019-10-30 03:49 | NUR ---
REMOVED PTS. KAR PAD AND IT SOAKED THROUGH SINCE 299. NEW KAR PAD APPLIED AND DR. BALLARD OFFICE PAGED FOR FURTHER INSTRUCTIONS. WCTM.
[2019-10-30 04:02] LABS: ANION GAP 9.3 mmol/L (8-16); CALCIUM 8.5 mg/dL (8.5-10.1); CARBON DIOXIDE 33.1 mmol/L (21.0-32.0); CREATININE - SERUM 1.6 mg/dL (0.6-1.3); POTASSIUM - SERUM 3.4 mmol/L (3.5-5.1)
--- NOTE | 2019-10-30 04:26 | NUR ---
PTS VAGINAL BLEEDING RECHECKED. KAR PAD SOAKED AND REMOVED. NEW KAR PAD APPLIED. WCTM.
--- NOTE | 2019-10-30 04:30 | NUR ---
DR FLAHERTY'S AFTER HOURS CALL CENTER CONTACTED AGAIN. CALL CENTER STATED THAT SHE WOULD TRY AND PAGE DR. FLAHERTY AGAIN.
--- NOTE | 2019-10-30 06:47 | NUR ---
PTS BLEEDING IN VAGINA RECHECKED. KAR PAD WAS SATURATED AND CHANGED. PT CLEANED OF INCONTINENT URINE AND BM. REPOSITIONED FOR COMFORT. CALL LIGHT IN REACH.
[2019-10-30 09:36] VITALS: BP 122/63
--- NOTE | 2019-10-30 10:21 | NUR ---
PT CONTINUES TO BLEED FROM VAGINA. PT BEDDING CHANGED. OB TO BE CONSULTED.
--- NOTE | 2019-10-30 11:51 | NUR ---
PT TAMPON IN PLACE.
[2019-10-30 12:33] LABS: HEMOGLOBIN 10.8 g/dL (12-16)
--- NOTE | 2019-10-30 14:09 | NUR ---
Pt has vertical incision over upper right thigh. The top aspect of the incision is open and measures 2cm x 1.5cm. Necrotic tissue is noted. Medihoney was applied and area was covered with 4x4s. Right groin has open wounds in the fold. Area is macerated. Covered with medihoney and dry cotton dressing. Wound care will continue monitoring.
--- NOTE | 2019-10-30 14:10 | NUR ---
DUE TO CHANGE IN MEDICAL CONDITION PATIENT DISCHARGED FROM REHAB AND ADMITTED TO ACUTE FLOOR.
--- NOTE | 2019-10-30 14:30 | NUR ---
RICKS PLACED. RETURN FLUID WAS DARK, BLOODY URINE. SAMPLE SENT FOR CULTURE.
--- NOTE | 2019-10-30 14:58 | NUR ---
RAPID RESPONSE CALLED D/T BP BOTTOMING TO 88/36. PT REPORTS FEELING LIGHTHEADED AND WEAK.
[2019-10-30 15:13] LABS: HEMATOCRIT 33.5 % (36.0-48.0); HEMOGLOBIN 10.6 g/dL (12-16)
[2019-10-30 15:48] LABS: APTT 31.8 SECONDS (22.8-39.4); INR 1.47 (0.85-1.17); PROTIME 17.6 SECONDS (11.6-15.0)
[2019-10-30 15:49] LABS: BACTERIA MANY /hpf (NEGATIVE); EPITHELIAL CELLS 0-5 /hpf (0-5); RED CELLS - URINE >50 /hpf (0-5); WHITE CELLS - URINE 0-5 /hpf (NEGATIVE)
--- NOTE | 2019-10-30 16:20 | NUR ---
PT DISCHARGED TO ICU D/T CHANGE IN CONDITION.
== END 2019-10-30 16:17 | disposition short-term general hospital (02) | DRG 91 ==
LOC: D.REHAB 15:30
PROVIDERS: Urology; ADMIT Emergency Medicine; ATTEND Emergency Medicine
DX: G72.81 Critical illness myopathy (principal); G93.41 Metabolic encephalopathy; J96.01 Acute respiratory failure with hypoxia; G93.40 Encephalopathy, unspecified; N17.9 Acute kidney failure, unspecified; J81.1 Chronic pulmonary edema; I48.91 Unspecified atrial fibrillation; E11.65 Type 2 diabetes mellitus with hyperglycemia; R32 Unspecified urinary incontinence; D72.829 Elevated white blood cell count, unspecified; E66.9 Obesity, unspecified; R13.12 Dysphagia, oropharyngeal phase; R53.81 Other malaise; R53.1 Weakness; I25.10 Atherosclerotic heart disease of native coronary artery without angina pectoris; K21.9 Gastro-esophageal reflux disease without esophagitis; R41.82 Altered mental status, unspecified; Z91.81 History of falling; N93.9 Abnormal uterine and vaginal bleeding, unspecified

== ENCOUNTER 2019-10-30 15:52 | Inpatient (IN) | payer OTHER ==
[~2019-10-30] VITALS: Ht 167.6 cm; Wt 107.0 kg
[2019-10-30] VITALS (9 sets, daily range): BP systolic 91–125; BP diastolic 41–87; BMI 36.4
--- NOTE | ~2019-10-30 | EC ---
PATIENT:YONAS CARDONA DATE OF SERVICE: 10/30/19 SEX: F MEDICAL RECORD: [id number] DATE OF : [birth year] LOCATION:[facility] AGE OF PATIENT: 74 ADMISSION DATE: 10/30/19 REFERRING PHYSICIAN: INTERPRETING PHYSICIAN: ROBYN MARIE MD ECHOCARDIOGRAM REPORT ECHO CHARGES 5 ECHO LIMITED Date: 11/01/19 CLINICAL DIAGNOSIS: CAD ECHOCARDIOGRAPHIC MEASUREMENTS (adult normal given) AC root (d.<3.7cm) 0 cm LV Septum d (<1.2 cm> 0 cm Valve Excursion 0 cm LV Septum (systole) 0 cm Left Atria (s.<4.0cm> 0 cm LVPW d(<1.2cm) 0 cm RV (d.<2.3cm) 0 cm LVPW (sytole) 0 cm LV diastole(<5.6CM) 0 cm MV E-F(>70mm/sec) 0 cm LV systole cm LVOT Diameter 0 cm MV exc.(>10mm) 00 cm Est.ejection fraction (50-75%) 0 % DOPPLER: LVIT 0 cm/sec A 0 cm/sec E 0 cm/sec LA 0 cm/sec RVSP 0 mmHg LVOT 0 cm/sec AOP1/2T 0 m/s Asc. Ao 0 cm/sec RVOT 0 cm/sec RA 0 cm/sec PA 0 cm/sec AV Gradient Peak 0 mmHg AV Mean 0 mmHg AV Area 0 cm MV Gradient Peak 0 mmHg MV Mean 0 mmHg MV Area cm COMMENTS: Gear Coding Machine Operator: Kain PARRA Security Escort: Brandon Valero TAPE# PACS Pericardial Effusion N DATE OF SERVICE: PROCEDURE: Limited echocardiogram for ejection fraction. FINDINGS: Left ventricular chamber size is within normal limits. Left ventricular systolic function is normal at 55%. TRANSINT:[id number] Voice Confirmation ID: [id number] DOCUMENT ID: [id number] ECHOCARDIOGRAM REPORT [id number] YONAS CARDONA JEFFREY MD CC: [id number] DICTATION DATE: 11/01/191533 TALLOW REFINER: 11/01/192054 ADM IN [place] [id number] [place] [address]
[2019-10-30 16:29] LABS: HEMATOCRIT 33.2 % (36.0-48.0); HEMOGLOBIN 10.4 g/dL (12-16); MCH 29.7 pg (26.0-34.0); MCHC 31.3 g/dL (31.0-37.0); MCV 94.9 fL (80.0-100.0); MEAN PLATELET VOLUME 9.7 fL (7.4-10.4); RBC 3.5 10x6/uL (4.00-5.40); RDW 17.6 % (11.5-14.5); WBC 6.7 10x3/uL (4.8-10.8)
--- NOTE | 2019-10-30 16:36 | NUR ---
PT HAS VERTICAL INCISION OVER UPPER RIGHT THIGH. THE TOP OF THE INCISION IS OPEN AND MEASURES 2CM X 2.5CM. NECROTIC TISSUE IS NOTED. RIGHT GROIN HAS OPEN WOUNDS IN THE FOLD. AREA IS MACERATED. CURRENT TX IS MEDIHONEY APPLIED TO BOTH AREAS. WOUND CARE WILL MONITOR.
[2019-10-30 16:48] LABS: APTT 29.7 SECONDS (22.8-39.4); INR 1.41 (0.85-1.17); PROTIME 17.1 SECONDS (11.6-15.0)
[2019-10-30 17:37] LABS: ANION GAP 9.9 mmol/L (8-16); CALCIUM 7.9 mg/dL (8.5-10.1); CARBON DIOXIDE 29.5 mmol/L (21.0-32.0); POTASSIUM - SERUM 3.4 mmol/L (3.5-5.1)
[2019-10-30 17:42] LABS: CREATININE - SERUM 2.1 mg/dL (0.6-1.3)
--- NOTE | 2019-10-30 19:00 | NUR ---
Report received from off going nurse. Pt is laying in bed with eyes closed at this time. Initial assessment completed, see flowsheet for details. Needs denied at this time. No s/s of distress. Will continue to monitor.
--- NOTE | 2019-10-30 21:00 | NUR ---
Pt is laying in bed with eyes closed. No s/s of distress. Will continue to monitor.
--- NOTE | 2019-10-30 23:00 | NUR ---
Reassessment completed, see flowsheet for details. No needs voiced at this time. No s/s of distress. Will continue to monitor.
[2019-10-31] VITALS (18 sets, daily range): BP systolic 112–162; BP diastolic 48–93; Ht 167.6 cm; Wt 107.0 kg
[2019-10-31 05:14] LABS: BASOPHILS 0.6 % (0-2); EOSINOPHILS 3.5 % (0-7); HEMATOCRIT 33.4 % (36.0-48.0); HEMOGLOBIN 10.6 g/dL (12-16); IMMATURE GRANULOCYTES 0.5 % (0-5); LYMPHOCYTES 30.4 % (15-50); MCH 30.1 pg (26.0-34.0); MCHC 31.7 g/dL (31.0-37.0); MCV 94.9 fL (80.0-100.0); MEAN PLATELET VOLUME 9.7 fL (7.4-10.4); MONOCYTES 8.3 % (2-11); NEUTROPHILS 56.7 % (40-80); PLATELET COUNT 372 10x3/uL (130-400); RBC 3.52 10x6/uL (4.00-5.40); RDW 17.7 % (11.5-14.5); WBC 6.3 10x3/uL (4.8-10.8)
[2019-10-31 05:42] LABS: ALBUMIN 2.4 g/dL (3.4-5.0); ANION GAP 10.2 mmol/L (8-16); BILIRUBIN - TOTAL 1.33 mg/dL (0.2-1.3); CALCIUM 8.6 mg/dL (8.5-10.1); CARBON DIOXIDE 31.1 mmol/L (21.0-32.0); POTASSIUM - SERUM 3.3 mmol/L (3.5-5.1); PROTEIN - SERUM 6.6 g/dL (6.4-8.2)
[2019-10-31 05:46] LABS: CREATININE - SERUM 1.4 mg/dL (0.6-1.3)
--- NOTE | 2019-10-31 09:06 | NUR ---
0700 ASSESSMENT COMPLETE IN BED WITH AUDIBLE EXP WHEEZING AND RHONCHI NOTED ORAL AND FACIAL CARE PROVIDED RICKS CARE DONE RICKS DRAINING BLOODY URINE WITH DARK SEDIMENT LARGE HEMATOMA NOTED TO RIGHT GROIN AND THIGH DRESSING INTACT PATIENT WHISPERS WHEN SPEAKING INSTRUCTED NPO FOR PROCEEDURE WITH DR MORALES
--- NOTE | 2019-10-31 09:25 | NUR ---
0800 DR MORALES ROUNDING ON PATIENT
--- NOTE | 2019-10-31 09:26 | NUR ---
0900 DR RICO NURSE INFORMED THAT HER SURGERY WILL BE POSTPONED UNTIL 10/31. STARTED IV WITH 22 GAUGE TO RIGHT FOREARM SERUM POTASSIUM 3.3 FOLLOWING ELECTROLYTE PROTOCOL
--- NOTE | 2019-10-31 11:56 | NUR ---
Wound vac dressing applied to top of vertical incision on right upper thigh. The open area measures 3cm x 1cm x 1.5cm. Wound bed has necrotic tissue around edges. Slight odor with a moderate serous drainage. Black foam was applied to wound bed and secured. Vac settings are -125mmhg low continuous. Pt tolerated well.
--- NOTE | 2019-10-31 19:10 | NUR ---
ALERT WITH CONFUSION NOTED. O2 AT 4L VIA N/C DRESSING TO RIGHT GROIN. WOUND VAS TO RIGHT THIGH INTACT AND WORKING,IV TO RIGHT FR INTACT. FOLLY CHATHER IN PLACE WITH DARK URINE WITH SOME BLOODY OUTPUT. HEAD OF BED ELAVATED. NO NEEDS AT THIS TIME.
--- NOTE | 2019-10-31 19:51 | NUR ---
1300 PATIENT CONT TO REMOVE LINES AND O2 REORIENTED PATIENT
--- NOTE | 2019-10-31 19:51 | NUR ---
1100 REMAINS NPO FOR SURGERY
--- NOTE | 2019-10-31 19:52 | NUR ---
1700 DIET TRAY ORDERED AND GIVEN APPETITE POOR
--- NOTE | 2019-10-31 21:05 | NUR ---
RESTING IN BED NO NEEDS AT THIS TIME WATER AND CALL LIGHT IN REACH.
--- NOTE | 2019-10-31 23:10 | NUR ---
CONFUSED REMOVED PULSE OXIMETER SENSOR , RELAPCED WITH A NEW ONE. EDUCATED PATINT TO LEAVE ON
[2019-11-01] VITALS (24 sets, daily range): BP systolic 106–157; BP diastolic 54–86
--- NOTE | 2019-11-01 01:15 | NUR ---
BATH GIVEN BED CHANGED. PULSE OXIMETER SENSOR REPLACED 2X. PT. CONFUSED AND REMOVES. NO NEEDS CALL LIGHT IN REACH
--- NOTE | 2019-11-01 03:25 | NUR ---
PULSE OXMETER REPLACED PT. REMOVED. DRESSING CHANED TO ARIES DRAIN AND TO RIGHT GROIN. DAFNE HOSE REMOVED AND SKIN CHECKED OFF FOR ONE HOUR. NO NEEDS AT THIS TIME
[2019-11-01 03:50] LABS: BASOPHILS 0.2 % (0-2); EOSINOPHILS 0 % (0-7); HEMOGLOBIN 11.4 g/dL (12-16); IMMATURE GRANULOCYTES 0.4 % (0-5); LYMPHOCYTES 12.6 % (15-50); MCH 29.8 pg (26.0-34.0); MCHC 31.7 g/dL (31.0-37.0); MCV 94.2 fL (80.0-100.0); MEAN PLATELET VOLUME 9.5 fL (7.4-10.4); MONOCYTES 1.4 % (2-11); NEUTROPHILS 85.4 % (40-80); PLATELET COUNT 330 10x3/uL (130-400); RBC 3.82 10x6/uL (4.00-5.40); RDW 16.9 % (11.5-14.5); WBC 5.7 10x3/uL (4.8-10.8)
[2019-11-01 04:09] LABS: ALBUMIN 2.4 g/dL (3.4-5.0); BILIRUBIN - TOTAL 1.44 mg/dL (0.2-1.3); CALCIUM 8.9 mg/dL (8.5-10.1); CARBON DIOXIDE 23.4 mmol/L (21.0-32.0); PROTEIN - SERUM 6.9 g/dL (6.4-8.2)
[2019-11-01 04:25] LABS: ANION GAP 15.5 mmol/L (8-16); POTASSIUM - SERUM 4.9 mmol/L (3.5-5.1)
--- NOTE | 2019-11-01 05:21 | NUR ---
SLEEPING AT THIS TOME NO NEEDS
--- NOTE | 2019-11-01 07:00 | NUR ---
REPORT RECEVIED FROM THE OFF GOING RN. SEE ASSESSMENT IN THE PTS FLOW SHEET. VSS. PT SLEEPY BUT EASILY AROUSED. CALL LIGHT IN REACH. WILL CONT POC.
--- NOTE | 2019-11-01 09:03 | NUR ---
CLEAR, LIQUID DIET PROVIDED FOR THE PT. PT VOMITED ABOUT 50 CC IN AN EMESIS BAG. PT STATED "THE CHICKEN BROTH DIDNT AGREE WITH ME". OFFERED SOME ZOFRAN AND PT REFUSED. "IM NOT SICK ANYMORE".
--- NOTE | 2019-11-01 09:56 | NUR ---
Nutrition follow-up: PO intake of regular mechanical soft with gr meat/gravy, thin liquids has been poor 2/2 pt not feeling well; some emesis noted Labs reviewed Pt with SOB also Wt: 224# Labs reviewed May need to consider nutrition support if po intake continues to be poor. RDN following.
--- NOTE | 2019-11-01 10:19 | NUR ---
PT REMAINS DROWSEY BUT EASLY AROUSED TO VERBAL STIMULI. PT STATES THAT SHE IS JUST SLEEPY. VSS. WILL CONT POC.
--- NOTE | 2019-11-01 13:00 | NUR ---
PT RESTING ERVIN. VSS. WILL CONT POC.
--- NOTE | 2019-11-01 16:32 | NUR ---
OT NOTE: PT COMPLETED SUPINE TO SIT WITH MOD A. PT COMPLETED ADLS AT EOB WITH SET UP AND EXTRA TIME . PT REQUIRED MOD A X2. [id number] THANK YOU,ROSS LOAIZA
--- NOTE | 2019-11-01 17:00 | NUR ---
PT EASILY AROUSED BY VOICE. PT CONFUSED BUT PLESANT. ASKED FOR HER DINNER AND SHE ATE IT WITH NO ISSUES. WILL CONT POC.
--- NOTE | 2019-11-01 18:00 | MORECARE ---
CASE MANAGEMENT DISCHARGE SUMMARY PATIENT: YONAS CARDONA UNIT: [id number] ADM DATE: 10/30/19 AGE: 74 : 47 SEX: F [facility]BED: [facility] AUTHOR: SARBJIT DEVRIES PHYSICIAN: REFERRING PHYSICIAN: VAMSI FLAHERTY MD DATE OF SERVICE: 11/01/19 Discharge Plan Patient Name: YONAS CARDONA Facility: [facility]:[place] : 1945 Planned Disposition: Inpatient Rehab Anticipated Discharge Date: Discharge Date: Expected LOS: Initial Reviewer: [email or web address] Initial Review Date: 11/01/2019 Generated: 11/01/19 6:59 pm Coverage Notice Reviewer: [email or web address] Richard Swift Notice Issued Date-Time: 11/01/2019 17:51 Notice Type: Patient Choice Letter Notice Delivered To: Family Member Relationship to Patient: Brother Red Leader Name: AWILDA MAYES Delivery Method: PHONE - Phone Rose Days: Prior Verbal Notification: Recipient Understood Notice: Yes Recipient Signature: Yes Med Rec Note Co-signed by Attending: Coverage Notice Comment: Patient Name: YONAS CARDONA Page [phone] at 1800 All edits/amendments must be made on the electronic document DICTATION DATE: 11/01/191758 CHIPS SCREEN TENDER: CHILANGO 11/01/191758 RPT#: [id number] DC DATE: STATUS: ADM IN [facility] [address] [place] [address] END OF REPORT
--- NOTE | 2019-11-01 18:15 | MORECARE ---
CASE MANAGEMENT DISCHARGE SUMMARY PATIENT: YONAS CARDONA UNIT: [id number] ADM DATE: 10/30/19 AGE: 74 : 47 SEX: F ROOM/BED: D.[facility] AUTHOR: SARBJIT DEVRIES PHYSICIAN: REFERRING PHYSICIAN: VAMSI FLAHERTY MD DATE OF SERVICE: 11/01/19 Discharge Plan Patient Name: YONAS CARDONA Facility: [facility]:[place] : 1945 Planned Disposition: Inpatient Rehab Anticipated Discharge Date: Discharge Date: Expected LOS: Initial Reviewer: [email or web address] Initial Review Date: 11/01/2019 Generated: 11/01/19 7:15 pm DCPIA - Discharge Planning Initial Assessment Updated by VICENTE: Aisha Swift on 11/01/19 6:10 pm * Is the patient Alert and Oriented? No * PCP [facility] * Pharmacy [facility] * Preadmission Environment Home Alone * ADLs Independent * Other Equipment CANE , WALKER * List name and contact numbers for known caregivers / representatives who currently or will assist patient after discharge: AWILDA MAYES - BROTHER- [phone] LEIGHA Ramos DAUGHTER- [phone] * Verbal permission to speak to the caregivers and representatives has been obtained from the patient. N/A * Community resources currently utilized None * Additional services required to return to the preadmission environment? No * Can the patient safely return to the preadmission environment? Yes * Has this patient been hospitalized within the prior 30 days at any hospital? Yes Coverage Notice Reviewer: [email or web address] Richard wSift Notice Issued Date-Time: 11/01/2019 17:51 Notice Type: Patient Choice Letter Notice Delivered To: Family Member Relationship to Patient: Brother Digital Campaign Specialist Name: AWILDA MAYES Delivery Method: PHONE - Phone Rose Days: Prior Verbal Notification: Recipient Understood Notice: Yes Recipient Signature: Yes Med Rec Note Co-signed by Attending: Coverage Notice Comment: Last DP export: 11/01/19 5:00 pm Patient Name: YONAS CARDONA Page [phone] at 1815 All edits/amendments must be made on the electronic document DICTATION DATE: 11/01/191814 LEASE ADMINISTRATION ANALYST: CHILANGO 11/01/191814 RPT#: [id number] DC DATE: STATUS: ADM IN [facility] [address] [place] [address] END OF REPORT
--- NOTE | 2019-11-01 18:23 | MORECARE ---
CASE MANAGEMENT DISCHARGE SUMMARY PATIENT: YONAS CARDONA UNIT: [id number] ADM DATE: 10/30/19 AGE: 74 : [birth year] SEX: F ROOM/BED: D.[facility]3 AUTHOR: KAYCE,DOC PHYSICIAN: REFERRING PHYSICIAN: VAMSI FLAHERTY MD DATE OF SERVICE: 11/01/19 Discharge Plan Patient Name: YONAS CARDONA Facility: [facility]:[place] : 1945 Planned Disposition: Inpatient Rehab Anticipated Discharge Date: Discharge Date: Expected LOS: Initial Reviewer: [id number] Initial Review Date: 11/01/2019 Generated: 11/01/19 7:23 pm Comments DCP- Discharge Planning Updated by [id number]: Aisha Swift on 11/01/19 5:[address] Patient Name: YONAS CARDONA Admission Status: Urgent Accout number: [id number] Admission Date: 10-30-2019 : 1945 Admission Diagnosis: Attending: ADELINE FLAHERTY Current LOS: 2 Anticipated DC Date: Planned Disposition: Inpatient Rehab Primary Insurance: [employer] Discharge Planning Comments: CM attempted to speak with patient regarding discharge planning. Patient confused and unable to answer questions appropriately. CM had seen patient last admission and prior to previous admission 10/09/19 patient lived at home alone independently and her brother Awilda lives next door. CM contacted patient's brother Awilda [phone] and he stated he would like to her to go back to Inpatient Rehab upon discharge. RACHELE signed. CM will continue to follow and assist as needed with discharge planning / needs. Onshore Diver: Aisha Swift DCPIA - Discharge Planning Initial Assessment Updated by [id number]: Aisha Swift on 11/01/19 6:10 pm * Is the patient Alert and Oriented? No * PCP JEISONO * Pharmacy [facility] * Preadmission Environment Home Alone * ADLs Independent * Other Equipment CANE , WALKER * List name and contact numbers for known caregivers / representatives who currently or will assist patient after discharge: AWILDA YANGPARKING LOT MANAGER - BROTHER- [phone] LEIGHA - DAUGHTER- [phone] * Verbal permission to speak to the caregivers and representatives has been obtained from the patient. N/A * Community resources currently utilized None * Additional services required to return to the preadmission environment? No * Can the patient safely return to the preadmission environment? Yes * Has this patient been hospitalized within the prior 30 days at any hospital? Yes Coverage Notice Reviewer: [id number] Richard Swift Notice Issued Date-Time: 11/01/2019 17:51 Notice Type: Patient Choice Letter Notice Delivered To: Family Member Relationship to Patient: Brother Roofer Helper Vinyl Coating Name: AWILDA MAYES Delivery Method: PHONE - Phone Rose Days: Prior Verbal Notification: Recipient Understood Notice: Yes Recipient Signature: Yes Med Rec Note Co-signed by Attending: Coverage Notice Comment: Last DP export: 11/01/19 5:15 pm Patient Name: YONAS CARDONA Page [id number] at 1823 All edits/amendments must be made on the electronic document DICTATION DATE: 11/01/191822 DRIED FRUIT WASHER: CHILANGO 11/01/191822 RPT#: [id number] DC DATE: STATUS: ADM IN [facility] [address] [place] [address] END OF REPORT
--- NOTE | 2019-11-01 19:00 | NUR ---
ASSESSMENT COMPLETED. CONFUSION NOTED. CHG BATH AND COMPLETE LINEN CHANGE. CALL LIGHT IN REACH
--- NOTE | 2019-11-01 21:00 | NUR ---
REPOSITIONED. DENIES ANY NEEDS. CALL LIGHT IN REACH. TOLERATED MEDS WITHOUT COMPLICATIONS
--- NOTE | 2019-11-01 23:00 | NUR ---
RE-ASSESSMENT COMPLETED. NO CHANGES SINCE LAST ASSESSMENT
[2019-11-02] VITALS (16 sets, daily range): BP systolic 110–154; BP diastolic 54–101
--- NOTE | 2019-11-02 01:00 | NUR ---
CHANGED DRESSING TO RIGHT GROIN PER ORDERS.
--- NOTE | 2019-11-02 03:00 | NUR ---
RE-ASSESSMENT COMPLETED. NO CHANGES SINCE LAST ASSESSMENT. CALL LIGHT IN REACH
[2019-11-02 04:15] LABS: BASOPHILS 0.1 % (0-2); EOSINOPHILS 0 % (0-7); HEMATOCRIT 33.4 % (36.0-48.0); HEMOGLOBIN 10.5 g/dL (12-16); IMMATURE GRANULOCYTES 0.3 % (0-5); LYMPHOCYTES 10.7 % (15-50); MCH 29.6 pg (26.0-34.0); MCHC 31.4 g/dL (31.0-37.0); MCV 94.1 fL (80.0-100.0); MEAN PLATELET VOLUME 9.3 fL (7.4-10.4); MONOCYTES 2.3 % (2-11); NEUTROPHILS 86.6 % (40-80); PLATELET COUNT 313 10x3/uL (130-400); RBC 3.55 10x6/uL (4.00-5.40); RDW 17.2 % (11.5-14.5)
[2019-11-02 04:21] LABS: WBC 7.8 10x3/uL (4.8-10.8)
[2019-11-02 04:35] LABS: ALBUMIN 2.4 g/dL (3.4-5.0); ANION GAP 10.2 mmol/L (8-16); BILIRUBIN - TOTAL 1.01 mg/dL (0.2-1.3); CARBON DIOXIDE 26.3 mmol/L (21.0-32.0); CREATININE - SERUM 0.9 mg/dL (0.6-1.3); MAGNESIUM - SERUM 1.6 mg/dL (1.8-2.4); PHOSPHOROUS 1.9 mg/dL (2.5-4.9); POTASSIUM - SERUM 4.5 mmol/L (3.5-5.1); PROTEIN - SERUM 6.5 g/dL (6.4-8.2)
--- NOTE | 2019-11-02 05:00 | NUR ---
REPOSITIONED. DENIES COMPLAINTS
--- NOTE | 2019-11-02 06:30 | NUR ---
FLUSHED F/C D/T C/O PAIN AND RICKS LEAKING.
--- NOTE | 2019-11-02 07:00 | NUR ---
BEDSIDE REPORT RECEIVED. SHIFT ASSESSMENT COMPLETED PER FLOWSHEET, SEE FLOWSHEET FOR INFORMATION. PT TURNED AND PARTIAL LINEN CHANGE COMPLETED. NO ACUTE NEEDS OR DISTRESS NOTED AT THIS TIME. VSS. WILL CONT TO MONITOR.
--- NOTE | 2019-11-02 09:00 | NUR ---
0900 MEDICATIONS AND BREAKFAST TRAY GIVEN, PT DENIES ANY ACUTE NEEDS OR DISTRESS AT THIS TIME. VSS. WILL CONT TO MONITOR.
--- NOTE | 2019-11-02 11:00 | NUR ---
REASSESSMENT COMPLETED PER FLOWSHEET, SEE FLOWSHEET FOR INFORMATION. PT DENIES ANY ACUTE NEEDS OR DISTRESS. ASSISSTED PT TO BSC, NO OUTPUT NOTED. WILL CONT TO MONITOR.
--- NOTE | 2019-11-02 13:00 | NUR ---
PT IN CHAIR RESTING WITH EYES OPEN. NEW ORDERS RECEIVED. WILL CONT TO MONITOR.
--- NOTE | 2019-11-02 14:30 | NUR ---
REPORT CALLED TO KENNEDY WOOD ON MED 2. NO ACUTE NEEDS OR DISTRESS NOTED. WILL TRANSFER PT TO ROOM 2237 VIA WHEELCHAIR.
--- NOTE | 2019-11-02 16:02 | NUR ---
PATIENT ALERT AND ORIENTED AND ANSWERS APPROPRATE BUT SOFT SPOKEN.ARIES DRAIN AND WOUND VAC NOTED TO RT. THIGH. PEDAL PULSES NOTED WITH NO PERIPHERAL EDEMA NOTED. GENERALIZED ECCYMOSIS NOTED TO RT. THIGH. ENCOURAGED TO USE CALL LIGHT FOR ASSSIT. LUNGS CTA AND HRRR. ABDOMEN OBESE WITH HYPOACTIVE BOWEL SOUNDS X4.
--- NOTE | 2019-11-02 20:55 | NUR ---
LYING IN BED. ALERT AND ORIENTED TO SELF. CONFUSED. TALKS INCOHERENTLY AT TIMES. GLORY ALARM IN USE FOR PT SAFETY. RESP LABORED, IRREG. O2 @ 2L/NC. VOICE IS HOARSE. REPORTS PROD COUGH WITH YELLOW SPUTUM. WOUND VAC NOTED TO RT THIGH WITH NO DRAINAGE IN CANISTER. ARIES DRAIN NOTED TO RT THIGH WITH BLOODY DRAINAGE IN BULB. DSRG NOTED TO RT ABD FOLD. SALINE LOCK NOTED TO RT FOREARM. RICKS CATH PATENT AND DRAINING BHARTI URINE. SR ELEVATED X2. CL IN REACH.,
[2019-11-03] VITALS: BP 147/61
--- NOTE | 2019-11-03 01:00 | NUR ---
PULLED IV OUT. CONFUSED. 20 G INSERTED IN RT FOREARM AFTER ATTEMPT X1. CL IN REACH.
--- NOTE | 2019-11-03 03:22 | NUR ---
HASNT SLEPT WELL. CONFUSED. GLORY ALARM ON FOR PT SAFETY. CL IN REACH.
[2019-11-03 04:00] VITALS: BP 145/72
[2019-11-03 06:13] LABS: BASOPHILS 0 % (0-2); EOSINOPHILS 0 % (0-7); HEMATOCRIT 30.7 % (36.0-48.0); IMMATURE GRANULOCYTES 0.6 % (0-5); LYMPHOCYTES 10.3 % (15-50); MCHC 32.6 g/dL (31.0-37.0); MCV 92.2 fL (80.0-100.0); MEAN PLATELET VOLUME 9.6 fL (7.4-10.4); MONOCYTES 3.5 % (2-11); NEUTROPHILS 85.6 % (40-80); PLATELET COUNT 329 10x3/uL (130-400); RBC 3.33 10x6/uL (4.00-5.40); RDW 17.3 % (11.5-14.5); WBC 9.7 10x3/uL (4.8-10.8)
[2019-11-03 06:37] LABS: ALBUMIN 2.4 g/dL (3.4-5.0); BILIRUBIN - TOTAL 0.83 mg/dL (0.2-1.3); CALCIUM 8.7 mg/dL (8.5-10.1); CARBON DIOXIDE 24.1 mmol/L (21.0-32.0); POTASSIUM - SERUM 4.1 mmol/L (3.5-5.1); PROTEIN - SERUM 6.3 g/dL (6.4-8.2)
--- NOTE | 2019-11-03 09:00 | NUR ---
ALERT AND ORIENTED X4. PATINET SOFT SPOKEN. GENERALIZED WEAKNESS TO BLE WITH DAFNE HOSE ON WITH NO PERIPHERAL EDEMA NOTED. ARIES DRAIN NOTED TO RT. THIGH WITH SEROSANGUNOUS DRAINAGE. WOUND VAC INTACT TO SUCTION. RICKS CATH PATIENT WITH CLEAR BHARTI URINE. IV TO RT. F/A WITH NO S/S OF INFECTION/INFILTRATION. DENIES ANY PAIN OR DISCOMFORT AT THIS TIME AND ENCOURAGED TO USE CALL LIGHT FOR ASSIST.
[2019-11-03 09:43] VITALS: BP 154/64
[2019-11-03 12:53] VITALS: BP 133/51
[2019-11-03 17:53] VITALS: BP 132/56
[2019-11-03 20:00] VITALS: BP 104/40
--- NOTE | 2019-11-03 20:15 | NUR ---
LYING IN BED WATCHING TV. IRRITABLE. ALERT AND ORIENTED TO SELF AND PLACE. CONFUSED. INCONT OF URINE. GLORY ALARM ON FOR PT SAFETY. RESP IRREG. SOB. VOICE IS HOARSE. NONPROD COUGH NOTED. O2 @ 2L/NC. BRUISES NOTED TO BUE. DRSG NOTED TO RT ABD FOLD. ARIES DRAIN NOTED TO RT THIGH WITH SEROUS FLUID IN BULB. WOUND VAC NOTED TO RT THIGH WITH NO DRAINAGE IN CANISTER. DENIES PAIN. SALINE LOCK NOTED TO RT FOREARM. SR ELEVATED X2. CL IN REACH.
[2019-11-04] VITALS: BP 113/68
--- NOTE | 2019-11-04 02:11 | NUR ---
LYING IN BED WITH EYES CLOSED. RESP NONLABORED. O2 IN USE. GLORY ALARM ON. PUREWICK CATH IN PLACE NOW. CL IN REACH. NO DISTRESS.
[2019-11-04 04:00] VITALS: BP 118/70
--- NOTE | 2019-11-04 04:05 | NUR ---
LYING IN BED, AWAKE. CONFUSED. NO DISTRESS. PT IS CLEAN AND DRY. CL IN REACH.
[2019-11-04 06:46] LABS: BASOPHILS 0 % (0-2); EOSINOPHILS 0 % (0-7); HEMATOCRIT 31.3 % (36.0-48.0); HEMOGLOBIN 10.2 g/dL (12-16); IMMATURE GRANULOCYTES 0.9 % (0-5); LYMPHOCYTES 11.2 % (15-50); MCH 29.9 pg (26.0-34.0); MCHC 32.6 g/dL (31.0-37.0); MCV 91.8 fL (80.0-100.0); MEAN PLATELET VOLUME 9.7 fL (7.4-10.4); MONOCYTES 3.2 % (2-11); NEUTROPHILS 84.7 % (40-80); PLATELET COUNT 304 10x3/uL (130-400); RBC 3.41 10x6/uL (4.00-5.40); RDW 17.3 % (11.5-14.5); WBC 10.8 10x3/uL (4.8-10.8)
--- NOTE | 2019-11-04 07:00 | NUR ---
CONFUSED. NO C/O PAIN. NO S/S OF ACUTE DISTRESS NOTED. ON 2L O2, NC. IV TO RIGHT WRIST, SL. SITE PATENT WITHOUT REDNESS OR SWELLING. WOUND VAC AND ARIES DRAIN TO RIGHT THIGH, DRESSINGS C/D/I. RLQ DRESSING, C/D/I. VOICE HOARSE THIS AM. WEARS GLASSES. ACHS. PUREWICK, URINE TEA COLORED. DENIES ANY NEEDS AT THIS TIME. CALL LIGHT IN REACH. WILL CONTINUE TO MONITOR.
[2019-11-04 08:38] LABS: ALBUMIN 2.5 g/dL (3.4-5.0); ANION GAP 13.3 mmol/L (8-16); BILIRUBIN - TOTAL 0.71 mg/dL (0.2-1.3); CALCIUM 8.7 mg/dL (8.5-10.1); CARBON DIOXIDE 23.9 mmol/L (21.0-32.0); CREATININE - SERUM 0.9 mg/dL (0.6-1.3); POTASSIUM - SERUM 4.2 mmol/L (3.5-5.1); PROTEIN - SERUM 5.8 g/dL (6.4-8.2)
[2019-11-04 09:14] VITALS: BP 127/67
[2019-11-04 10:21] LABS: BILIRUBIN NEGATIVE (NEGATIVE); GLUCOSE 1000 mg/dL (NEGATIVE); KETONE NEGATIVE (NEGATIVE); NITRITE NEGATIVE (NEGATIVE); UROBILINOGEN NORMAL (NORMAL)
[2019-11-04 10:22] LABS: RED CELLS - URINE >50 /hpf (0-5); WHITE CELLS - URINE 0-5 /hpf (NEGATIVE)
[2019-11-04 10:23] LABS: BACTERIA FEW /hpf (NEGATIVE); EPITHELIAL CELLS 0-5 /hpf (0-5)
--- NOTE | 2019-11-04 11:31 | NUR ---
WOUND VAC DRESSING CHANGE DATE: 11/04/2019 WOUND LOCATION: RIGHT UPPER THIGH WOUND MEASUREMENTS: 3CM X 1CM X 1.5CM WOUND DESCRIPTION: DELEON/BROWN TISSUE AROUND EDGE AND PINK WOUND BED MUSCLE, TENDON, OR BONE EXPOSED? NO DRAINAGE AMOUNT/DESCRIPTION: MODERATE SEROUS ODOR? SLIGHT TYPE OF SPONGE USED AND AMOUNT: BLACK X 1 (+2 FOR BRIDGE AND TRAC PAD) SETTINGS: -125MMHG LOW CONTINUOUS TEACHING: DRESSING CHANGES PT TOLERATED WELL.
--- NOTE | 2019-11-04 12:24 | NUR ---
PATIENT IS WITHOUT DISTRESS.CALL LIGHT IN REACH
[2019-11-04 12:52] VITALS: BP 158/74
--- NOTE | 2019-11-04 15:46 | NUR ---
Rehab Note- Acute Inpatient Rehab prescreen order received. The patient has [employer] insurance and will require a PreAuth prior to an acute inpatient rehab stay. Will follow and begin the PreAuth process. Thank you for this referral! Margaret Ricketts RN Clinical Liaison, [facility] Rehab
[2019-11-04 17:13] VITALS: BP 116/74
--- NOTE | 2019-11-04 18:30 | NUR ---
RESTING IN BED WITH EYES CLOSED, RESPIRATIONS EVEN AND UNLABORED. NO S/S OF ACUTE DISTRESS NOTED. CALL LIGHT IN REACH. WILL CONTINUE TO MONITOR.
--- NOTE | 2019-11-04 19:20 | NUR ---
REPORT RECEIVED, WILL CONTINUE POC. PATIENT IS AAOX3, LYING IN SEMI-FOWLERS POSITION. PIV TO RT WRIST, PATENT, SL, DRSG C/D/I. WOUND VAC TO RT THIGH INTACT, ARIES DRAIN TO RT THIGH DRAINING SEROSANGUINOUS FLUID. DRSG TO ABD FOLDS C/D/I. PATIENT DENIES NEEDS AT THIS TIME. CL IN REACH, BED LOCKED AND LOWERED. GLORY ALARM ON. WILL CTM.
[2019-11-04 20:00] VITALS: BP 136/61
--- NOTE | 2019-11-04 20:06 | NUR ---
OT NOTE: PT COMPLETED BED MOB SUPINE TO SIT WITH MIN A. PT COMPLETED ADL MOB WITH RW AND REQUIRED MAX A SECONDARY TO MANAGING WOUND VAC/MEDICAL EQUIPMENT. PT IS AGGRAVATED WITH PURE WIC. PT STATED BRIEFS ARE PREFERRED. PT REQUIRED MOD A WITH LB HYGIENE. HAWKINS NOTIFIED NURSING IN ORDER THAT PT COULD EXPRESS PREFERENCE. [phone] THANK YOU,ROSS LOAIZA
[2019-11-05] VITALS: BP 133/50
--- NOTE | 2019-11-05 00:37 | NUR ---
@2200 PATIENT "FIRED" COOK CHEF FOR ALLEGEDLY NOT HELPING HER. THE COOK CHEF AND MYSELF HAD BEEN IN THERE SEVERAL TIMES. PATIENT CLAIMS SHE WAS GIVEN A VACCINE THAT IN RETURN GAVE HER A VIRUS THAT HAS KILLED 109 CHILDREN. SHE BELIEVES SHE IS BEING TREATED FOR SAID VIRUS. REORIENTED PATIENT. CHARGE NURSE SPOKE WITH PATIENT. PATIENT NOW CALM AND RESTING.
--- NOTE | 2019-11-05 03:52 | NUR ---
ASSISTED PT TO BSC TO VOID. CHANGED LINENS, ASSISTED IN PERICARE AND CHANGED PULL UP. GOWN CHANGED. 40CC DRAINED FROM ARIES DRAIN. ASSISTED PATIENT BACK TO BED. CL IN REACH, BED LOCKED AND LOWERED. WILL CTM.
[2019-11-05 04:00] VITALS: BP 141/72
--- NOTE | 2019-11-05 04:37 | NUR ---
I have reviewed this patient and I concur with the Shift Assessment completed by the Licensed Practical Nurse today this shift.
[2019-11-05 05:44] LABS: BASOPHILS 0.1 % (0-2); EOSINOPHILS 0.1 % (0-7); HEMATOCRIT 32.4 % (36.0-48.0); HEMOGLOBIN 10.7 g/dL (12-16); IMMATURE GRANULOCYTES 1.4 % (0-5); LYMPHOCYTES 18.8 % (15-50); MCH 30.1 pg (26.0-34.0); MCV 91.3 fL (80.0-100.0); MEAN PLATELET VOLUME 9.6 fL (7.4-10.4); MONOCYTES 8.2 % (2-11); NEUTROPHILS 71.4 % (40-80); PLATELET COUNT 309 10x3/uL (130-400); RBC 3.55 10x6/uL (4.00-5.40); RDW 17.3 % (11.5-14.5); WBC 11.6 10x3/uL (4.8-10.8)
[2019-11-05 06:30] LABS: ANION GAP 12.1 mmol/L (8-16); CALCIUM 9.5 mg/dL (8.5-10.1); CARBON DIOXIDE 25.8 mmol/L (21.0-32.0); CREATININE - SERUM 0.9 mg/dL (0.6-1.3); POTASSIUM - SERUM 3.9 mmol/L (3.5-5.1)
--- NOTE | 2019-11-05 07:00 | NUR ---
RESTING IN BED WITH EYES CLOSED, RESPIRATIONS EVEN AND UNLABORED. NO S/S OF ACUTE DISTRESS NOTED. CALL LIGHT IN REACH. WILL CONTINUE TO MONITOR.
[2019-11-05 09:42] VITALS: BP 163/83
[2019-11-05 13:01] VITALS: BP 158/86
--- NOTE | 2019-11-05 16:27 | NUR ---
Rehab Note- PreAuth has been started and clinicals have been faxed for review for possible inpatient acute rehab stay. Will conitnue to await determination. Thank you for this referral! Margaret Ricketts RN CLinical Liaison, [facility] Rehab
[2019-11-05 17:24] VITALS: BP 107/56
--- NOTE | 2019-11-05 18:24 | NUR ---
SITTING UP IN BED WATCHING TELEVISION. NO C/O PAIN. NO S/S OF ACUTE DISTRESS NOTED. DENIES ANY NEEDS AT THIS TIME. CALL LIGHT IN REACH. WILL CONTINUE TO MONITOR.
[2019-11-05 20:00] VITALS: BP 116/59
--- NOTE | 2019-11-06 00:48 | NUR ---
PATIENT IS ALERT AND CONFUSED. O2 AT 2L VIA N/C. WOUND VAC, AND ARIES DRAIN IN PLACE WITH DRESSING INTACT.CALL LIGHT AND WATER IN REACH BED LOW.
[2019-11-06 04:00] VITALS: BP 123/66
[2019-11-06 06:49] LABS: BASOPHILS 0.1 % (0-2); EOSINOPHILS 1.9 % (0-7); HEMATOCRIT 32.5 % (36.0-48.0); HEMOGLOBIN 10.6 g/dL (12-16); IMMATURE GRANULOCYTES 3.3 % (0-5); LYMPHOCYTES 26.2 % (15-50); MCH 30.1 pg (26.0-34.0); MCHC 32.6 g/dL (31.0-37.0); MCV 92.3 fL (80.0-100.0); MEAN PLATELET VOLUME 9.7 fL (7.4-10.4); MONOCYTES 7.4 % (2-11); NEUTROPHILS 61.1 % (40-80); PLATELET COUNT 257 10x3/uL (130-400); RBC 3.52 10x6/uL (4.00-5.40); RDW 18.1 % (11.5-14.5); WBC 9.4 10x3/uL (4.8-10.8)
[2019-11-06 06:59] LABS: ANION GAP 10.9 mmol/L (8-16); CALCIUM 8.8 mg/dL (8.5-10.1); CARBON DIOXIDE 26.8 mmol/L (21.0-32.0); CREATININE - SERUM 0.8 mg/dL (0.6-1.3); POTASSIUM - SERUM 3.7 mmol/L (3.5-5.1)
--- NOTE | 2019-11-06 07:00 | NUR ---
ALERT AND ORIENTED X2. NO C/O PAIN. NO S/S OF ACUTE DISTRESS NOTED. DENIES ANY NEEDS AT THIS TIME. CALL LIGHT IN REACH. WILL CONTINUE TO MONITOR.
[2019-11-06 09:32] VITALS: BP 135/61
[2019-11-06 12:40] VITALS: BP 116/57
--- NOTE | 2019-11-06 13:49 | NUR ---
WOUND VAC DRESSING CHANGE DATE: 11/06/2019 WOUND LOCATION: RIGHT UPPER THIGH WOUND MEASUREMENTS: 3CM X 1CM X 1.5CM WOUND DESCRIPTION: WOUND BED RED WITH DELEON SLOUGH ON EDGE MUSCLE, TENDON, OR BONE EXPOSED? NO DRAINAGE AMOUNT/DESCRIPTION: SMALL SEROSANGUINOUS ODOR? NO TYPE OF SPONGE USED AND AMOUNT: BLACK SETTINGS: -125MMHG LOW CONTINUOUS TEACHING: HEALING PROCESS PT TOLERATED WELL
--- NOTE | 2019-11-06 14:08 | NUR ---
NUTRITION F/U PT TOLERATING [facility] SOFT DIET. ~50% INTAKE RECENT MEALS. WILL CONTINUE TO PROVIDE DIET, ENCOURAGE PO INTAKE. RD FOLLOWING
--- NOTE | 2019-11-06 14:28 | NUR ---
Rehab Note- Spoke with Pinky shaw/ Susana/[facility], case is still under review for possible inpatient acute rehab stay. Will continue to follow at this time. Margaret Ricketts RN Clinical Liaison, [facility] Rehab
--- NOTE | 2019-11-06 16:49 | NUR ---
Rehab Note- Received fax from Susana that the patient has been authorized for an inpatient acute rehab stay, Auth #[id number]. Thank you for this referral! Margaret Ricketts RN Clinical Liaison, [facility] Rehab
[2019-11-06 16:53] VITALS: BP 128/60
--- NOTE | 2019-11-06 17:49 | NUR ---
OT NOTE: MOD/MAX ASSIST WITH BED MOB; CONT C/O PAIN IN R GROIN AREA; SIT TO STAND WITH MIN ASSIST AND USE OF WALKER; AMB TO SINK WITH MIN ASSIST; ABLE TO PERFORM ORAL CARE, HAND WASHING, ADN FACE WASHING WITH CUES FOR WALKER MGMT WHILE STANDING AT SINK. PT VERY SOB FOLLOWING THESE ADL TASKS. AMB WITH MIN/MOD ASSIST AND POOR BALANCE FROM SINK TO CHAIR. MOD ASSIST WITH STAND TO SIT. PT CONFUSED THROUGHOUT TMT SESSION; TALKS WITH VERY LOW VOICE. EDUCATED ON UE AND LE EXS WHICH CAN BE PERFORMED FROM CHAIR LEVEL. ELVIN ZAYAS, OTR/L [phone]
--- NOTE | 2019-11-06 18:35 | NUR ---
I have reviewed this patient and I concur with the Shift Assessment completed by the Licensed Practical Nurse today this shift.
--- NOTE | 2019-11-06 18:44 | NUR ---
RESTING IN BED WITH EYES CLOSED, RESPIRATIONS EVEN AND UNLABORED. NO S/S OF ACUTE DISTRESS NOTED. CALL LIGHT IN REACH. WILL CONTINUE TO MONITOR.
--- NOTE | 2019-11-06 19:42 | NUR ---
OT NOTE: (DOS 11/05/2019) PT COMPLETED SIT TO STAND WITH MIN A. PT COMPLETED SIT TO SUPINE WITH MIN A. PT COMPLETED EOB SITTING BALANCE WITH MIN A FOR HYGIENE TASKS. PT COMPLETED BUE AROM EXS AT EOB. PT IS CONFUSED. NURSING AWARE. PT COMPLETED UB HYGIENE TASKS WITH MIN A SECONDARY TO CONFUSION. [phone] THANK YOU,ROSS LOAIZA
[2019-11-06 20:00] VITALS: BP 127/61
--- NOTE | 2019-11-06 20:45 | NUR ---
OT NOTE: PT IS CONFUSED. PT HAD URINE SOILED SHEETS. PT REQUIRED MIN A FOR BED MOB TASKS USING SIDE RAILS. PT REQUIRED MOD A FOR UB HYGIENE AND MAX/TOTAL A FOR LB HYGIENE. [phone] THANK YOU,ROSS LOAIZA
--- NOTE | 2019-11-07 02:38 | NUR ---
resting in bed with no needs noted or stated IV in place and [place] and call light in reach. BSC at bedside. no s/s of distress
[2019-11-07 04:00] VITALS: BP 139/74
[2019-11-07 04:59] LABS: BASOPHILS 0.1 % (0-2); EOSINOPHILS 2.4 % (0-7); HEMOGLOBIN 10.7 g/dL (12-16); IMMATURE GRANULOCYTES 3.7 % (0-5); LYMPHOCYTES 22.7 % (15-50); MCH 30.1 pg (26.0-34.0); MCHC 32.4 g/dL (31.0-37.0); MCV 92.7 fL (80.0-100.0); MEAN PLATELET VOLUME 9.3 fL (7.4-10.4); MONOCYTES 8.9 % (2-11); NEUTROPHILS 62.2 % (40-80); PLATELET COUNT 239 10x3/uL (130-400); RBC 3.56 10x6/uL (4.00-5.40); RDW 18.4 % (11.5-14.5); WBC 9.9 10x3/uL (4.8-10.8)
[2019-11-07 05:08] LABS: ANION GAP 9.1 mmol/L (8-16); CALCIUM 8.6 mg/dL (8.5-10.1); CARBON DIOXIDE 27.4 mmol/L (21.0-32.0); CREATININE - SERUM 0.8 mg/dL (0.6-1.3); POTASSIUM - SERUM 3.5 mmol/L (3.5-5.1)
--- NOTE | 2019-11-07 07:05 | NUR ---
RESTING IN BED WITH EYES CLOSED, RESPIRATIONS EVEN AND UNLABORED. NO S/S OF ACUTE DISTRESS NOTED. WOUNDVAC AND ARIES DRAIN TO RIGHT THIGH, SEROUS DRAINAGE. ON 2L O2, NC. IV TO RIGHT WRIST, SL. SITE PATENT WITHOUT REDNESS OR SWELLING. CALL LIGHT IN REACH. WILL CONTINUE TO MONITOR.
--- NOTE | 2019-11-07 07:52 | MORECARE ---
CASE MANAGEMENT DISCHARGE SUMMARY PATIENT: YONAS CARDONA UNIT: [id number] ADM DATE: 10/30/19 AGE: 74 : [birth year] SEX: F ROOM/BED: D.2237 AUTHOR: KAYCE,DOC PHYSICIAN: REFERRING PHYSICIAN: VAMSI FLAHERTY MD DATE OF SERVICE: 11/07/19 Discharge Plan Patient Name: YONAS CARDONA Facility: [facility]:[place] : 1945 Planned Disposition: Inpatient Rehab Anticipated Discharge Date: Discharge Date: Expected LOS: Initial Reviewer: [email or web address] Initial Review Date: 11/01/2019 Generated: 11/07/19 8:52 am Comments DCP- Discharge Planning Updated by [id number]: Alejandra Nas on 11/07/19 6:[address] Received a call from Margaret in inpatient rehab. She states they have received insurance authorization to admit. I called the patient's brother, Awilda, and informed him. Patient and brother in agreement to discharge to inpatient rehab today at [facility]. DCP- Discharge Planning Updated by [id number]: Aisha Swift on 11/01/19 4:[address] Patient Name: YONAS CARDONA Admission Status: Urgent Accout number: [id number] Admission Date: 10-30-2019 : 1945 Admission Diagnosis: Attending: ADELINE FLAHERTY Current LOS: 2 Anticipated DC Date: Planned Disposition: Inpatient Rehab Primary [facility] Discharge Planning Comments: CM attempted to speak with patient regarding discharge planning. Patient confused and unable to answer questions appropriately. CM had seen patient last admission and prior to previous admission 10/09/19 patient lived at home alone independently and her brother Awilda lives next door. CM contacted patient's brother Awilda [phone] and he stated he would like to her to go back to Inpatient Rehab upon discharge. RACHELE signed. CM will continue to follow and assist as needed with discharge planning / needs. Dyehouse Worker: Aisha Swift DCPIA - Discharge Planning Initial Assessment Updated by [id number]: Aisha Swift on 11/01/19 6:10 pm * Is the patient Alert and Oriented? No * PCP FARO * Pharmacy [facility] * Preadmission Environment Home Alone * ADLs Independent * Other Equipment CANE , WALKER * List name and contact numbers for known caregivers / representatives who currently or will assist patient after discharge: AWILDA MAYES - BROTHER- [phone] LEIGHA - DAUGHTER- [phone] * Verbal permission to speak to the caregivers and representatives has been obtained from the patient. N/A * Community resources currently utilized None * Additional services required to return to the preadmission environment? No * Can the patient safely return to the preadmission environment? Yes * Has this patient been hospitalized within the prior 30 days at any hospital? Yes Coverage Notice Reviewer: [id number] Richard Swift Notice Issued Date-Time: 11/01/2019 17:51 Notice Type: Patient Choice Letter Notice Delivered To: Family Member Relationship to Patient: Brother Production Assistant Name: AWILDA MAYES Delivery Method: PHONE - Phone Rose Days: Prior Verbal Notification: Recipient Understood Notice: Yes Recipient Signature: Yes Med Rec Note Co-signed by Attending: Coverage Notice Comment: Reviewer: [id number] - Alejandra Lovell Notice Issued Date-Time: 11/07/2019 7:48 Notice Type: IM Discharge Notice Notice Delivered To: Patient Relationship to Patient: Self Production Assistant Name: Delivery Method: HAND - Hand Delivered Rose Days: Prior Verbal Notification: Recipient Understood Notice: Yes Recipient Signature: Yes Med Rec Note Co-signed by Attending: Coverage Notice Comment: IMM explained, signed, given, copy placed in MR Last DP export: 11/01/19 4:23 pm Patient Name: YONAS CARDONA Page [id number] at 0752 All edits/amendments must be made on the electronic document DICTATION DATE: 11/07/19751 END PACKER: CHILANGO 11/07/19 075 RPT#: [id number] DC DATE: STATUS: ADM IN [facility] [address] [place] [address] END OF REPORT
[2019-11-07] MEDS ORDERED: TESSALON PERLE100 MG PO (08:04)
[2019-11-07] MEDS ORDERED: MUCINEX DM ER1 EAC1 PO (08:04)
[2019-11-07] MEDS ORDERED: PULMICORT0.5 MG/21 UPD (08:05)
[2019-11-07] MEDS ORDERED: ALBUTEROL2.5 MG/3 M UPD (08:06)
[2019-11-07] MEDS ORDERED: ALBUTEROL SULF8.5 GM INH (08:07)
[2019-11-07 08:17] VITALS: BP 122/65
[2019-11-07 13:52] VITALS: BP 131/56
--- NOTE | 2019-11-07 16:06 | NUR ---
DISCHARGED PATIENT TO REHAB. DISCONTINUED IV, CATHETER TIP INTACT. CALLED REPORT TO ESTEFANY. WENT OVER DISCHARGE INSTRUCTIONS WITH PATIENT, VERBALIZED UNDERSTANDING. DENIES ANYTHING FURTHER.
--- NOTE | 2019-11-08 11:43 | MORECARE ---
CASE MANAGEMENT DISCHARGE SUMMARY PATIENT: YONAS CARDONA UNIT: [id number] ADM DATE: 10/30/19 AGE: 74 : [birth year] SEX: F ROOM/BED: D.2237 AUTHOR: KAYCE,DOC PHYSICIAN: REFERRING PHYSICIAN: VAMSI FLAHERTY MD DATE OF SERVICE: 11/08/19 Discharge Plan Patient Name: YONAS CARDONA Facility: [facility]:[place] : 1945 Planned Disposition: Inpatient Rehab Anticipated Discharge Date: Discharge Date: 11/07/2019 Expected LOS: 0 Initial Reviewer: [email or web address] Initial Review Date: 11/01/2019 Generated: 11/08/19 12:42 pm DCP- Discharge Planning Updated by [id number]: Alejandra Lovell on 11/07/19 6:[address] Received a call from Margaret in inpatient rehab. She states they have received insurance authorization to admit. I called the patient's brother, Awilda, and informed him. Patient and brother in agreement to discharge to inpatient rehab today at [facility]. DCP- Discharge Planning Updated by [id number]: Aisha Swift on 11/01/19 4:[address] Patient Name: YONAS CARDONA Admission Status: Urgent Accout number: [id number] Admission Date: 10-30-2019 : 1945 Admission Diagnosis: Attending: ADELINE FLAHERTY Current LOS: 2 Anticipated DC Date: Planned Disposition: Inpatient Rehab [facility] Discharge Planning Comments: CM attempted to speak with patient regarding discharge planning. Patient confused and unable to answer questions appropriately. CM had seen patient last admission and prior to previous admission 10/09/19 patient lived at home alone independently and her brother Awilda lives next door. CM contacted patient's brother Awilda [phone] and he stated he would like to her to go back to Inpatient Rehab upon discharge. RACHELE signed. CM will continue to follow and assist as needed with discharge planning / needs. Inside Sales Account Manager: Aisha Swift DCPIA - Discharge Planning Initial Assessment Updated by [email or web address]: Aisha Swift on 11/01/19 6:10 pm * Is the patient Alert and Oriented? No * PCP JEISONO * Pharmacy [facility] * Preadmission Environment Home Alone * ADLs Independent * Other Equipment CANE , WALKER * List name and contact numbers for known caregivers / representatives who currently or will assist patient after discharge: AWILDA MAYES - BROTHER- [phone] LEIGHA Ramos DAUGHTER- [phone] * Verbal permission to speak to the caregivers and representatives has been obtained from the patient. N/A * Community resources currently utilized None * Additional services required to return to the preadmission environment? No * Can the patient safely return to the preadmission environment? Yes * Has this patient been hospitalized within the prior 30 days at any hospital? Yes Coverage Notice Reviewer: [id number] Richard Swift Notice Issued Date-Time: 11/01/2019 17:51 Notice Type: Patient Choice Letter Notice Delivered To: Family Member Relationship to Patient: Brother Mortgage Protection Specialist Name: AWILDA MAYES Delivery Method: PHONE - Phone Rose Days: Prior Verbal Notification: Recipient Understood Notice: Yes Recipient Signature: Yes Med Rec Note Co-signed by Attending: Coverage Notice Comment: Reviewer: [id number] Richard Lovell Notice Issued Date-Time: 11/07/2019 7:48 Notice Type: IM Discharge Notice Notice Delivered To: Patient Relationship to Patient: Self Mortgage Protection Specialist Name: Delivery Method: HAND - Hand Delivered Rose Days: Prior Verbal Notification: Recipient Understood Notice: Yes Recipient Signature: Yes Med Rec Note Co-signed by Attending: Coverage Notice Comment: IMM explained, signed, given, copy placed in MR Last DP export: 11/07/19 6:52 a Patient Name: YONAS CARDONA Page [phone] at 1143 All edits/amendments must be made on the electronic document DICTATION DATE: 11/08/19 1142 TESTER ARMATURE OR FIELDS: CHILANGO 11/08/19 1142 RPT#: [id number] DC DATE:11/07/19 STATUS: DIS IN [facility] [address] [place] [address] END OF REPORT
== END 2019-11-07 16:07 | DRG 689 ==
LOC: D.ICU 15:52 → D.MS 15:52
PROVIDERS: Internal Medicine Nephrology; Thoracic Surgery (Cardiothoracic Vascular Surgery); ADMIT Emergency Medicine; ATTEND Emergency Medicine
DX: N30.01 Acute cystitis with hematuria (principal); N17.0 Acute kidney failure with tubular necrosis; J96.01 Acute respiratory failure with hypoxia; D62 Acute posthemorrhagic anemia; E87.1 Hypo-osmolality and hyponatremia; I25.10 Atherosclerotic heart disease of native coronary artery without angina pectoris; E11.65 Type 2 diabetes mellitus with hyperglycemia; E87.6 Hypokalemia; M06.9 Rheumatoid arthritis, unspecified; Z79.01 Long term (current) use of anticoagulants; R53.81 Other malaise; I12.9 Hypertensive chronic kidney disease with stage 1 through stage 4 chronic kidney disease, or unspecified chronic kidney disease; E11.22 Type 2 diabetes mellitus with diabetic chronic kidney disease; N18.9 Chronic kidney disease, unspecified; J20.9 Acute bronchitis, unspecified; E66.9 Obesity, unspecified; Z68.38 Body mass index [BMI] 38.0-38.9, adult; R49.0 Dysphonia; E11.21 Type 2 diabetes mellitus with diabetic nephropathy; E11.40 Type 2 diabetes mellitus with diabetic neuropathy, unspecified; Z86.711 Personal history of pulmonary embolism

== ENCOUNTER 2019-11-07 13:59 | Inpatient (IN) | payer MEDICARE ==
[~2019-11-07] VITALS: Ht 167.6 cm; Wt 146.5 kg
[~2019-11-07 13:59] MED LIST changes: +ALBUTEROL SULF8.5 GM INH; +ALBUTEROL2.5 MG/3 M UPD; +MUCINEX DM ER1 EAC1 PO; +PULMICORT0.5 MG/21 UPD; +TESSALON PERLE100 MG PO
--- NOTE | 2019-11-07 16:20 | NUR ---
RECIEVED FROM ACUTE CARE TO ROOM 1113B IN REHAB.PLESANTLY CONFUSED.ORIENTED TO SURROUNDINGS AND CALL LIGHT.
--- NOTE | 2019-11-07 17:46 | NUR ---
OT NOTE: PT COMPLETED BED MOB TASKS WITH MIN/MOD A. PT REQUIRED MIN A FOR UB HYGIENE TASKS. . PT IS CONFUSED. [phone] THANK YOU,ROSS LOAIZA
--- NOTE | 2019-11-07 18:15 | NUR ---
PT IN BED, MENU/H2O GIVEN, ASSESSMENT DONE, NO IMMEDIATE NEEDS NOTED, FALL PRECAUTIONS IN PLACE
[2019-11-07 22:38] VITALS: BP 111/43
[2019-11-08 02:53] VITALS: BP 111/43
--- NOTE | 2019-11-08 04:23 | NUR ---
PT ASLEEP IN BED, AROUSES TO VOICE,NO NEEDS NOTED,FLUIDS AND CALL LIGHT WITHIN REACH
--- NOTE | 2019-11-08 08:00 | NUR ---
PT RESTING IN BED WITH EYES OPEN CALL LIGHT IN REACH WILL MONITER
[2019-11-08 08:26] VITALS: BP 132/67
[2019-11-08 09:28] VITALS: Ht 167.6 cm; Wt 146.5 kg
--- NOTE | 2019-11-08 18:53 | NUR ---
BEDSIDE REPORT COMPLETE. PT SITTING UP IN BED WATCHING TV. ALERT AND ORIENTED X3. DENIES ANY NEEDS OR PAIN. RR EVEN AND UNLABORED. WOUND VAC TO RIGHT THIGH FUNCTIONING PROPERLY AND SEALED. ARIES DRAIN DRESSING C/D/I AND BULB COMPRESSED. CONTINUES ON 2L VIA NC. CL IN REACH. FALL PRECAUTIONS IN PLACE. WILL CONTINUE TO MONITOR
[2019-11-08 19:00] VITALS: BP 116/61
--- NOTE | 2019-11-09 02:51 | NUR ---
PT LYING IN BED ON RIGHT SIDE EYES CLOSED RESTING. RR EVEN AND UNLABORED. CL IN REACH
--- NOTE | 2019-11-09 04:57 | NUR ---
PT LYING IN BED ON LEFT SIDE EYES CLOSED RESTING. RR EVEN AND UNLABORED. CL IN REACH
[2019-11-09 08:00] VITALS: BP 144/66
--- NOTE | 2019-11-09 08:00 | NUR ---
PT RESTING IN BED WITH EYES OPEN CALL LIGHT IN REACH WILL MONITER
--- NOTE | 2019-11-09 19:05 | NUR ---
PT LYING IN BED ON RIGHT SIDE EYES CLOSED RESTING. EASILY AROUSED WITH VERBAL STIMULI. DENIES ANY NEEDS OR PAIN. RIGHT THIGH WOUND VAC FUNCTIONING PROPERLY. RIGHT ABD FOLD DRESSING C/D/I. RIGHT OUTER THIGH DRESSING C/D/I. NO SIGNS OF ACUTE DISTRESS NOTED. CALL LIGHT AND PERSONAL ITEMS WITHIN REACH. FALL PRECAUTIONS IN PLACE. WILL CONTINUE TO MONITOR
[2019-11-09 19:30] VITALS: BP 114/60
--- NOTE | 2019-11-09 22:10 | NUR ---
REMOVED OLD DRESSING FROM RIGHT THIGH AND ABDOMINAL FOLD. CLEANSED SITE WITH WOUND CLEANSER, PAT DRY WITH 4X4. RIGHT ABDOMINAL FOLD APPLIED MEDIHONEY AND COVERED WITH 4X10 BORDER GAUZE DRESSING. RIGHT OUTTER THIGH BORDER GAUZE DRESSING APPLIED. PT DENIES ANY OTHER NEEDS OR PAIN. CALL LIGHT WITHIN REACH BESIDE PT. BED ALARM ON. WILL CONTIUE TO MONITOR
--- NOTE | 2019-11-10 00:07 | NUR ---
PT LYING IN BED ON RIGHT SIDE EYES CLOSED RESTING COMFORTABLY. NO SIGNS OF ACUTE DISTRESS NOTED. CALL LIGHT WITHIN REACH. FALL PRECAUTIONS IN PLACE
--- NOTE | 2019-11-10 02:10 | NUR ---
ASSISTED PT TO RESTROOM WITH MIN ASSIST. INSTRUCTED PT TO PULL NURSE CORD WHEN FINISHED. PT VERBALIZED UNDERSTANDING.
--- NOTE | 2019-11-10 02:14 | NUR ---
ASSISTED PT BACK TO BED WITH MIN ASSIST. CALL LIGHT WITHIN REACH. FALL PRECAUTIONS IN PLACE.
--- NOTE | 2019-11-10 05:11 | NUR ---
PT LYING IN BED SUPINE EYES CLOSED RESTING. RR EVEN AND UNLABORED. CALL LIGHT WITHIN REACH. FALL PRECAUTIONS IN PLACE. WILL CONTINUE TO MONITOR
--- NOTE | 2019-11-10 08:08 | NUR ---
PT SITTING UP EATING BREAKFAST, DENIES NEEDS. WCTM.
[2019-11-10 08:52] VITALS: BP 130/50
--- NOTE | 2019-11-10 10:18 | NUR ---
PT AM MEDS ADMINISTERED. PT DENIES NEEDS. WCTM.
--- NOTE | 2019-11-10 18:05 | NUR ---
PT RESTING IN BED, DENIES NEEDS. WCTM.
--- NOTE | 2019-11-10 19:00 | NUR ---
GREETED PATIENT AND INTRODUCED MYSELF HER NURSE. PATIENT IS LAYING IN BED WATCHING TV AT THIS TIME. RESPIRATIONS EVEN. NO S/S OF DISTRESS. DENIES ANY NEEDS AT THIS TIME. CALL LIGHT WITHIN REACH AT LEFT SIDE OF PATIENT.
[2019-11-10 19:30] VITALS: BP 110/50
--- NOTE | 2019-11-11 00:03 | NUR ---
PT RESTING QUIETLY WITH EYES CLOSED. RESPIRATIONS EVEN. NO S/S OF DISTRESS. CALL LIGHT WITHIN REACH ON RIGHT SIDE OF PATIENT.
--- NOTE | 2019-11-11 04:34 | NUR ---
PT AWAKE WATCHING TV. DENIES ANY NEEDS AT THIS TIME. CALL LIGHT WITHIN REACH AT RIGHT SIDE.
[2019-11-11 05:26] LABS: BASOPHILS 0.1 % (0-2); EOSINOPHILS 2.3 % (0-7); HEMATOCRIT 28.3 % (36.0-48.0); HEMOGLOBIN 9.1 g/dL (12-16); LYMPHOCYTES 18.7 % (15-50); MCH 30.3 pg (26.0-34.0); MCHC 32.2 g/dL (31.0-37.0); MCV 94.3 fL (80.0-100.0); MEAN PLATELET VOLUME 9.8 fL (7.4-10.4); MONOCYTES 9.5 % (2-11); NEUTROPHILS 68.4 % (40-80); PLATELET COUNT 215 10x3/uL (130-400); RDW 19.5 % (11.5-14.5); WBC 9.2 10x3/uL (4.8-10.8)
[2019-11-11 05:43] LABS: CALC OSMOLALITY 283 mosm/kg (275-300); CALCIUM 7.8 mg/dL (8.5-10.1); CHLORIDE - SERUM 104 mmol/L (98-107); CREATININE - SERUM 0.6 mg/dL (0.6-1.3); POTASSIUM - SERUM 3.5 mmol/L (3.5-5.1); SODIUM 138 mmol/L (136-145); UREA NITROGEN 15 mg/dL (7-18); eGFR NON AFRICAN AMERICAN > 90 mL/min (90-120)
[2019-11-11 06:18] LABS: GLUCOSE 224 mg/dL (74-106)
[2019-11-11 08:33] VITALS: BP 143/65
--- NOTE | 2019-11-11 08:38 | NUR ---
ALERT AND ORIENTED. NO C/O PAIN. ATE BREAKFAST.
--- NOTE | 2019-11-11 12:33 | NUR ---
RESTING WO DISTRESS. ATE LUNCH. CL IN REACH.
--- NOTE | 2019-11-11 14:26 | NUR ---
Nutrition Follow-up: Diet: Diabetic [facility] Soft, thin liquids PO intake: ~70% average x last 7 meals Last BM: 11/11/19. WT: 323# (11/08/19) Meds noted: methotrexate, prednisone, miralax, lasix, 20U lantus QHS, humalog Labs noted: POC Glu 219(H) Skin: wounds to R upper thigh and abdomenal fold Recommend continue current diet. Noted patient has previously declined getting Glucerna on meal trays. PO intake appears adequate at this time, will continue to monitor. RD following.
--- NOTE | 2019-11-11 15:18 | NUR ---
BATH OFFERED. PATENT REFUSED.
--- NOTE | 2019-11-11 15:46 | NUR ---
WOUND VAC DRESSING CHANGED: RIGHT GROIN 3.5CM X 2CM X 1CM WOUND BED IS RED WITH SMALL AMOUNT OF NECROTIC TISSUE AROUND EDGE NO BONE, MUSCLE OR TENDON EXPOSED -125MMHG LOW CONTINUOUS 1 PIECE BLACK SPONGE USED PT TOLERATED WELL.
--- NOTE | 2019-11-11 16:16 | NUR ---
PATIENT ADMITTED TO REHAB FROM ACUTE FLOOR. HER PCP IS DR. CARCAMO. DME AT HOME IS A CANE AND A ROLLING WALKER. PATIENT LIVES ALONE AND HER BROTHER LIVES NEXT DOOR. DISCHARGE PLANS ARE FOR HER TO RETURN HOME. WILL CONTINUE TO FOLLOW WITH PATIENT.
--- NOTE | 2019-11-11 17:50 | NUR ---
NO CHANGE IN ASSESSMENT. ATE DINNER. NO C/O PAIN. WOUND CARE NURSE CHANGED WOUND VAC DRESSING R THIGH TODAY.
--- NOTE | 2019-11-11 18:48 | NUR ---
GREETED PATIENT AND INTRODUCED MYSELF HER NURSE. PATIENT IS LAYING IN BED RESTING AT THIS TIME. STATES THAT SHE HAS HAD A PRETTY HARD DAY IN THERAPY TODAY, BUT THAT SHE PROBABLY NEEDED IT. RESPIRATIONS EVEN. NO S/S OF DISTRESS. CALL LIGHT IN REACH ON RIGHT SIDE OF PATIENTS SIDE. DENIES ANY FURTHER NEEDS AT THIS TIME.
[2019-11-11 19:30] VITALS: BP 112/60
--- NOTE | 2019-11-11 21:56 | NUR ---
PT RESTING QUIETLY WITH EYES CLOSED. RESPIRATIONS EVEN. NO S/S OF DISTRESS. CALL LIGHT WITHIN REACH ON PATIENTS CHEST.
--- NOTE | 2019-11-11 23:46 | NUR ---
PT AWAKE AND LAYING IN BED WATCHING TV. RESPIRATIONS EVEN. NO S/S OF DISTRESS. DENIES ANY NEEDS THIS TIME. CALL LIGHT WITHIN REACH LAYING ON PATIENTS CHEST.
[2019-11-12 07:30] VITALS: BP 132/70
--- NOTE | 2019-11-12 08:14 | NUR ---
PT AM MEDS ADMINISTERED. PT DENIES NEEDS. WCTM.
--- NOTE | 2019-11-12 10:38 | NUR ---
PT IN THERAPY NO UPDRAFT GIVEN
--- NOTE | 2019-11-12 20:00 | NUR ---
PATIENT RECEIVED SITTING UP IN BED. ASSESSSMENT & VITAL SIGNS DONE. BED LOW. CALL LIGHT WITHIN REACH. WILL CONTINUE TO MONITOR.
[2019-11-12 20:15] VITALS: BP 131/68
--- NOTE | 2019-11-13 02:24 | NUR ---
I have reviewed this patient and I concur with the Shift Assessment completed by the Licensed Practical Nurse today this shift.
--- NOTE | 2019-11-13 04:00 | NUR ---
PATIENT AWAKE C/O PAIN TO ABDOMINAL FOLD AFTER DRESSING CHANGE. BED LOW. ALARM ON. CALL LIGHT WITHIN REACH. WILL CONTINUE TO MONITOR.
[2019-11-13 06:10] LABS: BASOPHILS 0.3 % (0-2); EOSINOPHILS 2.2 % (0-7); HEMATOCRIT 31.2 % (36.0-48.0); HEMOGLOBIN 9.8 g/dL (12-16); IMMATURE GRANULOCYTES 0.7 % (0-5); LYMPHOCYTES 17.7 % (15-50); MCH 30.4 pg (26.0-34.0); MCHC 31.4 g/dL (31.0-37.0); MCV 96.9 fL (80.0-100.0); MEAN PLATELET VOLUME 9.2 fL (7.4-10.4); MONOCYTES 10.2 % (2-11); NEUTROPHILS 68.9 % (40-80); PLATELET COUNT 238 10x3/uL (130-400); RBC 3.22 10x6/uL (4.00-5.40); RDW 19.8 % (11.5-14.5); WBC 7.4 10x3/uL (4.8-10.8)
[2019-11-13 06:42] LABS: CALC OSMOLALITY 278 mosm/kg (275-300); CALCIUM 8.3 mg/dL (8.5-10.1); CHLORIDE - SERUM 104 mmol/L (98-107); CREATININE - SERUM 0.6 mg/dL (0.6-1.3); POTASSIUM - SERUM 3.7 mmol/L (3.5-5.1); SODIUM 139 mmol/L (136-145); UREA NITROGEN 16 mg/dL (7-18); eGFR NON AFRICAN AMERICAN > 90 mL/min (90-120)
[2019-11-13 06:50] LABS: GLUCOSE 106 mg/dL (74-106)
[2019-11-13 08:00] VITALS: BP 165/75
--- NOTE | 2019-11-13 08:00 | NUR ---
PATIENT IS ALERT/ORIENT. CALL LIGHT WITHIN REACH. VOICES NO NEEDS AT THIS TIME. WILL CONTINUE WITH PLAN OF CARE
--- NOTE | 2019-11-13 10:12 | NUR ---
PATIENT IN REHAB ROOM. WORKING WITH PHYSICAL THERAPIST. DENIES ANY PAIN/DISC AT THIS TIME.
--- NOTE | 2019-11-13 13:47 | NUR ---
CARE TEAM MEETING: PATIENT IS PROGRESSING IN THERAPY AND HER TENATIVE DISCHARGE DATE IS 11/19/19. WILL CONTINUE TO FOLLOW WITH PATIENT.
--- NOTE | 2019-11-13 13:59 | NUR ---
I have reviewed this patient and I concur with the Shift Assessment completed by the Licensed Practical Nurse today this shift.
--- NOTE | 2019-11-13 14:34 | NUR ---
Nutrition Follow-up: Diet: Diabetic [facility] Soft, thin liquids PO intake: ~70% average x last 9 meals Last BM: 11/13/19. WT: 323# (11/08/19) Meds noted: prednisone, lasix, miralax, lantus, SSI Labs noted: POC Glu 346(H) Skin: wound VAC to right groin Question accuracy of weight. Patient with bedscale weight of 225# (10/30/19). Needs new weight. Continue diabetic diet. RD following.
--- NOTE | 2019-11-13 15:20 | NUR ---
WOUND CARE NURSE INTO CHANGE WOUND VAC. THIS NURSE ASST PATIENT WITH SHOWER AFTER WOUND VAC DRESSING CHANGED. PATIENT IS A MIN TO MODERATE ASST WITH SHOWER
--- NOTE | 2019-11-13 15:21 | NUR ---
WOUND VAC DRESSING CHANGE DATE: 11/13/2019 WOUND LOCATION: right thigh WOUND MEASUREMENTS: 4cm x 2cm x 2cm WOUND DESCRIPTION: wound measurements have changed/wound bed is bright red with very little necrotic tissue MUSCLE, TENDON, OR BONE EXPOSED? no DRAINAGE AMOUNT/DESCRIPTION: small serous ODOR? no TYPE OF SPONGE USED AND AMOUNT: black SETTINGS: -125mmhg low continuous TEACHING: dressing changes at home Pt tolerated well.
[2019-11-13 19:00] VITALS: BP 130/66
--- NOTE | 2019-11-13 20:25 | NUR ---
PT RECEIVED WITH EYES CLOSED AND CHEST RISING. AWOKEN TO VERBAL STIMULI. NO S/S OF DISTRESS NOTE. DENIES PAIN OR OTHER NEEDS AT THIS TIME. CALL LIGHT IN REACH. WILL CONTINUE TO OBSERVE.
--- NOTE | 2019-11-14 | NUR ---
Patient appears to be sleeping. Siderails x2 and call light within reach. Bed isin the low position. The patient appears comfortable.
[2019-11-14 08:00] VITALS: BP 159/62
--- NOTE | 2019-11-14 08:00 | NUR ---
PT RESTING IN BED WITH EYES OPEN CALL LIGHT IN REACH WILL MONITER
--- NOTE | 2019-11-14 11:05 | NUR ---
CLINICAL UPDATES FAXED TO [facility] AT , REGARDING AUTH. # [id number] WITH CONFORMATION RECIEVED
--- NOTE | 2019-11-14 18:34 | NUR ---
PT RESTING IN BED WITH EYES OPEN CALL LIGHT IN REACH NO PROBLEMS WILL MONITER
--- NOTE | 2019-11-14 19:15 | NUR ---
AWAKE AND ALERT. RESTING IN BED TAKING BREATHING TREATMENT. NO ACUTE DISTRESS NOTED. CALL LIGHT IN REACH.
[2019-11-14 19:35] VITALS: BP 133/67
--- NOTE | 2019-11-15 01:04 | NUR ---
RESTING IN BED WATCHING TV. RESPIRAITONS UNLABORED. NO DISTRESS NOTED.
--- NOTE | 2019-11-15 05:17 | NUR ---
QUIET HOURS. NO ACUTE CHANGES IN CONDITION THIS SHIFT. RESTING IN BED WITH NO DISTRESS NOTED. CALL LIGHT IN REACH.
[2019-11-15 05:27] LABS: BASOPHILS 0.6 % (0-2); EOSINOPHILS 1.4 % (0-7); HEMATOCRIT 32.3 % (36.0-48.0); HEMOGLOBIN 9.9 g/dL (12-16); IMMATURE GRANULOCYTES 0.9 % (0-5); LYMPHOCYTES 26.1 % (15-50); MCH 30.2 pg (26.0-34.0); MCHC 30.7 g/dL (31.0-37.0); MCV 98.5 fL (80.0-100.0); MEAN PLATELET VOLUME 8.8 fL (7.4-10.4); MONOCYTES 9.3 % (2-11); NEUTROPHILS 61.7 % (40-80); PLATELET COUNT 246 10x3/uL (130-400); RBC 3.28 10x6/uL (4.00-5.40); RDW 19.9 % (11.5-14.5); WBC 6.5 10x3/uL (4.8-10.8)
[2019-11-15 05:41] LABS: CALCIUM 8.2 mg/dL (8.5-10.1); CARBON DIOXIDE 28.8 mmol/L (21.0-32.0); CHLORIDE - SERUM 103 mmol/L (98-107); CREATININE - SERUM 0.6 mg/dL (0.6-1.3); SODIUM 139 mmol/L (136-145); UREA NITROGEN 15 mg/dL (7-18); eGFR NON AFRICAN AMERICAN > 90 mL/min (90-120)
[2019-11-15 05:42] LABS: CALC OSMOLALITY 276 mosm/kg (275-300); GLUCOSE 71 mg/dL (74-106); POTASSIUM - SERUM 3.1 mmol/L (3.5-5.1)
[2019-11-15 08:00] VITALS: BP 143/57
--- NOTE | 2019-11-15 08:00 | NUR ---
PATIENT IS ALERT/ORIENT. SITTING UP IN BED TO EAT BREAKFAST. CALL LIGHT WITHIN REACH. VOICES NO NEEDS AT THIS TIME. WILL CONTINUE WITH PLAN OF CARE
--- NOTE | 2019-11-15 10:34 | NUR ---
PATIENT HELPED IN SHOWER BY NURSE ASST.
--- NOTE | 2019-11-15 14:39 | NUR ---
WOUND VAC DRESSING CHANGE DATE:11/15/2019 WOUND LOCATION: right thigh WOUND MEASUREMENTS: 4cm x 2cm x 1.8cm WOUND DESCRIPTION: red/beefy MUSCLE, TENDON, OR BONE EXPOSED? no DRAINAGE AMOUNT/DESCRIPTION: moderate serous ODOR? slight TYPE OF SPONGE USED AND AMOUNT: black SETTINGS: -125mmhg low continuous TEACHING: dressing changes/wound healing Pt tolerated well.
--- NOTE | 2019-11-15 15:31 | NUR ---
PRN TYLENOL GIVEN FOR WOUND VAC SITE
[2019-11-15 19:08] VITALS: BP 118/58
--- NOTE | 2019-11-15 19:11 | NUR ---
AWAKE AND ALERT. RESTING IN BED. WOUND VAC IN PLACE. RESPIRATIONS UNLABORED. NO DISTRESS NOTED. CALL LIGHT IN REACH.
--- NOTE | 2019-11-16 01:09 | NUR ---
ASSISTED TO BATHROOM AND BACK TO BED. STATES HER WOUND SITE HURTS MORE THAN USUAL SINCE WOUND VAC WAS CHANGED. WILL CONTINUE TO MONITOR. NOW BACK IN BED WITH RESPIRATIONS UNLABORED.
--- NOTE | 2019-11-16 03:22 | NUR ---
UP TO BATHROOM AND BACK TO BED. NO ACUTE CHANGES IN CONDITION.
--- NOTE | 2019-11-16 05:11 | NUR ---
QUIET HOURS. UP AT TIMES TO BATHROOM. WOUND VAC IN PLACE. RESPRIATIONS UNLABORED. NO ACUTE DISTRESS NOTED. CALL LIGHT IN REACH.
[2019-11-16 07:52] VITALS: BP 155/80
--- NOTE | 2019-11-16 07:56 | NUR ---
PT RESTING IN BED EATING BREAKFAST TOLERATING WELL WILL MONITER
--- NOTE | 2019-11-16 10:00 | NUR ---
I have reviewed this patient and I concur with the Shift Assessment completed by the Licensed Practical Nurse today this shift.
[2019-11-16 19:25] VITALS: BP 115/74
--- NOTE | 2019-11-16 19:34 | NUR ---
AWAKE AND WATCHING TV. REPSIRAITONS UNLABORED, WOUND VAC IN PLACE TO RIGHT LEG. NO ACUTE DISTRESS NOTED. CALL LIGHT IN REACH.
--- NOTE | 2019-11-17 00:04 | NUR ---
RESTING IN BED WITH EYES CLOSED AND RESPIRAITONS UNLABORED. WOUND VAC IN PLACE. NO DISTRESS NOTED.
--- NOTE | 2019-11-17 03:01 | NUR ---
CONTINUES SLEEPING WITH RESPRIATIONS UNLABORED. NO DISTRESS NOTED.
--- NOTE | 2019-11-17 08:26 | NUR ---
PT RESTING IN BED WITH EYES OPEN CALL LIGHT IN REACH NO PROBLEMS WILL MONITER
--- NOTE | 2019-11-17 14:00 | NUR ---
I have reviewed this patient and I concur with the Shift Assessment completed by the Licensed Practical Nurse today this shift.
[2019-11-17 19:18] VITALS: BP 132/65
--- NOTE | 2019-11-17 19:33 | NUR ---
AWAKE AND ALERT. RESTING IN BED WITH RESPIRATIONS UNLABORED. WOUND VAC IN PLACE. NO ACUTE DISTRESS NOTED. CALL LIGHT IN REACH.
--- NOTE | 2019-11-18 00:22 | NUR ---
RESTING QUIETLY WITH EYES CLOSED AND RESPIRATIONS UNLABORED. NO DISTRESS NOTED.
--- NOTE | 2019-11-18 02:33 | NUR ---
WOKE UP AND C/O WOUND ON RIGHT GROIN BEING WORSE BY THE DRESSING WE PUT ON IT. AREA CLEANED AND HONEY APPLIED AND GAUZE LAID OVER IT WITHOUT TAPLE. HAS INCONTINENT EPISODE OF URINE. CLEANED UP AND NEW GOWN AND BRIEF APPLIED.
[2019-11-18 06:51] LABS: CALC OSMOLALITY 280 mosm/kg (275-300); CALCIUM 8.9 mg/dL (8.5-10.1); CARBON DIOXIDE 26.7 mmol/L (21.0-32.0); CHLORIDE - SERUM 104 mmol/L (98-107); CREATININE - SERUM 0.7 mg/dL (0.6-1.3); POTASSIUM - SERUM 3.7 mmol/L (3.5-5.1); SODIUM 140 mmol/L (136-145); UREA NITROGEN 15 mg/dL (7-18); eGFR NON AFRICAN AMERICAN 87 mL/min (90-120)
[2019-11-18 06:52] LABS: GLUCOSE 113 mg/dL (74-106)
[2019-11-18 07:21] LABS: BASOPHILS 0.5 % (0-2); EOSINOPHILS 1.3 % (0-7); HEMATOCRIT 32.9 % (36.0-48.0); HEMOGLOBIN 10.2 g/dL (12-16); IMMATURE GRANULOCYTES 0.7 % (0-5); MCH 30.8 pg (26.0-34.0); MCV 99.4 fL (80.0-100.0); MEAN PLATELET VOLUME 9.1 fL (7.4-10.4); MONOCYTES 7.4 % (2-11); NEUTROPHILS 60.1 % (40-80); PLATELET COUNT 272 10x3/uL (130-400); RBC 3.31 10x6/uL (4.00-5.40); RDW 20.1 % (11.5-14.5); WBC 7.4 10x3/uL (4.8-10.8)
[2019-11-18 08:00] VITALS: BP 168/84
--- NOTE | 2019-11-18 08:00 | NUR ---
PATIENT IS ALERT/ORIENT. SITTING UP AT THE SIDE OF THE BED TO EAT BREAKFAST. CALL LIGHT WITHIN REACH. VOICES NO NEEDS AT THIS TIME. WILL COTINUE WITH PLAN OF CARE
[2019-11-18] MEDS ORDERED: K-DUR20 MEQ PO (09:26)
--- NOTE | 2019-11-18 09:27 | RHP ---
PATIENT: YONAS CARDONA MEDICAL RECORD: [id number] ACCOUNT: [id number] LOCATION:[id number] : 49 ADMISSION DATE: 11/07/19 REHABILITATION HISTORY AND PHYSICAL EXAMINATION POST ADMISSION PHYSICIAN EXAMINATION DATE OF ADMISSION: 11/07/2019. ADMITTING DIAGNOSIS: Critical illness myopathy. HISTORY OF PRESENT ILLNESS: The patient is a 74-year-old female patient who was actually in the rehab and had a rapid response due to gross hematuria and hypertension. She was admitted to the [facility] hospital on 10/08/2019 with unstable anginal symptomatology. She was found to have significant disease of her left anterior descending, underwent a successful PTCA and stent placement through a vein graft. On 10/09/2019, she was discharged home. That afternoon, she had aspirin and Plavix to her additional regimen. She returned to the ED that evening per EMS with acute onset and swelling of her groin. She had an ultrasound, which showed a complex mass in the soft tissues of the right groin demonstrating an internal vascular flow compatible with pseudoaneurysm. The neck of the aneurysm measured approximately 1.[address] Valero and Dr. Faustin were notified, a FemoStop was placed. She was noted to be lethargic and hypotensive. She was taken to the OR for repair of the profunda femoral artery primarily, drainage of the hematoma, during the episodes became hypotensive and bradycardic, required chest compressions. She was still bleeding when brought back from the OR and had to go back in. She was admitted to inpatient surgery on 10/23/2019 and has been doing well and on 10/30/2019, she was noted to have dehiscence of her surgical wound to her right thigh with bleeding and shiv removed. Also, bleeding from the vaginal bladder was also found to be during her stay. She had OB-VEGETABLE CUTTER, which thoroughly assessed the patient. She also became hypotensive and was transferred back to the acute hospital and had scheduled surgeries per urology and cardiovascular. She was seen secondary to a pelvic ultrasound that showed a malignancy or blood clot in her bladder. The patient has had some acute confusion during her acute stay. She had been seen by OT, PT and speech therapy throughout her stay. She needs to be monitored closely and continued on clearance for bleeding from her bladder and blood thinner medications have been changed. She has got acute confusion. She has been requiring supplemental O2, dyspnea on exertion. She is monitoring her fingerstick blood sugars. She has got electrolyte protocol, pain control, wound care orders. She is on a wound VAC, has a ARIES drain. The patient has limited safety awareness. She is at risk for falls. She has got cues for self-care deficits. These are all barriers to her discharge home. She lives at home alone and her brother lives next door, was completely independent with ADLs and mobility prior to this, using a cane. She is currently set up for mod assist for ADLs, mod assist for mobility. Her and her family would like for her to return back home at her prior level of functioning. COMORBIDITIES: Include weakness. She has got a history of oropharyngeal dysphagia, obesity, acute hemorrhagic cystitis, COPD, acute blood loss anemia, obesity, sick sinus syndrome, rheumatoid arthritis, debility, hoarseness. PAST MEDICAL HISTORY: Significant for diabetes, thyroid problems, hypertension, MD, coronary bypass grafting, coronary artery disease, peripheral vascular disease, asthma, pneumonia, rheumatoid arthritis, acid reflux, osteoporosis, bacterial infection, menopause, depression. HISTORY AND PHYSICAL [id number] YONAS CARDONA PAST SURGICAL HISTORY: Includes gallbladder surgery, appendectomy, hysterectomy, coronary artery bypass grafting, and hematoma removal. ALLERGIES: CODEINE. CURRENT MEDICATIONS: Include methotrexate, she is on 10 mg every Monday. She is on prednisone otherwise every 48 hours, multivitamin, and folic acid daily. She is on Altace 5 mg daily, furosemide 40 mg daily, Cymbalta 60 mg daily, Plavix 75 mg daily, vitamin D 1000 units daily, folic acid 1 mg daily, carvedilol 6.25 mg b.i.d. with meals, MiraLax 17 grams in 8 ounces of water daily, Synthroid 175 mcg daily. She is on Lantus 20 units subq daily, Madeline 60 mg b.i.d., Mucinex D 1 tab b.i.d., Pepcid 20 mg b.i.d., atorvastatin 80 mg q.h.s., Pulmicort 0.5 mg b.i.d., Ventolin updrafts q.i.d. She is on a glucose protocol for low blood sugars. She is on a high resistance sliding scale with Humalog. She is on tizanidine 2 mg t.i.d. as needed, Nitrostat p.r.n., and Tessalon Perles 100 mg t.i.d. p.r.n. cough. HABITS: No current alcohol or tobacco use. FAMILY HISTORY: Noncontributory. SOCIAL HISTORY: The patient hopes to return back home and get back to her prior level of functioning. REVIEW OF SYSTEMS: GENERAL: Does complain of weakness and fatigue. HEENT: Denies cold, cough, or congestion. CARDIOVASCULAR: Denies any chest pain. PHYSICAL EXAMINATION: VITAL SIGNS: Stable, afebrile. GENERAL: A morbidly obese female, in no distress upon exam. HEENT: Normocephalic and atraumatic. Mucosa moist. NECK: Supple. No lymphadenopathy. LUNGS: Clear in upper bender. No wheezing or rales. HEART: Regular rate and rhythm. No murmurs, rubs or gallops. ABDOMEN: Soft, benign, and nondistended. Positive bowel sounds times 4. EXTREMITIES: No clubbing, cyanosis, edema. Noted drains in place. NEUROLOGIC: She is slow to mentate. She does have noted weakness. ASSESSMENT: This is a 74-year-old female patient admitted to the rehab with a working diagnosis of critical illness myopathy secondary to prolonged hospital stay. The patient has potential to make improvement. We instituted the following multiple disciplinary therapies including, but not limited to physical, occupational, respiratory, speech, nutritional services, prosthetics and orthotics. Given her complex medical condition and risk for more complications, rehabilitation services cannot be provided at a low level of care such as a long-term facility. PLAN: 1. Admit to [facility] for intensive inpatient therapy to include the following disciplines: A. Physical therapy to improve gait, all transfer skills and bed mobility to a modified independent level. HISTORY AND PHYSICAL [id number] YONAS CARDONA B. Occupational therapy to improve activities of daily living to a modified independent level. C. Case management to assist with discharge planning and placement options. D. Nutrition to assist with nutritional needs. E. Rehabilitation nursing to assist in monitoring the patient's underlying medical conditions and to assist with any type of bowel or bladder management. 2. The patient's current medication and medical care will be continued. 3. The patient will be placed on standard fall precautions. 4. We will see her again in the a.m. on Monday. We will keep up to date with care team and CM and will follow up as needed. TRANSINT:[id number] Voice Confirmation ID: [id number] DOCUMENT ID: [id number] HECTOR notes whether there has been none or any medical/functional change since admission: - No change since prescreen. HECTOR attests patient continues to be appropriate for IRF: - Continues to be appropriate. VAMSI FLAHERTY MD at 0927 CC: [id number] DICTATION DATE: 11/08/19 0838 TICKET COUNTER: 11/08/[address] [facility] [address] [id number]
--- NOTE | 2019-11-18 09:28 | NUR ---
Nutrition Follow Up: Interview: Met with patient this am. She stated that her appetite comes and goes. She stated her appetite decreases when her wound area hurts. She denied recent N/V/D/C. She has been enjoying the food and no new complaints at this time. She denied need for nutritional supplements at this time. Wound vac present. Diet: Diabetic Mechanical Soft PO Intake: 91% avg x 9 meals BM: x 1 on 11/16 Significant Meds: KCl, Methotrexate, Folic Acid, Vit B Complex, Vit D, Miralax, Lantus, Pepcid, Humalog, Lipitor Significant Labs: POC glucose- 123, 133, 214, 269 Encourage high protein foods to promote wound healing. Clinical Dietitian to continue following and monitoring pt DHS.
--- NOTE | 2019-11-18 11:30 | NUR ---
OCCUPATIONAL THERAPIST IN ROOM. HELPING PATIENT WITH A SHOWER.
--- NOTE | 2019-11-18 13:36 | NUR ---
WOUND VAC DRESSING CHANGE DATE: 11/18/2019 WOUND LOCATION: right upper thigh WOUND MEASUREMENTS: 2cm x 3cm x 1cm (improved) WOUND DESCRIPTION: red/beefy MUSCLE, TENDON, OR BONE EXPOSED? no DRAINAGE AMOUNT/DESCRIPTION: moderate sanguinous ODOR? no TYPE OF SPONGE USED AND AMOUNT: black SETTINGS:-125mmhg low continuous TEACHING: dressing changes will be done by HH when pt is d/c'd
--- NOTE | 2019-11-18 17:07 | NUR ---
GLUCOSE LEVEL 70. ORANGE JUICE GIVEN
--- NOTE | 2019-11-18 18:45 | NUR ---
BEDSIDE REPORT COMPLETE. PT LYING IN BED ON LEFT SIDE EYES CLOSED RESTING COMFORTABLY. NO SIGNS OF ACUTE DISTRESS NOTED. WOUND VAC TO RIGHT THIGH WORKING PROPERLY NO LEAKS DETECTED. CALL LIGHT AND PERSONAL ITEMS WITHIN REACH. FALL PRECAUTIONS IN PLACE. WILL CONTINUE TO MONITOR
[2019-11-18 19:29] VITALS: BP 116/49
--- NOTE | 2019-11-19 00:38 | NUR ---
PT LYING IN BED EYES CLOSED RESTING. RR EVEN AND UNLABORED. CALL LIGHT WITHIN REACH. BED ALARM ON
--- NOTE | 2019-11-19 03:37 | NUR ---
PT LYING ON LEFT SIDE EYES CLOSED ASLEEP. RR EVEN AND UNLABORED. CL IN REACH
--- NOTE | 2019-11-19 06:03 | NUR ---
PT LYING IN BED AWAKE WATCHING MORNING NEWS. FSBS 134. DENIES ANY NEEDS OR PAIN. CALL LIGHT WITHIN REACH.FALL PRECAUTIONS IN PLACE
[2019-11-19 08:18] VITALS: BP 132/55
--- NOTE | 2019-11-19 08:26 | NUR ---
MEDS GIVEN PER OCT. VITALS STABLE. 100% OF BREAKFAST EATEN. PATIENT DENIES NEEDS AT THIS TIME. PATIENT DENIES ANY PAIN AT THIS TIME. BED IS IN LOW POSITION AND CALL LIGHT IS IN REACH. WOUND VAC TO RIGHT THIGH DRESSING IS CLEAN DRY AND INTACT.
--- NOTE | 2019-11-19 11:41 | NUR ---
PATIENT DISCHARGING HOME TODAY WITH FAMILY. [facility] WILL PROVIDE THERAPY AT HOME. [facility] WILL DELIVER A WOUND VAC TO PATIENT. DR. CARCAMO 11/21/2019 @ 9:45, DR. MORALES 12/11/2019 @ 10:45. PATIENT CHOICE FORM FOR HOME HEALTH AND [facility] FORMS SIGNED, EXPLAINED AND ONE OF EACH GIVEN TO PATIENT.NO COMPARE DATA REVIEWED PATIENT IS A CLIENT OF [facility] AND DOESNT WANT TO CHANGE. DISCHARGE INSTRUCTIONS FAXED TO PCP, HOME HEALTH AND REVIEWED WITH PATIENT.DISCHARGE INSTRUCTIONS FAXED TO [facility] ( ) AUTH. # [id number] WITH CONFORMATION RECIEVED
--- NOTE | 2019-11-20 14:53 | NUR ---
RECIEVED CALL FROM [facility], STATING THAT THEY WOULD NOT ADMITT PATIENT THAT THEY FELT SHE WAS UNSAFE AND THAT HER HOUSE WAS VERY UNCLEANED. I SPOKE WITH PATIENT AND SHE SAID THAT SHE FELT SAFE AT HOME AND THAT SHE DECLINES TO GO TO SNF. SHE WANTED A DIFFERENT HOME HEALTH. SHE SAID THAT [facility] SENT A MAN AND SHE WAS UNCOMFORTABLE WITH HIM BEING IN HER HOME.I SENT A REFERRAL TO [facility] AND TO [facility].
== END 2019-11-19 13:41 | disposition home health service (06) | DRG 92 ==
LOC: D.REHAB 13:59
PROVIDERS: ADMIT Emergency Medicine; ATTEND Emergency Medicine
DX: G72.81 Critical illness myopathy (principal); D62 Acute posthemorrhagic anemia; Z68.43 Body mass index [BMI] 50.0-59.9, adult; N30.00 Acute cystitis without hematuria; R53.81 Other malaise; R49.0 Dysphonia; M06.9 Rheumatoid arthritis, unspecified; I49.5 Sick sinus syndrome; E66.9 Obesity, unspecified; J44.9 Chronic obstructive pulmonary disease, unspecified; R13.12 Dysphagia, oropharyngeal phase; I10 Essential (primary) hypertension; Z95.1 Presence of aortocoronary bypass graft; I25.10 Atherosclerotic heart disease of native coronary artery without angina pectoris; Z79.01 Long term (current) use of anticoagulants; E11.9 Type 2 diabetes mellitus without complications; M81.0 Age-related osteoporosis without current pathological fracture; K21.9 Gastro-esophageal reflux disease without esophagitis; Z78.0 Asymptomatic menopausal state

== ENCOUNTER → 2020-01-09 13:35 | Outpatient (CLI) | payer OTHER ==
[2019-11-08 09:28] VITALS: BMI 52.1
[~2020-01-09 13:35] MED LIST changes: +K-DUR20 MEQ PO
== END | disposition home or self-care (01) ==
LOC: D.RT 13:35
PROVIDERS: ATTEND Internal Medicine Pulmonary Disease
DX: R49.0 Dysphonia (principal); R05 Cough

== ENCOUNTER 2020-03-09 06:00 | Emergency (ER) | payer OTHER ==
[~2020-03-09] VITALS: Ht 167.6 cm; Wt 104.3 kg
[2020-03-09 06:04] VITALS: Ht 167.6 cm; Wt 104.3 kg
[2020-03-09] MEDS ORDERED: ELIQUIS5 MG PO (06:29)
[2020-03-09 07:00] LABS: CALC OSMOLALITY 274 mosm/kg (275-300); CALCIUM 8.5 mg/dL (8.5-10.1); CARBON DIOXIDE 27.5 mmol/L (21.0-32.0); CHLORIDE - SERUM 100 mmol/L (98-107); CREATININE - SERUM 1.5 mg/dL (0.6-1.3); POTASSIUM - SERUM 3.8 mmol/L (3.5-5.1); SODIUM 134 mmol/L (136-145); UREA NITROGEN 21 mg/dL (7-18); eGFR NON AFRICAN AMERICAN 36 mL/min (90-120)
[2020-03-09 07:01] LABS: GLUCOSE 171 mg/dL (74-106)
[2020-03-09 07:11] LABS: ALBUMIN 2.7 g/dL (3.4-5.0); ALKALINE PHOSPHATASE 91 U/L (30-120); ALT (SGPT) 11 U/L (10-68); AMYLASE - SERUM 30 U/L (25-115); LIPASE 56 U/L (73-393); THYROID STIMULATING HORMONE 13.86 uIU/mL (0.36-3.74)
[2020-03-09 07:12] LABS: TROPONIN-I < 0.017 ng/mL (0.000-0.060)
[2020-03-09 07:19] LABS: HEMATOCRIT 48.2 % (36.0-48.0); HEMOGLOBIN 15.8 g/dL (12-16); LYMPHOCYTES 13.2 % (15-50); MCH 31.2 pg (26.0-34.0); MCHC 32.8 g/dL (31.0-37.0); MCV 95.3 fL (80.0-100.0); MEAN PLATELET VOLUME 9.3 fL (7.4-10.4); NEUTROPHILS 72.2 % (40-80); PLATELET COUNT 236 10x3/uL (130-400); RBC 5.06 10x6/uL (4.00-5.40); RDW 13.4 % (11.5-14.5); WBC 10.7 10x3/uL (4.8-10.8)
[2020-03-09 08:36] LABS: BACTERIA MODERATE /hpf (NEGATIVE); BILIRUBIN NEGATIVE (NEGATIVE); EPITHELIAL CELLS 0-5 /hpf (0-5); GLUCOSE NEGATIVE (NEGATIVE); KETONE NEGATIVE (NEGATIVE); NITRITE NEGATIVE (NEGATIVE); WHITE CELLS - URINE 25-50 /hpf (NEGATIVE)
[2020-03-09 08:37] LABS: RED CELLS - URINE 0-5 /hpf (0-5)
[2020-03-09] MEDS ORDERED: MACROBID100 MG PO (10:30)
[2020-03-09 11:32] VITALS: BP 116/77
== END 2020-03-09 11:30 | disposition home or self-care (01) ==
LOC: D.ER 06:00
PROVIDERS: Emergency Medicine
DX: K59.00 Constipation, unspecified (principal); N39.0 Urinary tract infection, site not specified; E11.9 Type 2 diabetes mellitus without complications; I10 Essential (primary) hypertension; I25.2 Old myocardial infarction; J45.909 Unspecified asthma, uncomplicated; K21.9 Gastro-esophageal reflux disease without esophagitis; Z79.4 Long term (current) use of insulin

== ENCOUNTER → 2020-11-10 09:54 | Outpatient (CLI) | payer OTHER ==
[2020-03-09 06:04] VITALS: BMI 52.1
--- NOTE | 2020-11-11 16:12 | EC ---
PATIENT:YONAS CARDONA DATE OF SERVICE: 11/10/20 SEX: F MEDICAL RECORD: [id number] DATE OF : 49 LOCATION:[facility] AGE OF PATIENT: 75 ADMISSION DATE: 11/10/20 REFERRING PHYSICIAN: INTERPRETING PHYSICIAN: ROCKY MOREIRA MD ECHOCARDIOGRAM REPORT ECHO CHARGES 4 ECHO COMPLETE Date: 11/10/20 CLINICAL DIAGNOSIS: HEART MURMUR HX OF CAD/CABG ECHOCARDIOGRAPHIC MEASUREMENTS (adult normal given) AC root (d.<3.7cm) 3.1 cm LV Septum d (<1.2 cm> 1.1 cm Valve Excursion 1.5 cm LV Septum (systole) 1.4 cm Left Atria (s.<4.0cm> 3.7 cm LVPW d(<1.2cm) 1.1 cm RV (d.<2.3cm) 2.9 cm LVPW (sytole) 1.3 cm LV diastole(<5.6CM) 4.8 cm MV E-F(>70mm/sec) cm LV systole 3.2 cm LVOT Diameter 1.8 cm MV exc.(>10mm) 1.2 cm Est.ejection fraction (50-75%) % DOPPLER: LVIT cm/sec A 111.0cm/sec E 70.0 cm/sec LA cm/sec RVSP 22 mmHg LVOT 75 cm/sec AOP1/2T m/s Asc. Ao 127 cm/sec RVOT 56 cm/sec RA cm/sec PA 83 cm/sec AV Gradient Peak 6.43 mmHg AV Mean 3.81 mmHg AV Area 1.5 cm MV Gradient Peak 6.95 mmHg MV Mean 2.82 mmHg MV Area cm COMMENTS: Photography Assistant: 2 GLORY BELL Accordion Maker: 3 Dr. Rushing TAPE# PACS Pericardial Effusion N DATE OF SERVICE: Adequate 2D, color flow imaging, spectral Doppler, and M-Mode. FINDINGS: No LVH. LV internal dimensions are normal. Wall motion is normal. EF is greater than or equal to 55%. Aortic valve is tricuspid with good valve excursion. Left atrium is normal at 3.9 cm. Mitral valve shows no prolapse. Trace MR. Right side is grossly normal. Mild TR. TRANSINT:[id number] Voice Confirmation ID: [id number] DOCUMENT ID: [id number] ECHOCARDIOGRAM REPORT [id number] YONAS CARDONA,ROCKY Armas MD at 1612 CC: [id number] DICTATION DATE: 11/10/20 1434 BENCH REPAIR TECHNICIAN: 11/10/20 1810 DEP CLI 11/10/20 [address] [id number] [address] [id number]
== END | disposition home or self-care (01) ==
LOC: D.HCCECHO 09:54
PROVIDERS: ATTEND Internal Medicine Interventional Cardiology
DX: R01.1 Cardiac murmur, unspecified (principal)

== ENCOUNTER 2020-12-03 11:45 | Emergency (ER) | payer OTHER ==
[~2020-12-03] VITALS: Ht 162.6 cm; Wt 90.9 kg
[2020-12-03 11:48] VITALS: Ht 162.6 cm; Wt 90.9 kg
[2020-12-03 13:25] LABS: BASOPHILS 0.6 % (0-2); EOSINOPHILS 2.9 % (0-7); HEMATOCRIT 40.3 % (36.0-48.0); HEMOGLOBIN 12.9 g/dL (12-16); IMMATURE GRANULOCYTES 0.4 % (0-5); LYMPHOCYTE ABS# 2.26 10x3/uL (1.18-3.74); LYMPHOCYTES 19.5 % (15-50); MCH 32.2 pg (26.0-34.0); MCV 100.5 fL (80.0-100.0); MEAN PLATELET VOLUME 9.3 fL (7.4-10.4); MONOCYTES 7.5 % (2-11); NEUTROPHIL ABS# 8.02 10x3/uL (1.56-6.13); NEUTROPHILS 69.1 % (40-80); RBC 4.01 10x6/uL (4.00-5.40); RDW 13.8 % (11.5-14.5); WBC 11.6 10x3/uL (4.8-10.8)
[2020-12-03 13:35] LABS: ANION GAP 8.3 mmol/L (8-16); CALCIUM 9.2 mg/dL (8.5-10.1); CARBON DIOXIDE 30.8 mmol/L (21.0-32.0); CREATININE - SERUM 0.8 mg/dL (0.6-1.3); PLATELET COUNT 292 10x3/uL (130-400); POTASSIUM - SERUM 4.1 mmol/L (3.5-5.1)
[2020-12-03 13:41] LABS: ALBUMIN 3.2 g/dL (3.4-5.0); BILIRUBIN - TOTAL 0.31 mg/dL (0.2-1.3); PROTEIN - SERUM 6.6 g/dL (6.4-8.2)
[2020-12-03 13:48] LABS: APTT 27.6 SECONDS (22.8-39.4); INR 1.03 (0.85-1.17); PROTIME 12.5 SECONDS (11.6-15.0)
[2020-12-03 14:44] VITALS: BP 170/70
== END 2020-12-03 16:45 | disposition other institution (70) ==
LOC: D.ER 11:45
PROVIDERS: Family Medicine
DX: J38.00 Paralysis of vocal cords and larynx, unspecified (principal); E11.9 Type 2 diabetes mellitus without complications; I10 Essential (primary) hypertension; K21.9 Gastro-esophageal reflux disease without esophagitis; Z79.4 Long term (current) use of insulin

== ENCOUNTER 2021-02-19 10:02 | Emergency (ER) | payer OTHER ==
[~2021-02-19] VITALS: Ht 162.6 cm; Wt 88.2 kg
[2021-02-19 10:19] VITALS: Ht 162.6 cm; Wt 88.2 kg
[2021-02-19 10:59] LABS: BASOPHILS 1.2 % (0-2); EOSINOPHILS 1.9 % (0-7); HEMOGLOBIN 13.4 g/dL (12-16); LYMPHOCYTES 10.7 % (15-50); MCH 31.5 pg (26.0-34.0); MCHC 32.7 g/dL (31.0-37.0); MCV 96.2 fL (80.0-100.0); MEAN PLATELET VOLUME 6.8 fL (7.4-10.4); MONOCYTES 8.6 % (2-11); NEUTROPHILS 77.6 % (40-80); RBC 4.26 10x6/uL (4.00-5.40); RDW 14.6 % (11.5-14.5); WBC 12.7 10x3/uL (4.8-10.8)
[2021-02-19 11:08] LABS: PLATELET COUNT 378 10x3/uL (130-400)
[2021-02-19 11:13] LABS: CALC OSMOLALITY 276 mosm/kg (275-300); CALCIUM 9.1 mg/dL (8.5-10.1); CARBON DIOXIDE 26.7 mmol/L (21.0-32.0); CHLORIDE - SERUM 101 mmol/L (98-107); CREATININE - SERUM 0.9 mg/dL (0.6-1.3); GLUCOSE 118 mg/dL (74-106); POTASSIUM - SERUM 3.9 mmol/L (3.5-5.1); SODIUM 138 mmol/L (136-145); UREA NITROGEN 12 mg/dL (7-18); eGFR NON AFRICAN AMERICAN 65 mL/min (90-120)
[2021-02-19 11:28] LABS: ALBUMIN 3.4 g/dL (3.4-5.0); ALKALINE PHOSPHATASE 92 U/L (30-120); ALT (SGPT) 21 U/L (10-68); BILIRUBIN - TOTAL 0.56 mg/dL (0.2-1.3); CKMB 0.1 U/L (0.0-3.6); CREATINE KINASE 36 UL (21-215); PRO BNP 511 pg/mL (0-125); PROTEIN - SERUM 7.1 g/dL (6.4-8.2); TROPONIN-I < 0.017 ng/mL (0.000-0.060)
[2021-02-19 12:24] VITALS: BP 135/85
[2021-02-19] MEDS ORDERED: ALBUTEROL2.5 MG/3 M INH (14:04)
== END 2021-02-19 15:00 | disposition home or self-care (01) ==
LOC: D.ER 10:02
PROVIDERS: Family Medicine
DX: R06.09 Other forms of dyspnea (principal); J96.10 Chronic respiratory failure, unspecified whether with hypoxia or hypercapnia; E11.9 Type 2 diabetes mellitus without complications; I10 Essential (primary) hypertension; K21.9 Gastro-esophageal reflux disease without esophagitis; Z79.01 Long term (current) use of anticoagulants; Z79.4 Long term (current) use of insulin; J44.9 Chronic obstructive pulmonary disease, unspecified

== ENCOUNTER 2021-02-20 12:26 | Emergency (ER) | payer OTHER ==
[~2021-02-20] VITALS: Ht 162.6 cm; Wt 89.5 kg
[~2021-02-20 12:26] MED LIST changes: +ALBUTEROL2.5 MG/3 M INH
[2021-02-20 12:29] VITALS: Ht 162.6 cm; Wt 89.5 kg
[2021-02-20 12:54] LABS: BASOPHILS 0.4 % (0-2); EOSINOPHILS 0.3 % (0-7); HEMATOCRIT 39.4 % (36.0-48.0); HEMOGLOBIN 12.9 g/dL (12-16); LYMPHOCYTES 8.4 % (15-50); MCH 31.3 pg (26.0-34.0); MCHC 32.8 g/dL (31.0-37.0); MCV 95.5 fL (80.0-100.0); MEAN PLATELET VOLUME 7.3 fL (7.4-10.4); NEUTROPHILS 83.9 % (40-80); PLATELET COUNT 351 10x3/uL (130-400); RBC 4.13 10x6/uL (4.00-5.40); RDW 14.3 % (11.5-14.5); WBC 14.9 10x3/uL (4.8-10.8)
[2021-02-20 13:12] LABS: ANION GAP 13.7 mmol/L (8-16); CALCIUM 9.1 mg/dL (8.5-10.1); CARBON DIOXIDE 24.1 mmol/L (21.0-32.0); POTASSIUM - SERUM 3.8 mmol/L (3.5-5.1)
[2021-02-20 13:14] LABS: INR 1.17 (0.85-1.17); PROTIME 13.8 SECONDS (11.6-15.0)
[2021-02-20 13:15] LABS: APTT 36.2 SECONDS (22.8-39.4)
[2021-02-20 13:16] LABS: D-DIMER-QUANTITATIVE 1.22 ug/mLFEU (0.20-0.54)
[2021-02-20 13:21] LABS: CREATININE - SERUM 1.5 mg/dL (0.6-1.3)
[2021-02-20 13:25] LABS: BILIRUBIN - TOTAL 1.14 mg/dL (0.2-1.3); PROTEIN - SERUM 6.8 g/dL (6.4-8.2)
[2021-02-20 17:38] VITALS: BP 94/46
== END 2021-02-20 17:30 | disposition home or self-care (01) ==
LOC: D.ER 12:26
PROVIDERS: Family Medicine
DX: R60.9 Edema, unspecified (principal); E11.9 Type 2 diabetes mellitus without complications; I10 Essential (primary) hypertension; K21.9 Gastro-esophageal reflux disease without esophagitis; Z72.0 Tobacco use; Z79.4 Long term (current) use of insulin; Z79.01 Long term (current) use of anticoagulants; R06.02 Shortness of breath